=== PATIENT | male | born 1940 | race Caucasian/White ===

== ENCOUNTER → 2019-07-17 | Outpatient (CLI) | payer MEDICARE ==
[~2019-07-17] MED LIST: CEPH-350 PO; GABA300C10 PO; GUAI600T31 PO; KENALOG-40 ONE; LEVA15HF4 IH; LEVO50TA6 PO; LIDOCAINE 1% VIAL ONE; PANT40TA5 PO; RANI150T4 PO; RIVA20TA PO; ROSU5TAB PO; SOTA80TA PO; TAMS-14 PO; TRAM50TA PO
--- NOTE | 2019-07-17 14:25 | DIREP ---
PROCEDURE:FLUOROSCOPIC GUIDANCE NEEDLE PLACEMENT LEFT HIP COMPARISON:None. INDICATIONS:OA LEFT HIP, 0.2 MIN FLUORO TIME; 14.356 mGy TECHNIQUE:After explaining the risks, benefits, and alternatives, both oral and written informed consent was obtained from the patient for fluoroscopically-guided hip steroid injection. The patient's left hip area was sterilely prepped and draped. The proposed needle tract was anesthetized with 1% lidocaine solution. Under fluoroscopic guidance, a 22 gauge spinal needle was advanced into the left hip joint. A small amount of contrast was injected confirm positioning. A mixture of 6 cc 2% lidocaine, and 1 cc of Kenalog 40 was injected into the hip joint. The needle was then removed. The patient experienced no postprocedural complication. Total fluoroscopy time 0.2 minutes FINDINGS:Imaging documents needle placement and injection of the left femoral head and anatomic neck. CONCLUSION:Fluoroscopic-guided left hip joint injection. Dictated by: Anton Vides MD on 07/17/2019 at 02:23 PM
== END | disposition home or self-care (01) ==
LOC: RAD 12:10
PROVIDERS: ATTEND Orthopaedic Surgery
DX: M16.12 Unilateral primary osteoarthritis, left hip (principal)
CPT/HCPCS: 20610; 77002; J2001; J3301; Q9966

== ENCOUNTER → 2019-08-13 | Outpatient (CLI) | payer MEDICARE ==
--- NOTE | 2019-08-13 17:02 | DIREP ---
CORRECTION Corrected on: 08/13/2019; PROCEDURE:CT LOWER EXTREMITY-LT W/O COMPARISON:[facility], CT, CT PELVIS W/O, 08/13/2019, 01:16 PM. INDICATIONS:OSTEOARTHRITIS TECHNIQUE:Axial sections through the left hip were performed with sagittal and coronal reconstructions from source images. No contrast was administered. FINDINGS: BONES:No acute fractures. Old the deformity of the inferior pubic ramus on the left is consistent with a distant fracture, now healed. There osteophytes at the margins of the left acetabulum. The articular surface of the left femur is smooth. The anterior superior portion of the left iliac wing is oriented in an AP plane rather than oblique consistent with old fracture. The SI joint on the left is obliterated JOINTS:Subtle calcification of the acetabular labrum. No narrowing of the joint space. Left SI joint is obliterated. SOFT TISSUES:Normal OTHER:Negative. CONCLUSION:Old fracture inferior pubic ramus and presumed left iliac wing. No significant DJD of the acetabular or femoral articular surfaces. Calcification of the labrum. 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 Dictated by: Magaly Tyler MD on 08/13/2019 at 04:57 PM Dictated by: Magaly Tyler MD on 08/13/2019 at 05:10 PM
--- NOTE | 2019-08-13 17:09 | DIREP ---
PROCEDURE:CT PELVIS W/O COMPARISON:[facility], CT, CT LOWER EXTREMITY-LT W/O, 08/13/2019, 01:18 PM. INDICATIONS:OSTEOARTHRITIS TECHNIQUE:Axial images were created through the pelvis without intravenous contrast material. No oral contrast was administered. Sagittal and coronal reconstructions were performed from source images. 3D surface reconstructions were also performed at the console. FINDINGS: AORTA/VASCULAR:Normal. No aneurysm. RETROPERITONEUM:Normal. No mass or adenopathy. BOWEL/MESENTERY:Normal. There is no intestinal obstruction, free fluid, free air or mesenteric inflammatory changes. Normal appendix right lower quadrant ABDOMINAL WALL:Normal. No mass or hernia. PELVIC ORGANS:Normal. No visible mass. Pelvic organs appropriate for patient age. BONES:Dysmorphic pelvis would left iliac wing oriented in a the sagittal anterior posterior plane consistent with history of old fracture. There is a subtle deformity of the inferior pubic ramus on the left consistent with an old healed fracture. Left SI joint is obliterated . OTHER:Negative. 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 Dictated by: Magaly Tyler MD on 08/13/2019 at 05:01 PM
== END | disposition home or self-care (01) ==
LOC: RAD 12:45
PROVIDERS: ATTEND Orthopaedic Surgery
DX: M16.12 Unilateral primary osteoarthritis, left hip (principal); N28.89 Other specified disorders of kidney and ureter
CPT/HCPCS: 72192; 73700

== ENCOUNTER 2019-09-22 11:44 | Inpatient (IN) | payer MEDICARE ==
[2019-09-17 11:39] VITALS: BP 119/70
[2019-09-17 12:21] LABS: BASOPHIL % 0.3 % (0.0-0.2); EOSINOPHIL # 0.1 10^3/uL (0.0-0.2); EOSINOPHIL % 2.2 % (0.0-5.0); LYMPHOCYTES # 1.4 10^3/uL (1.0-4.8); LYMPHOCYTES % 22.2 % (24.0-44.0); MEAN CELL HGB 33.9 pg (26-34); MEAN CELL HGB CONCENTRATION 33.4 g/dL (33-37); MEAN CORP VOLUME 101.5 fL (78-100); MEAN PLATELET VOLUME 10.6 fL (7.8-11.0); MONOCYTES # 0.6 10^3/uL (0.3-0.8); MONOCYTES % 10.2 % (5.0-12.0); NEUTROPHIL # 4.1 10^3/uL (1.8-7.7); NEUTROPHILS % 64.9 % (41.0-85.0); RED CELL DISTRIBUTION WIDTH 14.1 % (11.5-14.5); WHITE BLOOD CELL 6.3 10^3/uL (4.5-11.0)
[2019-09-17 13:18] LABS: CALCIUM 9.2 mg/dL (8.4-10.5); CARBON DIOXIDE 31.7 mmol/L (20.0-32)
[~2019-09-22] VITALS: Ht 170.2 cm; Wt 83.2 kg
[2019-09-22] VITALS (13 sets, daily range): BP systolic 113–155; BP diastolic 67–99
--- NOTE | 2019-09-22 11:02 | PCM.HP ---
History of Present Illness Reason for Visit: (1) Osteoarthritis of left hip ICD Code: M16.12 - Unilateral primary osteoarthritis, left hip SNOMED: [id number] Hx of Present Illness 79 year old male, healthy left hip pain worsening for the past several months. Tried injection with little relief. Complains of groin pain at night. HX of atrial fibrillation unable to take NSAIDs. BMI 28.0. 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 Travel History EBOLA RISK:Travel to/contact w: No Review of Systems Musculoskeletal: other (left hip pain) Allergies: Coded Allergies: No Known Allergies (Unverified , 09/17/19) Scheduled Gabapentin (Gabapentin), 1 CAP PO BID, (Reported) Levothyroxine Sodium (Levothyroxine Sodium), 1 TAB PO DAILY, (Reported) Pantoprazole Sodium (Pantoprazole Sodium), 1 TAB PO DAILY, (Reported) Ranitidine Hcl (Ranitidine Hcl), 1 TAB PO BID, (Reported) Rivaroxaban (Xarelto), 1 TAB PO HS, (Reported) Rosuvastatin 5MG (Crestor 5MG), 1 TAB PO DAILY, (Reported) Sotalol Hcl (Sotalol), 1 TAB PO BID, (Reported) Tamsulosin Hcl (Flomax), 1 CAP PO DAILY, (Reported) VTE VTE Risk Total Score: >5 VTE Risk Score VTE Risk: Score 0-1 = Low Risk (Aggressive mobilization; early ambulation; no VTE prophylaxis required) Score 2: Moderate Risk (Intermittent/Pneumatic Compression Device OR Lovenox/Heparin/Coumadin) Score 3-4: High Risk (Intermittent/Pneumatic Compression Device AND Lovenox/Heparin/Coumadin) Score > or =5: Highest Risk (Intermittent/Pneumatic Compression Device AND Lovenox/Heparin/Coumadin) VTE VTE Present on Admission: No Currently receiving anticoagul: Yes VTE Risk Total Score: >5 Exam Vital Signs Vital Signs Date Time Temp Pulse Resp B/P (MAP) Pulse Ox O2 Delivery O2 Flow Rate FiO2 09/17/19 11:39 97.5 53 18 119/70 (86) 95 Room Air General Appearance: Alert, Oriented X3, Cooperative, No acute distress HEENT: PERRLA Respiratory: Clear to auscultation, Normal air movement Cardiovascular: Regular rate Abdominal: Normal bowel sounds, Soft, No tenderness Extremities: No clubbing, No cyanosis, No edema, Other (left hip pain with ROM, limping, pain with internal rotation) Skin: No rash, No breakdown Neuro: Normal gait, Normal speech Psych/Mental Status: Mental status NL, Mood NL Assessment/Plan Assessment/Plan Patient History: Cerebrovascular disorder G8 BROTHER, , Age:89 Congestive heart failure G8 BROTHER, , Age:59 Diabetes mellitus 33 FATHER, , Age:86 No known health problems G8 SISTER G8 SISTER V19 CHILD V19 CHILD V19 CHILD Parkinson's disease G8 BROTHER, , Age:81 No Family History of: Alzheimer's disease Asthma Chronic obstructive pulmonary disease Diabetes insipidus Hypertension Plan Left hip OA: chronic, Left ANT today 09/22/19 monitor pain monitor incision PT/OT: WBAT LLE, walker training previous xray shows extensive traumatic arthritis ALEX PALACIOS NP Sep 22, 2019 11:02
[2019-09-22] MEDS: TYLENOL PO SCH ×3 (11:30→22:05)
[~2019-09-22 11:44] MED LIST changes: +ANCEF ONE; +BACTROBAN OINTMENT TP ONE; +BRIDION IV ONE; -CEPH-350 PO; +DECADRON ONE; +DILAUDID ONE; +DIPRIVAN IV ONE; +EXPAREL 133 MG/10 ML VIAL IJ ONE; -GUAI600T31 PO; -KENALOG-40 ONE; -LEVA15HF4 IH; -LIDOCAINE 1% VIAL ONE; +LIDOCAINE 2% VIAL ONE; +NEOSTIGMINE ONE; +NEURONTIN PO SCH; +NS 100ML 100 ML IV ONE; +SENSORCAINE 0.5% VIAL ONE; +SUBLIMAZE ONE; -TRAM50TA PO; +TYLENOL PO SCH; +VERSED ONE; +ZEMURON IV ONE; +ZOFRAN 4 MG/2 ML VIAL ONE
[2019-09-22] MEDS ORDERED: ULTRAM PO PRN ×2 (12:00→18:00)
[2019-09-22] MEDS ORDERED: ULTRAM PO SCH (12:00)
[2019-09-22] MEDS ORDERED: LACTATED RINGERS 1,000 ML IV SCH (12:00)
[2019-09-22] MEDS ORDERED: CEPACOL SORE THROAT LOZENGE MM PRN (12:00)
[2019-09-22] MEDS ORDERED: AMBIEN PO PRN (12:00)
[2019-09-22] MEDS ORDERED: TRANEXAMIC ACID IV ONE (12:16)
[2019-09-22] MEDS: LACTATED RINGERS 1,000 ML IV SCH ×2 (12:17→16:00)
[2019-09-22] MEDS ORDERED: NS 100ML 100 ML IV ONE (13:52)
[2019-09-22] MEDS ORDERED: NS 3000ML IRR IR ONE (13:52)
[2019-09-22] MEDS ORDERED: SODIUM CHLORIDE IR ONE (13:52)
[2019-09-22] MEDS ORDERED: WATER ONE (13:52)
[2019-09-22] MEDS ORDERED: NS 250ML 250 ML IV ONE (13:52)
[2019-09-22] MEDS ORDERED: TRANDATE IV PRN (14:00)
[2019-09-22] MEDS ORDERED: SUBLIMAZE IV PRN (14:00)
[2019-09-22] MEDS ORDERED: PHENERGAN IV PRN (14:00)
[2019-09-22] MEDS ORDERED: ANCEF 2 GM/D5W 50ML IV SCH (14:00)
[2019-09-22] MEDS ORDERED: APRESOLINE IV PRN (14:00)
[2019-09-22] MEDS: ANCEF 2 GM in NS 100ML 100 ML IV SCH ×2 (14:00→22:05)
[2019-09-22] MEDS ORDERED: DILAUDID IV PRN ×2 (14:00→18:00)
[2019-09-22] MEDS ORDERED: ZOFRAN 4 MG/2 ML VIAL IV ONE (14:00)
[2019-09-22] MEDS ORDERED: EPHEDRINE SULFATE ONE (17:38)
[2019-09-22] MEDS ORDERED: ZOFRAN 4 MG/2 ML VIAL ONE (17:54)
--- NOTE | 2019-09-22 17:57 | OPH ---
DATE OF SURGERY: 09/22/2019 PREOPERATIVE DIAGNOSIS: Osteoarthritis of the left hip. POSTOPERATIVE DIAGNOSIS: Osteoarthritis of the left hip. OPERATIVE PROCEDURE: Left total hip arthroplasty using Medacta with a size 60 Versafitcup with 2 screws, a cemented femoral stem size 6. The head was a 36 cobalt chrome with a neutral neck length. SURGEON: Meek Cornejo MD ANESTHESIA: General endotracheal. BLOOD LOSS: 600 mL. DRAINS: None. DESCRIPTION OF INDICATIONS: The patient is a 79-year-old male who has had pain about the left hip intermittently for several years. It has gotten worse in the last several months. He complains of groin pain as well as pain about the right thigh. He complains of night pain. He has had an intra-articular cortisone injection that helped him for several days. He is on Xarelto and cannot take any anti-inflammatories, so he takes Tylenol for the pain and gabapentin. The patient had a pelvic fracture many years ago and his pelvis has healed with some malrotation. Exam shows that he had about 90 degrees of flexion of the hip. He had basically minimal internal and external rotation with severe pain. 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 The x-rays show that he is [id number] medially and inferiorly with some osteophytes about the acetabulum. The patient was taken to the operating room for a total hip arthroplasty for pain relief. DESCRIPTION OF PROCEDURE: The patient was placed on the operating table in the supine position. General endotracheal anesthetic was induced without difficulty. The patient had the left foot and ankle well padded with cast padding and then placed in the traction boot with a piece of egg crate mattress pad in the anterior portion of the foot and ankle. The leg was then attached to the traction unit. Left lower extremity was then sterilely prepped and draped. The patient had the incision made anteriorly about the hip. The incision was taken through the skin and the subcutaneous tissues. The bleeding was controlled with cautery. The tensor fascia was opened in line with the skin incision and the muscle belly was retracted posteriorly. The rectus fascia was opened and the rectus muscle was retracted medially. The circumflex vessels were identified and coagulated with the Aquamantys device. The fat pad over the anterior capsule was excised. The patient then had the capsular incision made and the capsule was retracted proximally and laterally. The femoral neck cut was made with the power saw and the head was removed from the acetabulum using a corkscrew device. The fovea was cleared of any soft tissue and coagulated, and the bleeding was coagulated with the Aquamantys device. The patient's acetabulum was sequentially reamed up to a size 60. The 60 trial had a fairly good fit clinically as well as radiographically. It was a little loose, so we elected to reinforce the press fit with 2 screws. A 60 Versafitcup was impacted into the left acetabulum and we used two 6.5 cancellous screws to help stabilize it. The patient then had the trial liner placed in the acetabulum. Clinically, the alignment appeared satisfactory and radiographically, the alignment appeared satisfactory. The patient then had the posterior ligaments released as well as the anterior capsule. The hip was placed in maximal external rotation as well as hyperextension. The canal was opened with the box chisel and then subsequently with the opening rasp. The proximal femur was then sequentially rasped up to a size 6. We did a trial reduction with a 6 stem, the neutral neck length and initially a -3.5 neck and then a neutral neck length. The neutral neck length had good stability and seemed to more appropriately realign the leg length. The neutral neck length also gave us better stability about the hip. C-arm views showed satisfactory positioning of the components and satisfactory sizing. The trial components were removed. The acetabular liner was replaced and the permanent liner was impacted into position. The patient had the canal cleared with a canal brush. The large cement restrictor was placed at 13 cm. The cement was then introduced and pressure packed. The size 6 cemented stem was then cemented into position and the excess cement was removed with curettes. Once the cement had hardened, we impacted the 36 mm cobalt chrome neutral length head onto the Samaniego taper neck. The hip was reduced and again there was good stability clinically and radiographically, the leg lengths appeared appropriate and the sizing of the components appeared appropriate. The patient then had the wounds irrigated with Betadine-containing solution for 3 minutes. The Betadine solution was then irrigated from the hip and the capsule was closed with a #2 PDS in an interrupted manner. The tensor fascia was closed with a barbed #2 PDS in a running manner. The subcutaneous was closed with a barbed 2-0 Monocryl in a running manner and the skin was closed with yamini. A suction Prevena type dressing was applied. The patient was extubated in the operating room, sent to recovery in stable condition. Meek Cornejo MD DR: MICA/juana JOB# [id number]
[2019-09-22] MEDS: ULTRAM PO SCH ×2 (18:00→22:04)
[2019-09-22] MEDS ORDERED: PEPCID IV ONE (18:01)
[2019-09-22] MEDS ORDERED: PEPCID IV STA (18:03)
[2019-09-22] MEDS ORDERED: REGLAN IV STA (18:04)
--- NOTE | 2019-09-22 18:39 | DIREP ---
PROCEDURE:XRAY HIP MIN 2VW-LT COMPARISON:None. INDICATIONS:post total left hip FINDINGS: BONES:No acute fracture or loose bone fragment. JOINTS:Left femoral and acetabular components and screws appear well seated and in good alignment. SOFT TISSUES:Postoperative air, surgical drain and multiple skin yamini. OTHER:No additional findings. CONCLUSION:Postsurgical changes of recent left total hip arthroplasty. Dictated by: Fatoumata Suresh MD on 09/22/2019 at 06:36 PM
--- NOTE | 2019-09-22 19:45 | NUR ---
Patient arrived on unit
--- NOTE | 2019-09-22 20:06 | PCM.HP ---
History of Present Illness Reason for Visit: S/P Left Hip Replacement History of Present Illness Patient is a 79 M PMH of Afib (Xarelto), HLD, BPH and Hypothyroidism presents s/p Left Hip Arthroplasty with Orthopedic surgery today. Medicine team consulted for management of comorbidities. Patient pain is currently controlled. He denies any distress. He denies fever, chills, chest pain, dyspnea, or any other concerning symptoms. Labs, imaging reviewed. Medical hx and medications reviewed with patient. Patient has not worked with PT yet. He is tolerating PO. Past Medical History Cardiac: AFIB, Hyperlipidemia Renal/: Benign Prostatic Enlarg. Endocrine: Hypothyroidism Past Surgical History: Cholecystectomy, Hernia Repair, Total hip replacement, Other (Hip Surgery) Past Social History Smoke: Quit Alcohol: none Drugs: None Lives: with Family Travel Hx EBOLA RISK:Travel to/contact w: No Review of Systems Constitutional: No: Fever, Chills Eyes: No: Conjunctivae inflammation, Eyelid inflammation ENT: No: Nose discharge, Nose congestion Respiratory: No: Cough, Shortness of breath, SOB with excertion, Wheezing Cardiovascular: No: Chest Pain, Palpitations, Edema Gastrointestinal: No: Nausea, Vomiting, Abdominal Pain Genitourinary: No Incontinence, No Retention Musculoskeletal: No: neck pain, back pain Skin: No: Rash, Lesions, Jaundice, Bruising Neurological: No: Weakness, Numbness, Incoordination, Change in speech, Confusion, Seizures Allergies: Coded Allergies: No Known Allergies (Unverified , 09/17/19) Scheduled Gabapentin (Gabapentin), 1 CAP PO BID, (Reported) Levothyroxine Sodium (Levothyroxine Sodium), 1 TAB PO DAILY, (Reported) Pantoprazole Sodium (Pantoprazole Sodium), 1 TAB PO DAILY, (Reported) Ranitidine Hcl (Ranitidine Hcl), 1 TAB PO BID, (Reported) Rivaroxaban (Xarelto), 1 TAB PO HS, (Reported) Rosuvastatin 5MG (Crestor 5MG), 1 TAB PO DAILY, (Reported) Sotalol Hcl (Sotalol), 1 TAB PO BID, (Reported) Tamsulosin Hcl (Flomax), 1 CAP PO DAILY, (Reported) VTE VTE Risk Total Score: 5 VTE Risk Score VTE Risk: Score 0-1 = Low Risk (Aggressive mobilization; early ambulation; no VTE prophylaxis required) Score 2: Moderate Risk (Intermittent/Pneumatic Compression Device OR Lovenox/Heparin/Coumadin) Score 3-4: High Risk (Intermittent/Pneumatic Compression Device AND Lovenox/Heparin/Coumadin) Score > or =5: Highest Risk (Intermittent/Pneumatic Compression Device AND Lovenox/Heparin/Coumadin) VTE VTE Present on Admission: No Currently receiving anticoagul: Yes VTE Risk Total Score: 5 Exam Vital Signs Vital Signs Date Time Temp Pulse Resp B/P (MAP) Pulse Ox O2 Delivery O2 Flow Rate FiO2 09/22/19 18:25 97.1 73 16 148/78 (101) 96 Nasal Canula 32 General Appearance: Alert, Oriented X3, Cooperative, No acute distress HEENT: Atraumatic, PERRLA, EOMI, Mucous membr. moist/pink Respiratory: Clear to auscultation, Normal air movement Cardiovascular: Normal S1, Normal S2, No murmurs Abdominal: Normal bowel sounds, Soft, No tenderness Extremities: No edema, Normal pulses, No tenderness/swelling Skin: No rash, No breakdown, No lesions Neuro: Normal speech, Strength at 5/5 X4 ext, Normal tone, Sensation intact, Cranial nerves 3-12 NL Psych/Mental Status: Mental status NL, Mood NL Assessment/Plan Assessment/Plan Assessment/Plan Patient is a 79 M PMH of Afib (Xarelto), HLD, BPH and Hypothyroidism presents s/ p Left Hip Arthroplasty with Orthopedic surgery today. Patient History: Cerebrovascular disorder G8 BROTHER, , Age:91 Congestive heart failure G8 BROTHER, , Age:59 Diabetes mellitus 33 FATHER, , Age:86 No known health problems G8 SISTER G8 SISTER V19 CHILD V19 CHILD V19 CHILD Parkinson's disease G8 BROTHER, , Age:81 No Family History of: Alzheimer's disease Asthma Chronic obstructive pulmonary disease Diabetes insipidus Hypertension Plan 1. OA of Left Hip: s/p Left Hip Arthroplasty today. Cont pain control. PT to eval. 2. Afib: cont Xarelto, Betapace for rate control. 3. BPH: cont Tamsulosin 4. Hypothyroidism: cont Synthroid 5. DM: Hg A1C 6.9. No reported hx of DM. Patient can f/u with PCP outpatient. 6. PPx: Abbey Henson MICAH R MD Sep 22, 2019 20:06
[2019-09-22] MEDS ORDERED: XARELTO PO SCH (21:00)
[2019-09-22] MEDS: NEURONTIN PO SCH (22:03)
[2019-09-22] MEDS: BETAPACE PO SCH (22:04)
[2019-09-22] MEDS: PEPCID PO SCH (22:05)
[2019-09-22] MEDS: LIPITOR PO SCH (22:05)
[2019-09-23] VITALS: BP 112/64
[2019-09-23] MEDS: LACTATED RINGERS 1,000 ML IV SCH ×3 (00:41→22:00)
[2019-09-23] MEDS: ULTRAM PO SCH ×6 (04:00→20:40)
[2019-09-23 04:42] VITALS: BP 123/90
[2019-09-23 05:11] LABS: HEMOGLOBIN 12.8 g/dL (13.9-16.3); MEAN CELL HGB 34.1 pg (26-34); MEAN CELL HGB CONCENTRATION 33.3 g/dL (33-37); MEAN CORP VOLUME 102.4 fL (78-100); MEAN PLATELET VOLUME 10.3 fL (7.8-11.0); RED CELL DISTRIBUTION WIDTH 13.5 % (11.5-14.5); WHITE BLOOD CELL 13.1 10^3/uL (4.5-11.0)
[2019-09-23 05:18] LABS: CALCIUM 8.5 mg/dL (8.4-10.5); CARBON DIOXIDE 26.5 mmol/L (20.0-32)
[2019-09-23] MEDS: TYLENOL PO SCH ×3 (05:27→18:37)
[2019-09-23] MEDS: SYNTHROID PO SCH (05:33)
[2019-09-23] MEDS: ANCEF 2 GM in NS 100ML 100 ML IV SCH (05:33)
[2019-09-23 07:52] VITALS: BP 112/74
[2019-09-23] MEDS: COLACE PO SCH (08:42)
[2019-09-23] MEDS: PROTONIX PO SCH (08:42)
[2019-09-23] MEDS: NEURONTIN PO SCH ×2 (08:42→20:41)
[2019-09-23] MEDS: FLOMAX PO SCH (08:42)
[2019-09-23] MEDS: BETAPACE PO SCH ×2 (08:42→20:39)
[2019-09-23] MEDS: PEPCID PO SCH ×2 (08:42→20:41)
[2019-09-23] MEDS ORDERED: PEPCID PO SCH (09:00)
--- NOTE | 2019-09-23 10:19 | PRM.PN ---
Subjective Subjective Date: Sep 23, 2019 Time: 10:15 Subjective patient sitting on bedside, family and PT at bedside denies pain, states his left leg has numbness able to move left foot appetite good Patient History: Cerebrovascular disorder G8 BROTHER, , Age:91 Congestive heart failure G8 BROTHER, , Age:59 Diabetes mellitus 33 FATHER, , Age:86 No known health problems G8 SISTER G8 SISTER V19 CHILD V19 CHILD V19 CHILD Parkinson's disease G8 BROTHER, , Age:81 No Family History of: Alzheimer's disease Asthma Chronic obstructive pulmonary disease Diabetes insipidus Hypertension VTE VTE Risk Total Score: 5 VTE Risk Score VTE Risk: Score 0-1 = Low Risk (Aggressive mobilization; early ambulation; no VTE prophylaxis required) Score 2: Moderate Risk (Intermittent/Pneumatic Compression Device OR Lovenox/Heparin/Coumadin) Score 3-4: High Risk (Intermittent/Pneumatic Compression Device AND Lovenox/Heparin/Coumadin) Score > or =5: Highest Risk (Intermittent/Pneumatic Compression Device AND Lovenox/Heparin/Coumadin) Review of Systems Constitutional: No: Fever, Chills Eyes: No: Conjunctivae inflammation, Eyelid inflammation ENT: No: Nose discharge, Nose congestion Respiratory: No: Cough, Shortness of breath, SOB with excertion, Wheezing Cardiovascular: No: Chest Pain, Palpitations, Edema Gastrointestinal: No: Nausea, Vomiting, Abdominal Pain Genitourinary: No Incontinence, No Retention Musculoskeletal: No: neck pain, back pain Skin: No: Rash, Lesions, Jaundice, Bruising Neurological: No: Weakness, Numbness, Incoordination, Change in speech, Confusion, Seizures Allergies: Coded Allergies: No Known Allergies (Unverified , 09/17/19) Scheduled Gabapentin (Gabapentin), 1 CAP PO BID, (Reported) Levothyroxine Sodium (Levothyroxine Sodium), 1 TAB PO DAILY, (Reported) Pantoprazole Sodium (Pantoprazole Sodium), 1 TAB PO DAILY, (Reported) Ranitidine Hcl (Ranitidine Hcl), 1 TAB PO BID, (Reported) Rivaroxaban (Xarelto), 1 TAB PO HS, (Reported) Rosuvastatin 5MG (Crestor 5MG), 1 TAB PO DAILY, (Reported) Sotalol Hcl (Sotalol), 1 TAB PO BID, (Reported) Tamsulosin Hcl (Flomax), 1 CAP PO DAILY, (Reported) Objective Vitals and I/O Vital Sign - Last 24 Hours 09/22/19 09/22/19 09/22/19 09/22/19 11:44 11:44 13:07 13:17 Temp 97.0 Pulse 54 51 52 Resp 16 16 16 B/P (MAP) 155/99 (117) 125/84 (98) 140/67 (91) Pulse Ox 97 97 94 O2 Delivery Room Air Room Air Room Air Room Air 09/22/19 09/22/19 09/22/19 09/22/19 13:28 17:25 17:25 17:35 Temp 97.1 97.1 Pulse 55 76 69 Resp 16 16 16 B/P (MAP) 113/83 (93) 136/79 (98) 135/83 (100) Pulse Ox 98 97 96 O2 Delivery Room Air Non-Rebreather Non-Rebreather O2 Flow Rate 15 15 15 09/22/19 09/22/19 09/22/19 09/22/19 17:45 17:55 18:05 18:15 Temp 97.1 97.1 97.1 97.1 Pulse 65 67 70 70 Resp 16 16 16 16 B/P (MAP) 141/90 (107) 135/81 (99) 128/92 (104) 134/90 (105) Pulse Ox 97 97 94 96 O2 Delivery Non-Rebreather Nasal Canula Nasal Canula Nasal Canula O2 Flow Rate 15 3 3 3 09/22/19 09/22/19 09/22/19 09/22/19 18:25 20:00 20:38 21:00 Temp 97.1 97.7 97.7 Pulse 73 74 77 Resp 16 18 16 B/P (MAP) 148/78 (101) 137/68 (91) 126/70 (88) Pulse Ox 96 O2 Delivery Nasal Canula Nasal Canula Nasal Cannula Nasal Canula O2 Flow Rate 32 2.00 2.00 2.00 09/23/19 09/23/19 09/23/19 09/23/19 00:00 04:42 07:52 08:34 Temp 97.7 97.2 97.3 Pulse 68 66 69 69 Resp 16 18 18 18 B/P (MAP) 112/64 (80) 123/90 (101) 112/74 (87) Pulse Ox 92 96 O2 Delivery Nasal Canula Nasal Canula Nasal Canula Nasal Cannula O2 Flow Rate 2.00 2.00 2.00 1.50 FiO2 26 09/23/19 08:36 Resp 18 Pulse Ox 96 Intake and Output 09/22/19 09/22/19 09/23/19 15:00 23:00 07:00 Intake Total 200 ml 2400 ml 200 ml Output Total 190 ml 800 ml Balance 200 ml 2210 ml -600 ml General: Alert, Oriented X3, Cooperative, No acute distress HEENT: Atraumatic, PERRLA, EOMI, Mucous membr. moist/pink Lungs: Clear to auscultation, Normal air movement Heart: Normal S1, Normal S2, No murmurs Abdomen: Normal bowel sounds, Soft, No tenderness Extremities: No edema, Normal pulses, No tenderness/swelling Neuro: Normal speech, Strength at 5/5 X4 ext, Normal tone, Sensation intact, Cranial nerves 3-12 NL Psych/Mental Status: Mental status NL, Mood NL All Results(Lab/Rad) Laboratory Tests Test 09/22/19 17:29 09/23/19 04:45 Bedside Glucose 164 White Blood Count 13.1 10^3/uL Red Blood Count 3.75 10^6/uL Hemoglobin 12.8 g/dL Hematocrit 38.4 % Mean Corpuscular Volume 102.4 fL Mean Corpuscular Hemoglobin 34.1 pg Mean Corpuscular Hemoglobin Concent 33.3 g/dL Red Cell Distribution Width 13.5 % Platelet Count 219 10^3/uL Mean Platelet Volume 10.3 fL Sodium Level 138 mmol/L Potassium Level 4.5 mmol/L Chloride Level 103.0 mmol/L Carbon Dioxide Level 26.5 mmol/L Glucose Level 209 mg/dL Blood Urea Nitrogen 17 mg/dL Creatinine 1.34 mg/dL Calcium Level 8.5 mg/dL Anion Gap 13.0 Estimated GFR () 62.5 BUN/Creatinine Ratio 12.0 Current Medications Medications (Trade) Dose Ordered Sig/Eli Route PRN Reason Start Time Stop Time Status Last Admin Dose Admin Mupirocin (Bactroban Ointment) 1 gm OT ONCE TP 09/22/19 06:00 09/22/19 12:35 DC 09/22/19 12:28 Sodium Chloride 100 ml @ ud STK-MED ONCE IV 09/22/19 05:30 09/22/19 05:32 DC Cefazolin Sodium (Ancef) 1 gm STK-MED ONCE .ROUTE 09/22/19 05:30 09/22/19 05:32 DC Neostigmine Methylsulfate (Neostigmine) 10 mg STK-MED ONCE .ROUTE 09/22/19 11:04 09/22/19 11:05 DC Ondansetron HCl (Zofran 4 Mg/2 ml Vial) 4 mg STK-MED ONCE .ROUTE 09/22/19 11:04 09/22/19 11:05 DC Rocuronium Nebo (Zemuron) 100 mg STK-MED ONCE IV 09/22/19 11:04 09/22/19 11:06 DC Hydromorphone HCl (Dilaudid) 2 mg STK-MED ONCE .ROUTE 09/22/19 11:05 09/22/19 11:06 DC Fentanyl Citrate (Sublimaze) 100 mcg STK-MED ONCE .ROUTE 09/22/19 11:05 09/22/19 11:06 DC Propofol (Diprivan) 200 mg STK-MED ONCE IV 09/22/19 11:05 09/22/19 11:06 DC Bupivacaine HCl (Sensorcaine 0.5% Vial) 5 mg STK-MED ONCE .ROUTE 09/22/19 11:06 09/22/19 11:07 DC Lidocaine HCl (Lidocaine 2% Vial) 500 mg STK-MED ONCE .ROUTE 09/22/19 11:06 09/22/19 11:08 DC Rocuronium Nebo (Zemuron) 100 mg STK-MED ONCE IV 09/22/19 11:22 09/22/19 11:23 DC Acetaminophen (Tylenol) 1,000 mg OT PO 09/22/19 11:30 09/22/19 12:38 DC 09/22/19 12:29 Gabapentin (Neurontin) 400 mg OT PO 09/22/19 11:30 09/22/19 12:36 DC 09/22/19 12:29 Acetaminophen (Tylenol) 1,000 mg Q6H PO 09/22/19 11:30 10/22/19 11:29 Gabapentin (Neurontin) 400 mg Q24HRS PO 09/23/19 11:30 09/23/19 11:31 Gabapentin (Neurontin) 300 mg BID PO 09/22/19 21:00 10/22/19 20:59 09/23/19 08:42 Levothyroxine Sodium (Synthroid) 50 mcg ACB PO 09/23/19 06:30 10/23/19 06:29 09/23/19 05:33 Pantoprazole Sodium (Protonix) 40 mg DAILY PO 09/23/19 09:00 10/23/19 08:59 09/23/19 08:42 Sotalol HCl (Betapace) 80 mg BID PO 09/22/19 21:00 10/22/19 20:59 09/23/19 08:42 Tamsulosin HCl (Flomax) 0.4 mg DAILY PO 09/23/19 09:00 10/23/19 08:59 09/23/19 08:42 Famotidine (Pepcid) 20 mg BID PO 09/22/19 21:00 10/22/19 20:59 09/23/19 08:42 Rivaroxaban (Xarelto) 20 mg HS PO 09/22/19 21:00 09/22/19 17:40 DC Atorvastatin Calcium (Lipitor) 20 mg HS PO 09/22/19 21:00 10/22/19 20:59 09/22/19 22:05 Tramadol HCl (Ultram) 50 mg Q6H PO 09/22/19 12:00 09/22/19 17:40 DC Tramadol HCl (Ultram) 100 mg Q6H PRN PO PAIN 7 - 10 09/22/19 12:00 09/22/19 17:40 DC Zolpidem Tartrate (Ambien) 5 mg HS PRN PO INSOMNIA 09/22/19 12:00 10/22/19 11:59 Docusate Sodium (Colace) 100 mg DAILY PO 09/23/19 09:00 10/23/19 08:59 09/23/19 08:42 Throat Lozenges (Cepacol Sore Throat Lozenge) 1 each PRN PRN MM SORE THROAT 09/22/19 12:00 10/22/19 11:59 Famotidine (Pepcid) 20 mg DAILY PO 09/23/19 09:00 09/22/19 20:47 DC Cefazolin Sodium/ Dextrose (Ancef 2 Gm/D5W 50ml) 2 gm Q8 IV 09/22/19 14:00 09/22/19 12:46 DC Tranexamic Acid (Tranexamic Acid) 1,000 mg STK-MED ONCE IV 09/22/19 12:16 09/22/19 12:17 DC Cefazolin Sodium 2 gm/Sodium Chloride 100 ml @ 100 mls/hr Q8 IV 09/22/19 14:00 09/23/19 06:59 DC 09/23/19 05:33 Hydromorphone HCl (Dilaudid) 0.2 mg Q5M PRN IV PAIN 1-3 09/22/19 14:00 09/22/19 20:46 DC Fentanyl Citrate (Sublimaze) 25 mcg Q5MIN PRN IV PAIN 09/22/19 14:00 09/22/19 20:48 DC Ondansetron HCl (Zofran 4 Mg/2 ml Vial) 4 mg OT ONCE IV 09/22/19 14:00 09/22/19 14:01 DC 09/22/19 17:56 Promethazine HCl (Phenergan) 6.25 mg PRN PRN IV NAUSEA / VOMITING 09/22/19 14:00 09/22/19 20:47 DC Labetalol HCl (Trandate) 5 mg Q5MIN PRN IV HYPERTENSION 09/22/19 14:00 09/22/19 20:47 DC Hydralazine HCl (Apresoline) 5 mg Q5MIN PRN IV HYPERTENSION 09/22/19 14:00 09/22/19 20:45 DC Sodium Chloride (Sodium Chloride) 1,000 ml STK-MED ONCE IR 09/22/19 13:52 09/22/19 13:53 DC Sterile Water (Water) 1,000 ml STK-MED ONCE .ROUTE 09/22/19 13:52 09/22/19 13:53 DC Sodium Chloride 100 ml @ ud STK-MED ONCE IV 09/22/19 13:52 09/22/19 13:53 DC Sodium Chloride 250 ml @ ud STK-MED ONCE IV 09/22/19 13:52 09/22/19 13:54 DC Sodium Chloride (NS 3000ml Irr) 3,000 ml STK-MED ONCE IR 09/22/19 13:52 09/22/19 13:54 DC Rivaroxaban (Xarelto) 20 mg HS PO 09/23/19 18:00 10/23/19 17:59 Tramadol HCl (Ultram) 50 mg Q4HR PO 09/22/19 18:00 10/22/19 11:59 09/22/19 22:04 Tramadol HCl (Ultram) 100 mg Q4HR PRN PO PAIN MODERATE 09/22/19 18:00 10/22/19 11:59 Hydromorphone HCl (Dilaudid) 2 mg Q4H PRN IV PAIN 7 - 10 09/22/19 18:00 10/22/19 17:59 Ephedrine Sulfate (Ephedrine Sulfate) 50 mg STK-MED ONCE .ROUTE 09/22/19 17:38 09/22/19 17:40 DC Ondansetron HCl (Zofran 4 Mg/2 ml Vial) 4 mg STK-MED ONCE .ROUTE 09/22/19 17:54 09/22/19 17:56 DC Famotidine (Pepcid) 20 mg STK-MED ONCE IV 09/22/19 18:01 09/22/19 18:03 DC Famotidine (Pepcid) 20 mg STAT STAT IV 09/22/19 18:03 09/22/19 20:44 DC 09/22/19 18:12 Metoclopramide HCl (Reglan) 10 mg STAT STAT IV 09/22/19 18:04 09/22/19 20:44 DC 09/22/19 18:12 Course Sepsis Screening Results: Posi: NEGATIVE Sepsis Qualifier/Stage: NO DEFINITE RISK Vitals & review Data Vital Sign - Last 24 Hours 09/22/19 09/22/19 09/22/19 09/22/19 11:44 11:44 13:07 13:17 Temp 97.0 Pulse 54 51 52 Resp 16 16 16 B/P (MAP) 155/99 (117) 125/84 (98) 140/67 (91) Pulse Ox 97 97 94 O2 Delivery Room Air Room Air Room Air Room Air 09/22/19 09/22/19 09/22/19 09/22/19 13:28 17:25 17:25 17:35 Temp 97.1 97.1 Pulse 55 76 69 Resp 16 16 16 B/P (MAP) 113/83 (93) 136/79 (98) 135/83 (100) Pulse Ox 98 97 96 O2 Delivery Room Air Non-Rebreather Non-Rebreather O2 Flow Rate 15 15 15 09/22/19 09/22/19 09/22/19 09/22/19 17:45 17:55 18:05 18:15 Temp 97.1 97.1 97.1 97.1 Pulse 65 67 70 70 Resp 16 16 16 16 B/P (MAP) 141/90 (107) 135/81 (99) 128/92 (104) 134/90 (105) Pulse Ox 97 97 94 96 O2 Delivery Non-Rebreather Nasal Canula Nasal Canula Nasal Canula O2 Flow Rate 15 3 3 3 09/22/19 09/22/19 09/22/19 09/22/19 18:25 20:00 20:38 21:00 Temp 97.1 97.7 97.7 Pulse 73 74 77 Resp 16 18 16 B/P (MAP) 148/78 (101) 137/68 (91) 126/70 (88) Pulse Ox 96 O2 Delivery Nasal Canula Nasal Canula Nasal Cannula Nasal Canula O2 Flow Rate 32 2.00 2.00 2.00 09/23/19 09/23/19 09/23/19 09/23/19 00:00 04:42 07:52 08:34 Temp 97.7 97.2 97.3 Pulse 68 66 69 69 Resp 16 18 18 18 B/P (MAP) 112/64 (80) 123/90 (101) 112/74 (87) Pulse Ox 92 96 O2 Delivery Nasal Canula Nasal Canula Nasal Canula Nasal Cannula O2 Flow Rate 2.00 2.00 2.00 1.50 FiO2 26 09/23/19 08:36 Resp 18 Pulse Ox 96 Intake and Output 09/22/19 09/22/19 09/23/19 15:00 23:00 07:00 Intake Total 200 ml 2400 ml 200 ml Output Total 190 ml 800 ml Balance 200 ml 2210 ml -600 ml Laboratory Tests Test 09/22/19 17:29 09/23/19 04:45 Bedside Glucose 164 White Blood Count 13.1 10^3/uL Red Blood Count 3.75 10^6/uL Hemoglobin 12.8 g/dL Hematocrit 38.4 % Mean Corpuscular Volume 102.4 fL Mean Corpuscular Hemoglobin 34.1 pg Mean Corpuscular Hemoglobin Concent 33.3 g/dL Red Cell Distribution Width 13.5 % Platelet Count 219 10^3/uL Mean Platelet Volume 10.3 fL Sodium Level 138 mmol/L Potassium Level 4.5 mmol/L Chloride Level 103.0 mmol/L Carbon Dioxide Level 26.5 mmol/L Glucose Level 209 mg/dL Blood Urea Nitrogen 17 mg/dL Creatinine 1.34 mg/dL Calcium Level 8.5 mg/dL Anion Gap 13.0 Estimated GFR () 62.5 BUN/Creatinine Ratio 12.0 Current Medications Medications (Trade) Dose Ordered Sig/Eli PRN Reason Start Time Stop Time Status Last Admin Acetaminophen (Tylenol) 1,000 mg Q6H 09/22/19 11:30 10/22/19 11:29 Atorvastatin Calcium (Lipitor) 20 mg HS 09/22/19 21:00 10/22/19 20:59 09/22/19 22:05 Docusate Sodium (Colace) 100 mg DAILY 09/23/19 09:00 10/23/19 08:59 09/23/19 08:42 Famotidine (Pepcid) 20 mg BID 09/22/19 21:00 10/22/19 20:59 09/23/19 08:42 Gabapentin (Neurontin) 300 mg BID 09/22/19 21:00 10/22/19 20:59 09/23/19 08:42 Gabapentin (Neurontin) 400 mg Q24HRS 09/23/19 11:30 09/23/19 11:31 Hydromorphone HCl (Dilaudid) 2 mg Q4H PRN PAIN 7 - 10 09/22/19 18:00 10/22/19 17:59 Levothyroxine Sodium (Synthroid) 50 mcg ACB 09/23/19 06:30 10/23/19 06:29 09/23/19 05:33 Pantoprazole Sodium (Protonix) 40 mg DAILY 09/23/19 09:00 10/23/19 08:59 09/23/19 08:42 Rivaroxaban (Xarelto) 20 mg HS 09/23/19 18:00 10/23/19 17:59 Sotalol HCl (Betapace) 80 mg BID 09/22/19 21:00 10/22/19 20:59 09/23/19 08:42 Tamsulosin HCl (Flomax) 0.4 mg DAILY 09/23/19 09:00 10/23/19 08:59 09/23/19 08:42 Throat Lozenges (Cepacol Sore Throat Lozenge) 1 each PRN PRN SORE THROAT 09/22/19 12:00 10/22/19 11:59 Tramadol HCl (Ultram) 50 mg Q4HR 09/22/19 18:00 10/22/19 11:59 09/22/19 22:04 Tramadol HCl (Ultram) 100 mg Q4HR PRN PAIN MODERATE 09/22/19 18:00 10/22/19 11:59 Zolpidem Tartrate (Ambien) 5 mg HS PRN INSOMNIA 09/22/19 12:00 10/22/19 11:59 LEVEL 1 SEPSIS INFECTION CRITE: ABX Therapy LEVEL 2-SIRS (LIST ALL THAT AP: None/Not assessed O2 Sat by Pulse Oximetry: 96 Oxygen Flow Rate: 1.50 Assessment/Plan Assessment/Plan Plan 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 Cont pain control. PT to eval. monitor dressing, keep prevenia intact monitor pain labs reviewed ALEX PALACIOS NP Sep 23, 2019 10:19
--- NOTE | 2019-09-23 10:30 | NUR ---
DISCHARGE PLAN CM VISITED WITH PATIENT REGARDING D/C PLAN AND GOALS. PATIENT LIVES AT HOME ALONE IN HIS [address] IN [place]. HE IS INDEPENDENT OF ADLS. HE DOES HAVE A VERY SUPPORTIVE FAMILY. HE HAS A WALKER AND SHOWER CHAIR IN PLACE. HIS PCP IS DR ABENA PHAN IN [place]. HE HAS FINANCIALLY ABILITY TO PAY FOR HIS MEDICATIONS. CM EDUCATED PATIENT ON HOME HEALTH, OUT PATIENT, LONG-TERM AND SWING BED SERVICES. PATIENT DENIES THE NEED FOR ANY SERVICES AT THIS TIME. CHOICE REFUSAL SIGNED AND PLACED IN CHART. DISCHARGE GOAL IS FOR PATIENT TO DISCHARGE HOME WITH HIS GRANDSON IN [place] FOR 2-4 WEEKS AND CONTINUE ROUTINE CARE THERE UNTIL HE CAN SAFELY AMBULATE IN HIS OWN HOME. CM WILL CONTINUE TO MONITOR NEEDS OF PT UNTIL D/C.
[2019-09-23] MEDS: HUMULIN R SQ SCH ×4 (11:00→20:43)
[2019-09-23] MEDS ORDERED: NEURONTIN PO SCH (11:30)
[2019-09-23 11:42] VITALS: BP 101/59
--- NOTE | 2019-09-23 13:44 | PRM.PN ---
Subjective Subjective Date: Sep 23, 2019 Time: 13:30 Subjective Patient denies complaints. Pain controlled. He ambulated with PT today. Labs reviewed. No acute issues. Patient History: Cerebrovascular disorder G8 BROTHER, , Age:91 Congestive heart failure G8 BROTHER, , Age:59 Diabetes mellitus 33 FATHER, , Age:86 No known health problems G8 SISTER G8 SISTER V19 CHILD V19 CHILD V19 CHILD Parkinson's disease G8 BROTHER, , Age:81 No Family History of: Alzheimer's disease Asthma Chronic obstructive pulmonary disease Diabetes insipidus Hypertension VTE VTE Risk Total Score: 5 VTE Risk Score VTE Risk: Score 0-1 = Low Risk (Aggressive mobilization; early ambulation; no VTE prophylaxis required) Score 2: Moderate Risk (Intermittent/Pneumatic Compression Device OR Lovenox/Heparin/Coumadin) Score 3-4: High Risk (Intermittent/Pneumatic Compression Device AND Lovenox/Heparin/Coumadin) Score > or =5: Highest Risk (Intermittent/Pneumatic Compression Device AND Lovenox/Heparin/Coumadin) Review of Systems Allergies: Coded Allergies: No Known Allergies (Unverified , 09/17/19) Scheduled Gabapentin (Gabapentin), 1 CAP PO BID, (Reported) Levothyroxine Sodium (Levothyroxine Sodium), 1 TAB PO DAILY, (Reported) Pantoprazole Sodium (Pantoprazole Sodium), 1 TAB PO DAILY, (Reported) Ranitidine Hcl (Ranitidine Hcl), 1 TAB PO BID, (Reported) Rivaroxaban (Xarelto), 1 TAB PO HS, (Reported) Rosuvastatin 5MG (Crestor 5MG), 1 TAB PO DAILY, (Reported) Sotalol Hcl (Sotalol), 1 TAB PO BID, (Reported) Tamsulosin Hcl (Flomax), 1 CAP PO DAILY, (Reported) Objective Vitals and I/O Vital Sign - Last 24 Hours 09/22/19 09/22/19 09/22/19 09/22/19 11:44 11:44 13:07 13:17 Temp 97.0 Pulse 54 51 52 Resp 16 16 16 B/P (MAP) 155/99 (117) 125/84 (98) 140/67 (91) Pulse Ox 97 97 94 O2 Delivery Room Air Room Air Room Air Room Air 09/22/19 09/22/19 09/22/19/9/19 13:28 17:25 17:25 17:35 Temp 97.1 97.1 Pulse 55 76 69 Resp 16 16 16 B/P (MAP) 113/83 (93) 136/79 (98) 135/83 (100) Pulse Ox 98 97 96 O2 Delivery Room Air Non-Rebreather Non-Rebreather O2 Flow Rate 15 15 15 09/22/19 09/22/19 09/22/19 09/22/19 17:45 17:55 18:05 18:15 Temp 97.1 97.1 97.1 97.1 Pulse 65 67 70 70 Resp 16 16 16 16 B/P (MAP) 141/90 (107) 135/81 (99) 128/92 (104) 134/90 (105) Pulse Ox 97 97 94 96 O2 Delivery Non-Rebreather Nasal Canula Nasal Canula Nasal Canula O2 Flow Rate 15 3 3 3 09/22/19 09/22/19 09/22/19 09/22/19 18:25 20:00 20:38 21:00 Temp 97.1 97.7 97.7 Pulse 73 74 77 Resp 16 18 16 B/P (MAP) 148/78 (101) 137/68 (91) 126/70 (88) Pulse Ox 96 O2 Delivery Nasal Canula Nasal Canula Nasal Cannula Nasal Canula O2 Flow Rate 32 2.00 2.00 2.00 09/23/19 09/23/19 09/23/19 09/23/19 00:00 04:42 07:52 08:34 Temp 97.7 97.2 97.3 Pulse 68 66 69 69 Resp 16 18 18 18 B/P (MAP) 112/64 (80) 123/90 (101) 112/74 (87) Pulse Ox 92 96 O2 Delivery Nasal Canula Nasal Canula Nasal Canula Nasal Cannula O2 Flow Rate 2.00 2.00 2.00 1.50 FiO2 26 09/23/19 08:36 Resp 18 Pulse Ox 96 Intake and Output 09/22/19 09/22/19 09/23/19 15:00 23:00 07:00 Intake Total 200 ml 2400 ml 200 ml Output Total 190 ml 800 ml Balance 200 ml 2210 ml -600 ml General: Alert, Oriented X3, Cooperative, No acute distress HEENT: Atraumatic, PERRLA, EOMI, Mucous membr. moist/pink Neck: Supple, No JVD Lungs: Clear to auscultation, Normal air movement Heart: Normal S1, Normal S2, No murmurs Abdomen: Normal bowel sounds, Soft, No tenderness Extremities: No edema, Normal pulses, No tenderness/swelling Skin: No rashes, No breakdown, No significant lesion Neuro: Normal speech, Strength at 5/5 X4 ext, Normal tone, Sensation intact, Cranial nerves 3-12 NL Psych/Mental Status: Mental status NL, Mood NL All Results(Lab/Rad) Laboratory Tests Test 09/22/19 17:29 09/23/19 04:45 Bedside Glucose 164 White Blood Count 13.1 10^3/uL Red Blood Count 3.75 10^6/uL Hemoglobin 12.8 g/dL Hematocrit 38.4 % Mean Corpuscular Volume 102.4 fL Mean Corpuscular Hemoglobin 34.1 pg Mean Corpuscular Hemoglobin Concent 33.3 g/dL Red Cell Distribution Width 13.5 % Platelet Count 219 10^3/uL Mean Platelet Volume 10.3 fL Sodium Level 138 mmol/L Potassium Level 4.5 mmol/L Chloride Level 103.0 mmol/L Carbon Dioxide Level 26.5 mmol/L Glucose Level 209 mg/dL Blood Urea Nitrogen 17 mg/dL Creatinine 1.34 mg/dL Calcium Level 8.5 mg/dL Anion Gap 13.0 Estimated GFR () 62.5 BUN/Creatinine Ratio 12.0 Current Medications Medications (Trade) Dose Ordered Sig/Eli Route PRN Reason Start Time Stop Time Status Last Admin Dose Admin Mupirocin (Bactroban Ointment) 1 gm OT ONCE TP 09/22/19 06:00 09/22/19 12:35 DC 09/22/19 12:28 Sodium Chloride 100 ml @ ud STK-MED ONCE IV 09/22/19 05:30 09/22/19 05:32 DC Cefazolin Sodium (Ancef) 1 gm STK-MED ONCE .ROUTE 09/22/19 05:30 09/22/19 05:32 DC Neostigmine Methylsulfate (Neostigmine) 10 mg STK-MED ONCE .ROUTE 09/22/19 11:04 09/22/19 11:05 DC Ondansetron HCl (Zofran 4 Mg/2 ml Vial) 4 mg STK-MED ONCE .ROUTE 09/22/19 11:04 09/22/19 11:05 DC Rocuronium [place] (Zemuron) 100 mg STK-MED ONCE IV 09/22/19 11:04 09/22/19 11:06 DC Hydromorphone HCl (Dilaudid) 2 mg STK-MED ONCE .ROUTE 09/22/19 11:05 09/22/19 11:06 DC Fentanyl Citrate (Sublimaze) 100 mcg STK-MED ONCE .ROUTE 09/22/19 11:05 09/22/19 11:06 DC Propofol (Diprivan) 200 mg STK-MED ONCE IV 09/22/19 11:05 09/22/19 11:06 DC Bupivacaine HCl (Sensorcaine 0.5% Vial) 5 mg STK-MED ONCE .ROUTE 09/22/19 11:06 09/22/19 11:07 DC Lidocaine HCl (Lidocaine 2% Vial) 500 mg STK-MED ONCE .ROUTE 09/22/19 11:06 09/22/19 11:08 DC Rocuronium [place] (Zemuron) 100 mg STK-MED ONCE IV 09/22/19 11:22 09/22/19 11:23 DC Acetaminophen (Tylenol) 1,000 mg OT PO 09/22/19 11:30 09/22/19 12:38 DC 09/22/19 12:29 Gabapentin (Neurontin) 400 mg OT PO 09/22/19 11:30 09/22/19 12:36 DC 09/22/19 12:29 Acetaminophen (Tylenol) 1,000 mg Q6H PO 09/22/19 11:30 10/22/19 11:29 Gabapentin (Neurontin) 400 mg Q24HRS PO 09/23/19 11:30 09/23/19 11:31 Gabapentin (Neurontin) 300 mg BID PO 09/22/19 21:00 10/22/19 20:59 09/23/19 08:42 Levothyroxine Sodium (Synthroid) 50 mcg ACB PO 09/23/19 06:30 10/23/19 06:29 09/23/19 05:33 Pantoprazole Sodium (Protonix) 40 mg DAILY PO 09/23/19 09:00 10/23/19 08:59 09/23/19 08:42 Sotalol HCl (Betapace) 80 mg BID PO 09/22/19 21:00 10/22/19 20:59 09/23/19 08:42 Tamsulosin HCl (Flomax) 0.4 mg DAILY PO 09/23/19 09:00 10/23/19 08:59 09/23/19 08:42 Famotidine (Pepcid) 20 mg BID PO 09/22/19 21:00 10/22/19 20:59 09/23/19 08:42 Rivaroxaban (Xarelto) 20 mg HS PO 09/22/19 21:00 09/22/19 17:40 DC Atorvastatin Calcium (Lipitor) 20 mg HS PO 09/22/19 21:00 10/22/19 20:59 09/22/19 22:05 Tramadol HCl (Ultram) 50 mg Q6H PO 09/22/19 12:00 09/22/19 17:40 DC Tramadol HCl (Ultram) 100 mg Q6H PRN PO PAIN 7 - 10 09/22/19 12:00 09/22/19 17:40 DC Zolpidem Tartrate (Ambien) 5 mg HS PRN PO INSOMNIA 09/22/19 12:00 10/22/19 11:59 Docusate Sodium (Colace) 100 mg DAILY PO 09/23/19 09:00 10/23/19 08:59 09/23/19 08:42 Throat Lozenges (Cepacol Sore Throat Lozenge) 1 each PRN PRN MM SORE THROAT 09/22/19 12:00 10/22/19 11:59 Famotidine (Pepcid) 20 mg DAILY PO 09/23/19 09:00 09/22/19 20:47 DC Cefazolin Sodium/ Dextrose (Ancef 2 Gm/D5W 50ml) 2 gm Q8 IV 09/22/19 14:00 09/22/19 12:46 DC Tranexamic Acid (Tranexamic Acid) 1,000 mg STK-MED ONCE IV 09/22/19 12:16 09/22/19 12:17 DC Cefazolin Sodium 2 gm/Sodium Chloride 100 ml @ 100 mls/hr Q8 IV 09/22/19 14:00 09/23/19 06:59 DC 09/23/19 05:33 Hydromorphone HCl (Dilaudid) 0.2 mg Q5M PRN IV PAIN 1-3 09/22/19 14:00 09/22/19 20:46 DC Fentanyl Citrate (Sublimaze) 25 mcg Q5MIN PRN IV PAIN 09/22/19 14:00 09/22/19 20:48 DC Ondansetron HCl (Zofran 4 Mg/2 ml Vial) 4 mg OT ONCE IV 09/22/19 14:00 09/22/19 14:01 DC 09/22/19 17:56 Promethazine HCl (Phenergan) 6.25 mg PRN PRN IV NAUSEA / VOMITING 09/22/19 14:00 09/22/19 20:47 DC Labetalol HCl (Trandate) 5 mg Q5MIN PRN IV HYPERTENSION 09/22/19 14:00 09/22/19 20:47 DC Hydralazine HCl (Apresoline) 5 mg Q5MIN PRN IV HYPERTENSION 09/22/19 14:00 09/22/19 20:45 DC Sodium Chloride (Sodium Chloride) 1,000 ml STK-MED ONCE IR 09/22/19 13:52 09/22/19 13:53 DC Sterile Water (Water) 1,000 ml STK-MED ONCE .ROUTE 09/22/19 13:52 09/22/19 13:53 DC Sodium Chloride 100 ml @ ud STK-MED ONCE IV 09/22/19 13:52 09/22/19 13:53 DC Sodium Chloride 250 ml @ ud STK-MED ONCE IV 09/22/19 13:52 09/22/19 13:54 DC Sodium Chloride (NS 3000ml Irr) 3,000 ml STK-MED ONCE IR 09/22/19 13:52 09/22/19 13:54 DC Rivaroxaban (Xarelto) 20 mg HS PO 09/23/19 18:00 10/23/19 17:59 Tramadol HCl (Ultram) 50 mg Q4HR PO 09/22/19 18:00 10/22/19 11:59 09/22/19 22:04 Tramadol HCl (Ultram) 100 mg Q4HR PRN PO PAIN MODERATE 09/22/19 18:00 10/22/19 11:59 Hydromorphone HCl (Dilaudid) 2 mg Q4H PRN IV PAIN 7 - 10 09/22/19 18:00 10/22/19 17:59 Ephedrine Sulfate (Ephedrine Sulfate) 50 mg STK-MED ONCE .ROUTE 09/22/19 17:38 09/22/19 17:40 DC Ondansetron HCl (Zofran 4 Mg/2 ml Vial) 4 mg STK-MED ONCE .ROUTE 09/22/19 17:54 09/22/19 17:56 DC Famotidine (Pepcid) 20 mg STK-MED ONCE IV 09/22/19 18:01 09/22/19 18:03 DC Famotidine (Pepcid) 20 mg STAT STAT IV 09/22/19 18:03 09/22/19 20:44 DC 09/22/19 18:12 Metoclopramide HCl (Reglan) 10 mg STAT STAT IV 09/22/19 18:04 09/22/19 20:44 DC 09/22/19 18:12 Course Sepsis Screening Results: Posi: NEGATIVE Sepsis Qualifier/Stage: NO DEFINITE RISK Vitals & review Data Vital Sign - Last 24 Hours 09/22/19 09/22/19 09/22/19 09/22/19 11:44 11:44 13:07 13:17 Temp 97.0 Pulse 54 51 52 Resp 16 16 16 B/P (MAP) 155/99 (117) 125/84 (98) 140/67 (91) Pulse Ox 97 97 94 O2 Delivery Room Air Room Air Room Air Room Air 09/22/19 09/22/19 09/22/19 09/22/19 13:28 17:25 17:25 17:35 Temp 97.1 97.1 Pulse 55 76 69 Resp 16 16 16 B/P (MAP) 113/83 (93) 136/79 (98) 135/83 (100) Pulse Ox 98 97 96 O2 Delivery Room Air Non-Rebreather Non-Rebreather O2 Flow Rate 15 15 15 09/22/19 09/22/19 09/22/19 09/22/19 17:45 17:55 18:05 18:15 Temp 97.1 97.1 97.1 97.1 Pulse 65 67 70 70 Resp 16 16 16 16 B/P (MAP) 141/90 (107) 135/81 (99) 128/92 (104) 134/90 (105) Pulse Ox 97 97 94 96 O2 Delivery Non-Rebreather Nasal Canula Nasal Canula Nasal Canula O2 Flow Rate 15 3 3 3 09/22/19 09/22/19 09/22/19 09/22/19 18:25 20:00 20:38 21:00 Temp 97.1 97.7 97.7 Pulse 73 74 77 Resp 16 18 16 B/P (MAP) 148/78 (101) 137/68 (91) 126/70 (88) Pulse Ox 96 O2 Delivery Nasal Canula Nasal Canula Nasal Cannula Nasal Canula O2 Flow Rate 32 2.00 2.00 2.00 09/23/19 09/23/19 09/23/19 09/23/19 00:00 04:42 07:52 08:34 Temp 97.7 97.2 97.3 Pulse 68 66 69 69 Resp 16 18 18 18 B/P (MAP) 112/64 (80) 123/90 (101) 112/74 (87) Pulse Ox 92 96 O2 Delivery Nasal Canula Nasal Canula Nasal Canula Nasal Cannula O2 Flow Rate 2.00 2.00 2.00 1.50 FiO2 26 09/23/19 08:36 Resp 18 Pulse Ox 96 Intake and Output 09/22/19 09/22/19 09/23/19 15:00 23:00 07:00 Intake Total 200 ml 2400 ml 200 ml Output Total 190 ml 800 ml Balance 200 ml 2210 ml -600 ml Laboratory Tests Test 09/22/19 17:29 09/23/19 04:45 Bedside Glucose 164 White Blood Count 13.1 10^3/uL Red Blood Count 3.75 10^6/uL Hemoglobin 12.8 g/dL Hematocrit 38.4 % Mean Corpuscular Volume 102.4 fL Mean Corpuscular Hemoglobin 34.1 pg Mean Corpuscular Hemoglobin Concent 33.3 g/dL Red Cell Distribution Width 13.5 % Platelet Count 219 10^3/uL Mean Platelet Volume 10.3 fL Sodium Level 138 mmol/L Potassium Level 4.5 mmol/L Chloride Level 103.0 mmol/L Carbon Dioxide Level 26.5 mmol/L Glucose Level 209 mg/dL Blood Urea Nitrogen 17 mg/dL Creatinine 1.34 mg/dL Calcium Level 8.5 mg/dL Anion Gap 13.0 Estimated GFR () 62.5 BUN/Creatinine Ratio 12.0 Current Medications Medications (Trade) Dose Ordered Sig/Eli PRN Reason Start Time Stop Time Status Last Admin Acetaminophen (Tylenol) 1,000 mg Q6H 09/22/19 11:30 10/22/19 11:29 Atorvastatin Calcium (Lipitor) 20 mg HS 09/22/19 21:00 10/22/19 20:59 09/22/19 22:05 Docusate Sodium (Colace) 100 mg DAILY 09/23/19 09:00 10/23/19 08:59 09/23/19 08:42 Famotidine (Pepcid) 20 mg BID 09/22/19 21:00 10/22/19 20:59 09/23/19 08:42 Gabapentin (Neurontin) 300 mg BID 09/22/19 21:00 10/22/19 20:59 09/23/19 08:42 Gabapentin (Neurontin) 400 mg Q24HRS 09/23/19 11:30 09/23/19 11:31 Hydromorphone HCl (Dilaudid) 2 mg Q4H PRN PAIN 7 - 10 09/22/19 18:00 10/22/19 17:59 Levothyroxine Sodium (Synthroid) 50 mcg ACB 09/23/19 06:30 10/23/19 06:29 09/23/19 05:33 Pantoprazole Sodium (Protonix) 40 mg DAILY 09/23/19 09:00 10/23/19 08:59 09/23/19 08:42 Rivaroxaban (Xarelto) 20 mg HS 09/23/19 18:00 10/23/19 17:59 Sotalol HCl (Betapace) 80 mg BID 09/22/19 21:00 10/22/19 20:59 09/23/19 08:42 Tamsulosin HCl (Flomax) 0.4 mg DAILY 09/23/19 09:00 10/23/19 08:59 09/23/19 08:42 Throat Lozenges (Cepacol Sore Throat Lozenge) 1 each PRN PRN SORE THROAT 09/22/19 12:00 10/22/19 11:59 Tramadol HCl (Ultram) 50 mg Q4HR 09/22/19 18:00 10/22/19 11:59 09/22/19 22:04 Tramadol HCl (Ultram) 100 mg Q4HR PRN PAIN MODERATE 09/22/19 18:00 10/22/19 11:59 Zolpidem Tartrate (Ambien) 5 mg HS PRN INSOMNIA 09/22/19 12:00 10/22/19 11:59 LEVEL 1 SEPSIS INFECTION CRITE: ABX Therapy LEVEL 2-SIRS (LIST ALL THAT AP: None/Not assessed Cardiovascular Evidence: Not Assessed or None Hematologic Evidence: None/Not assessed Hepatic Evidence: None/Not assessed Metabolic Evidence: None/Not assessed Neurological Evidence: None/Not assessed Respiratory Evidence: None/Not assessed Renal Evidence: None/Not assessed O2 Sat by Pulse Oximetry: 92 Oxygen Flow Rate: 1.00 Assessment/Plan Assessment/Plan Assessment/Plan 1. 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 Cont pain control. cont PT eval/treat. 2. Afib: cont Xarelto, Betapace for rate control. 3. BPH: cont Tamsulosin 4. Hypothyroidism: cont Synthroid 5. DM: Patient states that PCP d/c Oral Hypoglycemics. A1C @ goal for age group without medications. We will cover with SSI while in hospital. F/U outpatient for further treatment recs. 6. PPx: Abbey Henson MICAH R MD Sep 23, 2019 13:44
--- NOTE | 2019-09-23 14:05 | NUR ---
Post op day 1 L ANT. Patient resting in bed. Patient states able to ambulate without pain with [employer]. Patient reports pain well controlled. Some residual numbness/weakness in left quadriceps. Site is CDI with dressing intact. VSS. Patient states no questions or concerns.
[2019-09-23 17:49] VITALS: BP 127/78
[2019-09-23] MEDS: XARELTO PO SCH ×2 (18:00→20:40)
[2019-09-23 20:28] VITALS: BP 130/67
[2019-09-23] MEDS: LIPITOR PO SCH (20:40)
[2019-09-24 00:25] VITALS: BP 99/68
[2019-09-24] MEDS: ULTRAM PO SCH ×6 (04:12→21:13)
[2019-09-24 05:13] VITALS: BP 115/75
[2019-09-24 05:25] LABS: HEMOGLOBIN 11.1 g/dL (13.9-16.3); MEAN CELL HGB 34.3 pg (26-34); MEAN CELL HGB CONCENTRATION 33.1 g/dL (33-37); MEAN CORP VOLUME 103.4 fL (78-100); MEAN PLATELET VOLUME 10.4 fL (7.8-11.0); RED CELL DISTRIBUTION WIDTH 13.9 % (11.5-14.5); WHITE BLOOD CELL 9.2 10^3/uL (4.5-11.0)
[2019-09-24 05:45] LABS: CALCIUM 8.3 mg/dL (8.4-10.5); CARBON DIOXIDE 27.7 mmol/L (20.0-32)
[2019-09-24] MEDS: SYNTHROID PO SCH (05:49)
[2019-09-24] MEDS: TYLENOL PO SCH ×7 (05:49→23:44)
[2019-09-24] MEDS: HUMULIN R SQ SCH ×4 (07:13→21:00)
[2019-09-24] MEDS: LACTATED RINGERS 1,000 ML IV SCH ×4 (08:00→21:50)
--- NOTE | 2019-09-24 08:46 | PRM.PN ---
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+ Cont with PT Have Dr Vasquez address dizziness Patient History: Cerebrovascular disorder G8 BROTHER, , Age:91 Congestive heart failure G8 BROTHER, , Age:59 Diabetes mellitus 33 FATHER, , Age:86 No known health problems G8 SISTER G8 SISTER V19 CHILD V19 CHILD V19 CHILD Parkinson's disease G8 BROTHER, , Age:81 No Family History of: Alzheimer's disease Asthma Chronic obstructive pulmonary disease Diabetes insipidus Hypertension VTE VTE Risk Total Score: 5 VTE Risk Score VTE Risk: Score 0-1 = Low Risk (Aggressive mobilization; early ambulation; no VTE prophylaxis required) Score 2: Moderate Risk (Intermittent/Pneumatic Compression Device OR Lovenox/Heparin/Coumadin) Score 3-4: High Risk (Intermittent/Pneumatic Compression Device AND Lovenox/Heparin/Coumadin) Score > or =5: Highest Risk (Intermittent/Pneumatic Compression Device AND Lovenox/Heparin/Coumadin) Review of Systems Allergies: Coded Allergies: No Known Allergies (Unverified , 09/17/19) Scheduled Gabapentin (Gabapentin), 1 CAP PO BID, (Reported) Levothyroxine Sodium (Levothyroxine Sodium), 1 TAB PO DAILY, (Reported) Pantoprazole Sodium (Pantoprazole Sodium), 1 TAB PO DAILY, (Reported) Ranitidine Hcl (Ranitidine Hcl), 1 TAB PO BID, (Reported) Rivaroxaban (Xarelto), 1 TAB PO HS, (Reported) Rosuvastatin 5MG (Crestor 5MG), 1 TAB PO DAILY, (Reported) Sotalol Hcl (Sotalol), 1 TAB PO BID, (Reported) Tamsulosin Hcl (Flomax), 1 CAP PO DAILY, (Reported) Objective Vitals and I/O Vital Sign - Last 24 Hours 09/22/19 09/22/19 09/22/19 09/22/19 11:44 11:44 13:07 13:17 Temp 97.0 Pulse 54 51 52 Resp 16 16 16 B/P (MAP) 155/99 (117) 125/84 (98) 140/67 (91) Pulse Ox 97 97 94 O2 Delivery Room Air Room Air Room Air Room Air 12/909/22/19 09/22/19 09/22/19 13:28 17:25 17:25 17:35 Temp 97.1 97.1 Pulse 55 76 69 Resp 16 16 16 B/P (MAP) 113/83 (93) 136/79 (98) 135/83 (100) Pulse Ox 98 97 96 O2 Delivery Room Air Non-Rebreather Non-Rebreather O2 Flow Rate 15 15 15 09/22/19 09/22/19 09/22/19 09/22/19 17:45 17:55 18:05 18:15 Temp 97.1 97.1 97.1 97.1 Pulse 65 67 70 70 Resp 16 16 16 16 B/P (MAP) 141/90 (107) 135/81 (99) 128/92 (104) 134/90 (105) Pulse Ox 97 97 94 96 O2 Delivery Non-Rebreather Nasal Canula Nasal Canula Nasal Canula O2 Flow Rate 15 3 3 3 09/22/19 09/22/19 09/22/19 09/22/19 18:25 20:00 20:38 21:00 Temp 97.1 97.7 97.7 Pulse 73 74 77 Resp 16 18 16 B/P (MAP) 148/78 (101) 137/68 (91) 126/70 (88) Pulse Ox 96 O2 Delivery Nasal Canula Nasal Canula Nasal Cannula Nasal Canula O2 Flow Rate 32 2.00 2.00 2.00 09/23/19 09/23/19 09/23/19 09/23/19 00:00 04:42 07:52 08:34 Temp 97.7 97.2 97.3 Pulse 68 66 69 69 Resp 16 18 18 18 B/P (MAP) 112/64 (80) 123/90 (101) 112/74 (87) Pulse Ox 92 96 O2 Delivery Nasal [place] Nasal Canula Nasal Canula Nasal Cannula O2 Flow Rate 2.00 2.00 2.00 1.50 FiO2 26 09/23/19 08:36 Resp 18 Pulse Ox 96 Intake and Output 09/22/19 09/22/19 09/23/19 15:00 23:00 07:00 Intake Total 200 ml 2400 ml 200 ml Output Total 190 ml 800 ml Balance 200 ml 2210 ml -600 ml General: Alert, Oriented X3, Cooperative, No acute distress HEENT: Atraumatic, PERRLA, EOMI, Mucous membr. moist/pink Neck: Supple, No JVD Lungs: Clear to auscultation, Normal air movement Heart: Normal S1, Normal S2, No murmurs Abdomen: Normal bowel sounds, Soft, No tenderness Extremities: No edema, Normal pulses, No tenderness/swelling Skin: No rashes, No breakdown, No significant lesion Neuro: Normal speech, Strength at 5/5 X4 ext, Normal tone, Sensation intact, Cranial nerves 3-12 NL Psych/Mental Status: Mental status NL, Mood NL All Results(Lab/Rad) Laboratory Tests Test 09/22/19 17:29 09/23/19 04:45 Bedside Glucose 164 White Blood Count 13.1 10^3/uL Red Blood Count 3.75 10^6/uL Hemoglobin 12.8 g/dL Hematocrit 38.4 % Mean Corpuscular Volume 102.4 fL Mean Corpuscular Hemoglobin 34.1 pg Mean Corpuscular Hemoglobin Concent 33.3 g/dL Red Cell Distribution Width 13.5 % Platelet Count 219 10^3/uL Mean Platelet Volume 10.3 fL Sodium Level 138 mmol/L Potassium Level 4.5 mmol/L Chloride Level 103.0 mmol/L Carbon Dioxide Level 26.5 mmol/L Glucose Level 209 mg/dL Blood Urea Nitrogen 17 mg/dL Creatinine 1.34 mg/dL Calcium Level 8.5 mg/dL Anion Gap 13.0 Estimated GFR () 62.5 BUN/Creatinine Ratio 12.0 Current Medications Medications (Trade) Dose Ordered Sig/Eli Route PRN Reason Start Time Stop Time Status Last Admin Dose Admin Mupirocin (Bactroban Ointment) 1 gm OT ONCE TP 09/22/19 06:00 09/22/19 12:35 DC 09/22/19 12:28 Sodium Chloride 100 ml @ ud STK-MED ONCE IV 09/22/19 05:30 09/22/19 05:32 DC Cefazolin Sodium (Ancef) 1 gm STK-MED ONCE .ROUTE 09/22/19 05:30 09/22/19 05:32 DC Neostigmine Methylsulfate (Neostigmine) 10 mg STK-MED ONCE .ROUTE 09/22/19 11:04 09/22/19 11:05 DC Ondansetron HCl (Zofran 4 Mg/2 ml Vial) 4 mg STK-MED ONCE .ROUTE 09/22/19 11:04 09/22/19 11:05 DC Rocuronium [place] (Zemuron) 100 mg STK-MED ONCE IV 09/22/19 11:04 09/22/19 11:06 DC Hydromorphone HCl (Dilaudid) 2 mg STK-MED ONCE .ROUTE 09/22/19 11:05 09/22/19 11:06 DC Fentanyl Citrate (Sublimaze) 100 mcg STK-MED ONCE .ROUTE 09/22/19 11:05 09/22/19 11:06 DC Propofol (Diprivan) 200 mg STK-MED ONCE IV 09/22/19 11:05 09/22/19 11:06 DC Bupivacaine HCl (Sensorcaine 0.5% Vial) 5 mg STK-MED ONCE .ROUTE 09/22/19 11:06 09/22/19 11:07 DC Lidocaine HCl (Lidocaine 2% Vial) 500 mg STK-MED ONCE .ROUTE 09/22/19 11:06 09/22/19 11:08 DC Rocuronium [place] (Zemuron) 100 mg STK-MED ONCE IV 09/22/19 11:22 09/22/19 11:23 DC Acetaminophen (Tylenol) 1,000 mg OT PO 09/22/19 11:30 09/22/19 12:38 DC 09/22/19 12:29 Gabapentin (Neurontin) 400 mg OT PO 09/22/19 11:30 09/22/19 12:36 DC 09/22/19 12:29 Acetaminophen (Tylenol) 1,000 mg Q6H PO 09/22/19 11:30 10/22/19 11:29 Gabapentin (Neurontin) 400 mg Q24HRS PO 09/23/19 11:30 09/23/19 11:31 Gabapentin (Neurontin) 300 mg BID PO 09/22/19 21:00 10/22/19 20:59 09/23/19 08:42 Levothyroxine Sodium (Synthroid) 50 mcg ACB PO 09/23/19 06:30 10/23/19 06:29 09/23/19 05:33 Pantoprazole Sodium (Protonix) 40 mg DAILY PO 09/23/19 09:00 10/23/19 08:59 09/23/19 08:42 Sotalol HCl (Betapace) 80 mg BID PO 09/22/19 21:00 10/22/19 20:59 09/23/19 08:42 Tamsulosin HCl (Flomax) 0.4 mg DAILY PO 09/23/19 09:00 10/23/19 08:59 09/23/19 08:42 Famotidine (Pepcid) 20 mg BID PO 09/22/19 21:00 10/22/19 20:59 09/23/19 08:42 Rivaroxaban (Xarelto) 20 mg HS PO 09/22/19 21:00 09/22/19 17:40 DC Atorvastatin Calcium (Lipitor) 20 mg HS PO 09/22/19 21:00 10/22/19 20:59 09/22/19 22:05 Tramadol HCl (Ultram) 50 mg Q6H PO 09/22/19 12:00 09/22/19 17:40 DC Tramadol HCl (Ultram) 100 mg Q6H PRN PO PAIN 7 - 10 09/22/19 12:00 09/22/19 17:40 DC Zolpidem Tartrate (Ambien) 5 mg HS PRN PO INSOMNIA 09/22/19 12:00 10/22/19 11:59 Docusate Sodium (Colace) 100 mg DAILY PO 09/23/19 09:00 10/23/19 08:59 09/23/19 08:42 Throat Lozenges (Cepacol Sore Throat Lozenge) 1 each PRN PRN MM SORE THROAT 09/22/19 12:00 10/22/19 11:59 Famotidine (Pepcid) 20 mg DAILY PO 09/23/19 09:00 09/22/19 20:47 DC Cefazolin Sodium/ Dextrose (Ancef 2 Gm/D5W 50ml) 2 gm Q8 IV 09/22/19 14:00 09/22/19 12:46 DC Tranexamic Acid (Tranexamic Acid) 1,000 mg STK-MED ONCE IV 09/22/19 12:16 09/22/19 12:17 DC Cefazolin Sodium 2 gm/Sodium Chloride 100 ml @ 100 mls/hr Q8 IV 09/22/19 14:00 09/23/19 06:59 DC 09/23/19 05:33 Hydromorphone HCl (Dilaudid) 0.2 mg Q5M PRN IV PAIN 1-3 09/22/19 14:00 09/22/19 20:46 DC Fentanyl Citrate (Sublimaze) 25 mcg Q5MIN PRN IV PAIN 09/22/19 14:00 09/22/19 20:48 DC Ondansetron HCl (Zofran 4 Mg/2 ml Vial) 4 mg OT ONCE IV 09/22/19 14:00 09/22/19 14:01 DC 09/22/19 17:56 Promethazine HCl (Phenergan) 6.25 mg PRN PRN IV NAUSEA / VOMITING 09/22/19 14:00 09/22/19 20:47 DC Labetalol HCl (Trandate) 5 mg Q5MIN PRN IV HYPERTENSION 09/22/19 14:00 09/22/19 20:47 DC Hydralazine HCl (Apresoline) 5 mg Q5MIN PRN IV HYPERTENSION 09/22/19 14:00 09/22/19 20:45 DC Sodium Chloride (Sodium Chloride) 1,000 ml STK-MED ONCE IR 09/22/19 13:52 09/22/19 13:53 DC Sterile Water (Water) 1,000 ml STK-MED ONCE .ROUTE 09/22/19 13:52 09/22/19 13:53 DC Sodium Chloride 100 ml @ ud STK-MED ONCE IV 09/22/19 13:52 09/22/19 13:53 DC Sodium Chloride 250 ml @ ud STK-MED ONCE IV 09/22/19 13:52 09/22/19 13:54 DC Sodium Chloride (NS 3000ml Irr) 3,000 ml STK-MED ONCE IR 09/22/19 13:52 09/22/19 13:54 DC Rivaroxaban (Xarelto) 20 mg HS PO 09/23/19 18:00 10/23/19 17:59 Tramadol HCl (Ultram) 50 mg Q4HR PO 09/22/19 18:00 10/22/19 11:59 09/22/19 22:04 Tramadol HCl (Ultram) 100 mg Q4HR PRN PO PAIN MODERATE 09/22/19 18:00 10/22/19 11:59 Hydromorphone HCl (Dilaudid) 2 mg Q4H PRN IV PAIN 7 - 10 09/22/19 18:00 10/22/19 17:59 Ephedrine Sulfate (Ephedrine Sulfate) 50 mg STK-MED ONCE .ROUTE 09/22/19 17:38 09/22/19 17:40 DC Ondansetron HCl (Zofran 4 Mg/2 ml Vial) 4 mg STK-MED ONCE .ROUTE 09/22/19 17:54 09/22/19 17:56 DC Famotidine (Pepcid) 20 mg STK-MED ONCE IV 09/22/19 18:01 09/22/19 18:03 DC Famotidine (Pepcid) 20 mg STAT STAT IV 09/22/19 18:03 09/22/19 20:44 DC 09/22/19 18:12 Metoclopramide HCl (Reglan) 10 mg STAT STAT IV 09/22/19 18:04 09/22/19 20:44 DC 09/22/19 18:12 Course Sepsis Screening Results: Posi: NEGATIVE Sepsis Qualifier/Stage: NO DEFINITE RISK Vitals & review Data Vital Sign - Last 24 Hours 09/22/19 09/22/19 09/22/19 09/22/19 11:44 11:44 13:07 13:17 Temp 97.0 Pulse 54 51 52 Resp 16 16 16 B/P (MAP) 155/99 (117) 125/84 (98) 140/67 (91) Pulse Ox 97 97 94 O2 Delivery Room Air Room Air Room Air Room Air 09/22/19 09/22/19 09/22/19 09/22/19 13:28 17:25 17:25 17:35 Temp 97.1 97.1 Pulse 55 76 69 Resp 16 16 16 B/P (MAP) 113/83 (93) 136/79 (98) 135/83 (100) Pulse Ox 98 97 96 O2 Delivery Room Air Non-Rebreather Non-Rebreather O2 Flow Rate 15 15 15 09/22/19 09/22/19 09/22/19 09/22/19 17:45 17:55 18:05 18:15 Temp 97.1 97.1 97.1 97.1 Pulse 65 67 70 70 Resp 16 16 16 16 B/P (MAP) 141/90 (107) 135/81 (99) 128/92 (104) 134/90 (105) Pulse Ox 97 97 94 96 O2 Delivery Non-Rebreather Nasal [place] Nasal Can[place] Nasal Canula O2 Flow Rate 15 3 3 3 09/22/19 09/22/19 09/22/19 09/22/19 18:25 20:00 20:38 21:00 Temp 97.1 97.7 97.7 Pulse 73 74 77 Resp 16 18 16 B/P (MAP) 148/78 (101) 137/68 (91) 126/70 (88) Pulse Ox 96 O2 Delivery Nasal [place] Nasal [place] Nasal Cannula Nasal Canula O2 Flow Rate 32 2.00 2.00 2.00 09/23/19 09/23/19 09/23/19 09/23/19 00:00 04:42 07:52 08:34 Temp 97.7 97.2 97.3 Pulse 68 66 69 69 Resp 16 18 18 18 B/P (MAP) 112/64 (80) 123/90 (101) 112/74 (87) Pulse Ox 92 96 O2 Delivery Nasal [place] Nasal [place] Nasal [place] Nasal Cannula O2 Flow Rate 2.00 2.00 2.00 1.50 FiO2 26 09/23/19 08:36 Resp 18 Pulse Ox 96 Intake and Output 09/22/19 09/22/19 09/23/19 15:00 23:00 07:00 Intake Total 200 ml 2400 ml 200 ml Output Total 190 ml 800 ml Balance 200 ml 2210 ml -600 ml Laboratory Tests Test 09/22/19 17:29 09/23/19 04:45 Bedside Glucose 164 White Blood Count 13.1 10^3/uL Red Blood Count 3.75 10^6/uL Hemoglobin 12.8 g/dL Hematocrit 38.4 % Mean Corpuscular Volume 102.4 fL Mean Corpuscular Hemoglobin 34.1 pg Mean Corpuscular Hemoglobin Concent 33.3 g/dL Red Cell Distribution Width 13.5 % Platelet Count 219 10^3/uL Mean Platelet Volume 10.3 fL Sodium Level 138 mmol/L Potassium Level 4.5 mmol/L Chloride Level 103.0 mmol/L Carbon Dioxide Level 26.5 mmol/L Glucose Level 209 mg/dL Blood Urea Nitrogen 17 mg/dL Creatinine 1.34 mg/dL Calcium Level 8.5 mg/dL Anion Gap 13.0 Estimated GFR () 62.5 BUN/Creatinine Ratio 12.0 Current Medications Medications (Trade) Dose Ordered Sig/Eli PRN Reason Start Time Stop Time Status Last Admin Acetaminophen (Tylenol) 1,000 mg Q6H 09/22/19 11:30 10/22/19 11:29 Atorvastatin Calcium (Lipitor) 20 mg HS 09/22/19 21:00 10/22/19 20:59 09/22/19 22:05 Docusate Sodium (Colace) 100 mg DAILY 09/23/19 09:00 10/23/19 08:59 09/23/19 08:42 Famotidine (Pepcid) 20 mg BID 09/22/19 21:00 10/22/19 20:59 09/23/19 08:42 Gabapentin (Neurontin) 300 mg BID 09/22/19 21:00 10/22/19 20:59 09/23/19 08:42 Gabapentin (Neurontin) 400 mg Q24HRS 09/23/19 11:30 09/23/19 11:31 Hydromorphone HCl (Dilaudid) 2 mg Q4H PRN PAIN 7 - 10 09/22/19 18:00 10/22/19 17:59 Levothyroxine Sodium (Synthroid) 50 mcg ACB 09/23/19 06:30 10/23/19 06:29 09/23/19 05:33 Pantoprazole Sodium (Protonix) 40 mg DAILY 09/23/19 09:00 10/23/19 08:59 09/23/19 08:42 Rivaroxaban (Xarelto) 20 mg HS 09/23/19 18:00 10/23/19 17:59 Sotalol HCl (Betapace) 80 mg BID 09/22/19 21:00 10/22/19 20:59 09/23/19 08:42 Tamsulosin HCl (Flomax) 0.4 mg DAILY 09/23/19 09:00 10/23/19 08:59 09/23/19 08:42 Throat Lozenges (Cepacol Sore Throat Lozenge) 1 each PRN PRN SORE THROAT 09/22/19 12:00 10/22/19 11:59 Tramadol HCl (Ultram) 50 mg Q4HR 09/22/19 18:00 10/22/19 11:59 09/22/19 22:04 Tramadol HCl (Ultram) 100 mg Q4HR PRN PAIN MODERATE 09/22/19 18:00 10/22/19 11:59 Zolpidem Tartrate (Ambien) 5 mg HS PRN INSOMNIA 09/22/19 12:00 10/22/19 11:59 LEVEL 1 SEPSIS INFECTION CRITE: ABX Therapy LEVEL 2-SIRS (LIST ALL THAT AP: [id number], None/Not assessed Cardiovascular Evidence: Not Assessed or None Hematologic Evidence: None/Not assessed Hepatic Evidence: None/Not assessed Metabolic Evidence: None/Not assessed Neurological Evidence: None/Not assessed Respiratory Evidence: None/Not assessed Renal Evidence: None/Not assessed O2 Sat by Pulse Oximetry: 93 Oxygen Flow Rate: 1.00 ZIGGY AGEE MD Sep 24, 2019 08:46
[2019-09-24 09:00] VITALS: BP 125/67
[2019-09-24] MEDS: FLOMAX PO SCH (09:23)
[2019-09-24] MEDS: COLACE PO SCH (09:24)
[2019-09-24] MEDS: NEURONTIN PO SCH ×2 (09:24→21:12)
[2019-09-24] MEDS: PEPCID PO SCH ×2 (09:24→21:13)
[2019-09-24] MEDS: BETAPACE PO SCH ×2 (09:24→21:13)
[2019-09-24] MEDS: PROTONIX PO SCH (09:24)
--- NOTE | 2019-09-24 09:48 | PRM.PN ---
Subjective Subjective Date: Sep 24, 2019 Time: 09:40 Subjective Patient complaining of dizziness this AM. Patient labs reviewed. Patient Hg dropped wnl. Vitals reviewed. I discussed with Dr. Cornejo. We will restart IVF. Paged later by RN with periods of tachycardia on telemetry with rate above 100. EKG ordered and showed Afib/flutter 4:1 with rate of 70. This is chronic condition. Patient is asymptomatic and dizziness has resolved. Patient did become hypoxic during ambulation and RN notified me. Patient likely has underlying COPD that has never been diagnosed. I discussed with patient/daughter. Patient will have O2 challenge in AM. Patient History: Cerebrovascular disorder G8 BROTHER, , Age:91 Congestive heart failure G8 BROTHER, , Age:59 Diabetes mellitus 33 FATHER, , Age:86 No known health problems G8 SISTER G8 SISTER V19 CHILD V19 CHILD V19 CHILD Parkinson's disease G8 BROTHER, , Age:81 No Family History of: Alzheimer's disease Asthma Chronic obstructive pulmonary disease Diabetes insipidus Hypertension VTE VTE Risk Total Score: 5 VTE Risk Score VTE Risk: Score 0-1 = Low Risk (Aggressive mobilization; early ambulation; no VTE prophylaxis required) Score 2: Moderate Risk (Intermittent/Pneumatic Compression Device OR Lovenox/Heparin/Coumadin) Score 3-4: High Risk (Intermittent/Pneumatic Compression Device AND Lovenox/Heparin/Coumadin) Score > or =5: Highest Risk (Intermittent/Pneumatic Compression Device AND Lovenox/Heparin/Coumadin) Review of Systems Allergies: Coded Allergies: No Known Allergies (Unverified , 09/17/19) Scheduled Gabapentin (Gabapentin), 1 CAP PO BID, (Reported) Levothyroxine Sodium (Levothyroxine Sodium), 1 TAB PO DAILY, (Reported) Pantoprazole Sodium (Pantoprazole Sodium), 1 TAB PO DAILY, (Reported) Ranitidine Hcl (Ranitidine Hcl), 1 TAB PO BID, (Reported) Rivaroxaban (Xarelto), 1 TAB PO HS, (Reported) Rosuvastatin 5MG (Crestor 5MG), 1 TAB PO DAILY, (Reported) Sotalol Hcl (Sotalol), 1 TAB PO BID, (Reported) Tamsulosin Hcl (Flomax), 1 CAP PO DAILY, (Reported) Objective Vitals and I/O Vital Sign - Last 24 Hours 09/22/19 09/22/19 09/22/19 09/22/19 11:44 11:44 13:07 13:17 Temp 97.0 Pulse 54 51 52 Resp 16 16 16 B/P (MAP) 155/99 (117) 125/84 (98) 140/67 (91) Pulse Ox 97 97 94 O2 Delivery Room Air Room Air Room Air Room Air 09/22/19 09/22/19 09/22/19 09/22/19 13:28 17:25 17:25 17:35 Temp 97.1 97.1 Pulse 55 76 69 Resp 16 16 16 B/P (MAP) 113/83 (93) 136/79 (98) 135/83 (100) Pulse Ox 98 97 96 O2 Delivery Room Air Non-Rebreather Non-Rebreather O2 Flow Rate 15 15 15 09/22/19 09/22/19 09/22/19 09/22/19 17:45 17:55 18:05 18:15 Temp 97.1 97.1 97.1 97.1 Pulse 65 67 70 70 Resp 16 16 16 16 B/P (MAP) 141/90 (107) 135/81 (99) 128/92 (104) 134/90 (105) Pulse Ox 97 97 94 96 O2 Delivery Non-Rebreather Nasal Canula Nasal Canula Nasal Canula O2 Flow Rate 15 3 3 3 09/22/19 09/22/19 09/22/19 09/22/19 18:25 20:00 20:38 21:00 Temp 97.1 97.7 97.7 Pulse 73 74 77 Resp 16 18 16 B/P (MAP) 148/78 (101) 137/68 (91) 126/70 (88) Pulse Ox 96 O2 Delivery Nasal Canula Nasal Canula Nasal Cannula Nasal Canula O2 Flow Rate 32 2.00 2.00 2.00 09/23/19 09/23/19 09/23/19 09/23/19 00:00 04:42 07:52 08:34 Temp 97.7 97.2 97.3 Pulse 68 66 69 69 Resp 16 18 18 18 B/P (MAP) 112/64 (80) 123/90 (101) 112/74 (87) Pulse Ox 92 96 O2 Delivery Nasal Canula Nasal Canula Nasal Canula Nasal Cannula O2 Flow Rate 2.00 2.00 2.00 1.50 FiO2 26 09/23/19 08:36 Resp 18 Pulse Ox 96 Intake and Output 09/22/19 09/22/19 09/23/19 15:00 23:00 07:00 Intake Total 200 ml 2400 ml 200 ml Output Total 190 ml 800 ml Balance 200 ml 2210 ml -600 ml General: Alert, Oriented X3, Cooperative, No acute distress HEENT: Atraumatic, PERRLA, EOMI, Mucous membr. moist/pink Neck: Supple, No JVD Lungs: Clear to auscultation, Normal air movement Heart: Normal S1, Normal S2, No murmurs Abdomen: Normal bowel sounds, Soft, No tenderness Extremities: No edema, Normal pulses, No tenderness/swelling Skin: No rashes, No breakdown, No significant lesion Neuro: Normal speech, Strength at 5/5 X4 ext, Normal tone, Sensation intact, Cr anial nerves 3-12 NL Psych/Mental Status: Mental status NL, Mood NL All Results(Lab/Rad) Laboratory Tests Test 09/22/19 17:29 09/23/19 04:45 Bedside Glucose 164 White Blood Count 13.1 10^3/uL Red Blood Count 3.75 10^6/uL Hemoglobin 12.8 g/dL Hematocrit 38.4 % Mean Corpuscular Volume 102.4 fL Mean Corpuscular Hemoglobin 34.1 pg Mean Corpuscular Hemoglobin Concent 33.3 g/dL Red Cell Distribution Width 13.5 % Platelet Count 219 10^3/uL Mean Platelet Volume 10.3 fL Sodium Level 138 mmol/L Potassium Level 4.5 mmol/L Chloride Level 103.0 mmol/L Carbon Dioxide Level 26.5 mmol/L Glucose Level 209 mg/dL Blood Urea Nitrogen 17 mg/dL Creatinine 1.34 mg/dL Calcium Level 8.5 mg/dL Anion Gap 13.0 Estimated GFR () 62.5 BUN/Creatinine Ratio 12.0 Current Medications Medications (Trade) Dose Ordered Sig/Eli Route PRN Reason Start Time Stop Time Status Last Admin Dose Admin Mupirocin (Bactroban Ointment) 1 gm OT ONCE TP 09/22/19 06:00 09/22/19 12:35 DC 09/22/19 12:28 Sodium Chloride 100 ml @ ud STK-MED ONCE IV 09/22/19 05:30 09/22/19 05:32 DC Cefazolin Sodium (Ancef) 1 gm STK-MED ONCE .ROUTE 09/22/19 05:30 09/22/19 05:32 DC Neostigmine Methylsulfate (Neostigmine) 10 mg STK-MED ONCE .ROUTE 09/22/19 11:04 09/22/19 11:05 DC Ondansetron HCl (Zofran 4 Mg/2 ml Vial) 4 mg STK-MED ONCE .ROUTE 09/22/19 11:04 09/22/19 11:05 DC Rocuronium [place] (Zemuron) 100 mg STK-MED ONCE IV 09/22/19 11:04 09/22/19 11:06 DC Hydromorphone HCl (Dilaudid) 2 mg STK-MED ONCE .ROUTE 09/22/19 11:05 09/22/19 11:06 DC Fentanyl Citrate (Sublimaze) 100 mcg STK-MED ONCE .ROUTE 09/22/19 11:05 09/22/19 11:06 DC Propofol (Diprivan) 200 mg STK-MED ONCE IV 09/22/19 11:05 09/22/19 11:06 DC Bupivacaine HCl (Sensorcaine 0.5% Vial) 5 mg STK-MED ONCE .ROUTE 09/22/19 11:06 09/22/19 11:07 DC Lidocaine HCl (Lidocaine 2% Vial) 500 mg STK-MED ONCE .ROUTE 09/22/19 11:06 09/22/19 11:08 DC Rocuronium [place] (Zemuron) 100 mg STK-MED ONCE IV 09/22/19 11:22 09/22/19 11:23 DC Acetaminophen (Tylenol) 1,000 mg OT PO 09/22/19 11:30 09/22/19 12:38 DC 09/22/19 12:29 Gabapentin (Neurontin) 400 mg OT PO 09/22/19 11:30 09/22/19 12:36 DC 09/22/19 12:29 Acetaminophen (Tylenol) 1,000 mg Q6H PO 09/22/19 11:30 10/22/19 11:29 Gabapentin (Neurontin) 400 mg Q24HRS PO 09/23/19 11:30 09/23/19 11:31 Gabapentin (Neurontin) 300 mg BID PO 09/22/19 21:00 10/22/19 20:59 09/23/19 08:42 Levothyroxine Sodium (Synthroid) 50 mcg ACB PO 09/23/19 06:30 10/23/19 06:29 09/23/19 05:33 Pantoprazole Sodium (Protonix) 40 mg DAILY PO 09/23/19 09:00 10/23/19 08:59 09/23/19 08:42 Sotalol HCl (Betapace) 80 mg BID PO 09/22/19 21:00 10/22/19 20:59 09/23/19 08:42 Tamsulosin HCl (Flomax) 0.4 mg DAILY PO 09/23/19 09:00 10/23/19 08:59 09/23/19 08:42 Famotidine (Pepcid) 20 mg BID PO 09/22/19 21:00 10/22/19 20:59 09/23/19 08:42 Rivaroxaban (Xarelto) 20 mg HS PO 09/22/19 21:00 09/22/19 17:40 DC Atorvastatin Calcium (Lipitor) 20 mg HS PO 09/22/19 21:00 10/22/19 20:59 09/22/19 22:05 Tramadol HCl (Ultram) 50 mg Q6H PO 09/22/19 12:00 09/22/19 17:40 DC Tramadol HCl (Ultram) 100 mg Q6H PRN PO PAIN 7 - 10 09/22/19 12:00 09/22/19 17:40 DC Zolpidem Tartrate (Ambien) 5 mg HS PRN PO INSOMNIA 09/22/19 12:00 10/22/19 11:59 Docusate Sodium (Colace) 100 mg DAILY PO 09/23/19 09:00 10/23/19 08:59 09/23/19 08:42 Throat Lozenges (Cepacol Sore Throat Lozenge) 1 each PRN PRN MM SORE THROAT 09/22/19 12:00 10/22/19 11:59 Famotidine (Pepcid) 20 mg DAILY PO 09/23/19 09:00 09/22/19 20:47 DC Cefazolin Sodium/ Dextrose (Ancef 2 Gm/D5W 50ml) 2 gm Q8 IV 09/22/19 14:00 09/22/19 12:46 DC Tranexamic Acid (Tranexamic Acid) 1,000 mg STK-MED ONCE IV 09/22/19 12:16 09/22/19 12:17 DC Cefazolin Sodium 2 gm/Sodium Chloride 100 ml @ 100 mls/hr Q8 IV 09/22/19 14:00 09/23/19 06:59 DC 09/23/19 05:33 Hydromorphone HCl (Dilaudid) 0.2 mg Q5M PRN IV PAIN 1-3 09/22/19 14:00 09/22/19 20:46 DC Fentanyl Citrate (Sublimaze) 25 mcg Q5MIN PRN IV PAIN 09/22/19 14:00 09/22/19 20:48 DC Ondansetron HCl (Zofran 4 Mg/2 ml Vial) 4 mg OT ONCE IV 09/22/19 14:00 09/22/19 14:01 DC 09/22/19 17:56 Promethazine HCl (Phenergan) 6.25 mg PRN PRN IV NAUSEA / VOMITING 09/22/19 14:00 09/22/19 20:47 DC Labetalol HCl (Trandate) 5 mg Q5MIN PRN IV HYPERTENSION 09/22/19 14:00 09/22/19 20:47 DC Hydralazine HCl (Apresoline) 5 mg Q5MIN PRN IV HYPERTENSION 09/22/19 14:00 09/22/19 20:45 DC Sodium Chloride (Sodium Chloride) 1,000 ml STK-MED ONCE IR 09/22/19 13:52 09/22/19 13:53 DC Sterile Water (Water) 1,000 ml STK-MED ONCE .ROUTE 09/22/19 13:52 09/22/19 13:53 DC Sodium Chloride 100 ml @ ud STK-MED ONCE IV 09/22/19 13:52 09/22/19 13:53 DC Sodium Chloride 250 ml @ ud STK-MED ONCE IV 09/22/19 13:52 09/22/19 13:54 DC Sodium Chloride (NS 3000ml Irr) 3,000 ml STK-MED ONCE IR 09/22/19 13:52 09/22/19 13:54 DC Rivaroxaban (Xarelto) 20 mg HS PO 09/23/19 18:00 10/23/19 17:59 Tramadol HCl (Ultram) 50 mg Q4HR PO 09/22/19 18:00 10/22/19 11:59 09/22/19 22:04 Tramadol HCl (Ultram) 100 mg Q4HR PRN PO PAIN MODERATE 09/22/19 18:00 10/22/19 11:59 Hydromorphone HCl (Dilaudid) 2 mg Q4H PRN IV PAIN 7 - 10 09/22/19 18:00 10/22/19 17:59 Ephedrine Sulfate (Ephedrine Sulfate) 50 mg STK-MED ONCE .ROUTE 09/22/19 17:38 09/22/19 17:40 DC Ondansetron HCl (Zofran 4 Mg/2 ml Vial) 4 mg STK-MED ONCE .ROUTE 09/22/19 17:54 09/22/19 17:56 DC Famotidine (Pepcid) 20 mg STK-MED ONCE IV 09/22/19 18:01 09/22/19 18:03 DC Famotidine (Pepcid) 20 mg STAT STAT IV 09/22/19 18:03 09/22/19 20:44 DC 09/22/19 18:12 Metoclopramide HCl (Reglan) 10 mg STAT STAT IV 09/22/19 18:04 09/22/19 20:44 DC 09/22/19 18:12 Course Sepsis Screening Results: Posi: NEGATIVE Sepsis Qualifier/Stage: NO DEFINITE RISK Vitals & review Data Vital Sign - Last 24 Hours 09/22/19 09/22/19 09/22/19 09/22/19 11:44 11:44 13:07 13:17 Temp 97.0 Pulse 54 51 52 Resp 16 16 16 B/P (MAP) 155/99 (117) 125/84 (98) 140/67 (91) Pulse Ox 97 97 94 O2 Delivery Room Air Room Air Room Air Room Air 09/22/19 09/22/19 09/22/19 09/22/19 13:28 17:25 17:25 17:35 Temp 97.1 97.1 Pulse 55 76 69 Resp 16 16 16 B/P (MAP) 113/83 (93) 136/79 (98) 135/83 (100) Pulse Ox 98 97 96 O2 Delivery Room Air Non-Rebreather Non-Rebreather O2 Flow Rate 15 15 15 09/22/19 09/22/19 09/22/19 09/22/19 17:45 17:55 18:05 18:15 Temp 97.1 97.1 97.1 97.1 Pulse 65 67 70 70 Resp 16 16 16 16 B/P (MAP) 141/90 (107) 135/81 (99) 128/92 (104) 134/90 (105) Pulse Ox 97 97 94 96 O2 Delivery Non-Rebreather Nasal [place] Nasal Canula Nasal Canula O2 Flow Rate 15 3 3 3 09/22/19 09/22/19 09/22/19 09/22/19 18:25 20:00 20:38 21:00 Temp 97.1 97.7 97.7 Pulse 73 74 77 Resp 16 18 16 B/P (MAP) 148/78 (101) 137/68 (91) 126/70 (88) Pulse Ox 96 O2 Delivery Nasal [place] Nasal Can[place] Nasal Cannula Nasal Canula O2 Flow Rate 32 2.00 2.00 2.00 09/23/19 09/23/19 09/23/19 09/23/19 00:00 04:42 07:52 08:34 Temp 97.7 97.2 97.3 Pulse 68 66 69 69 Resp 16 18 18 18 B/P (MAP) 112/64 (80) 123/90 (101) 112/74 (87) Pulse Ox 92 96 O2 Delivery Nasal [place] Nasal [place] Nasal Can[place] Nasal Cannula O2 Flow Rate 2.00 2.00 2.00 1.50 FiO2 26 09/23/19 08:36 Resp 18 Pulse Ox 96 Intake and Output 09/22/19 09/22/19 09/23/19 15:00 23:00 07:00 Intake Total 200 ml 2400 ml 200 ml Output Total 190 ml 800 ml Balance 200 ml 2210 ml -600 ml Laboratory Tests Test 09/22/19 17:29 09/23/19 04:45 Bedside Glucose 164 White Blood Count 13.1 10^3/uL Red Blood Count 3.75 10^6/uL Hemoglobin 12.8 g/dL Hematocrit 38.4 % Mean Corpuscular Volume 102.4 fL Mean Corpuscular Hemoglobin 34.1 pg Mean Corpuscular Hemoglobin Concent 33.3 g/dL Red Cell Distribution Width 13.5 % Platelet Count 219 10^3/uL Mean Platelet Volume 10.3 fL Sodium Level 138 mmol/L Potassium Level 4.5 mmol/L Chloride Level 103.0 mmol/L Carbon Dioxide Level 26.5 mmol/L Glucose Level 209 mg/dL Blood Urea Nitrogen 17 mg/dL Creatinine 1.34 mg/dL Calcium Level 8.5 mg/dL Anion Gap 13.0 Estimated GFR () 62.5 BUN/Creatinine Ratio 12.0 Current Medications Medications (Trade) Dose Ordered Sig/Eli PRN Reason Start Time Stop Time Status Last Admin Acetaminophen (Tylenol) 1,000 mg Q6H 09/22/19 11:30 10/22/19 11:29 Atorvastatin Calcium (Lipitor) 20 mg HS 09/22/19 21:00 10/22/19 20:59 09/22/19 22:05 Docusate Sodium (Colace) 100 mg DAILY 09/23/19 09:00 10/23/19 08:59 09/23/19 08:42 Famotidine (Pepcid) 20 mg BID 09/22/19 21:00 10/22/19 20:59 09/23/19 08:42 Gabapentin (Neurontin) 300 mg BID 09/22/19 21:00 10/22/19 20:59 09/23/19 08:42 Gabapentin (Neurontin) 400 mg Q24HRS 09/23/19 11:30 09/23/19 11:31 Hydromorphone HCl (Dilaudid) 2 mg Q4H PRN PAIN 7 - 10 09/22/19 18:00 10/22/19 17:59 Levothyroxine Sodium (Synthroid) 50 mcg ACB 09/23/19 06:30 10/23/19 06:29 09/23/19 05:33 Pantoprazole Sodium (Protonix) 40 mg DAILY 09/23/19 09:00 10/23/19 08:59 09/23/19 08:42 Rivaroxaban (Xarelto) 20 mg HS 09/23/19 18:00 10/23/19 17:59 Sotalol HCl (Betapace) 80 mg BID 09/22/19 21:00 10/22/19 20:59 09/23/19 08:42 Tamsulosin HCl (Flomax) 0.4 mg DAILY 09/23/19 09:00 10/23/19 08:59 09/23/19 08:42 Throat Lozenges (Cepacol Sore Throat Lozenge) 1 each PRN PRN SORE THROAT 09/22/19 12:00 10/22/19 11:59 Tramadol HCl (Ultram) 50 mg Q4HR 09/22/19 18:00 10/22/19 11:59 09/22/19 22:04 Tramadol HCl (Ultram) 100 mg Q4HR PRN PAIN MODERATE 09/22/19 18:00 10/22/19 11:59 Zolpidem Tartrate (Ambien) 5 mg HS PRN INSOMNIA 09/22/19 12:00 10/22/19 11:59 LEVEL 1 SEPSIS INFECTION CRITE: ABX Therapy LEVEL 2-SIRS (LIST ALL THAT AP: WBC>[id number], None/Not assessed Cardiovascular Evidence: Not Assessed or None Hematologic Evidence: None/Not assessed Hepatic Evidence: None/Not assessed Metabolic Evidence: None/Not assessed Neurological Evidence: None/Not assessed Respiratory Evidence: None/Not assessed Renal Evidence: None/Not assessed O2 Sat by Pulse Oximetry: 93 Oxygen Flow Rate: 1.00 Assessment/Plan Assessment/Plan Assessment/Plan 1. 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 Cont pain control. cont PT eval/treat. 2. Afib: cont Xarelto, Betapace for rate control. 3. BPH: cont Tamsulosin 4. Hypothyroidism: cont Synthroid 5. DM: Patient states that PCP d/c Oral Hypoglycemics. A1C @ goal for age group without medications. We will cover with SSI while in hospital. F/U outpatient for further treatment recs. 6. PPx: Xarelto, Pepcid 7. Dizziness: likely 2/2 Hypotension. Patient IVF restarted, encourage improved PO intake. Will cont Tamsulosin, Betapace. Monitor vitals closely. Repeat CBC @ 1500. 8. KRISTEN: restart IVF, recheck metabolic panel in AM. 9. COPD/Hypoxia: patient has underlying COPD, patient hypoxic with ambulation to mid 80s today. We will complete O2 challenge tomorrow prior to d/c and attempt to qualify for Home O2. OMI BORJA MD Sep 24, 2019 09:48
[2019-09-24 14:53] LABS: BASOPHIL % 0.2 % (0.0-0.2); EOSINOPHIL # 0.1 10^3/uL (0.0-0.2); EOSINOPHIL % 1.1 % (0.0-5.0); HEMOGLOBIN 11.9 g/dL (13.9-16.3); LYMPHOCYTES # 1.3 10^3/uL (1.0-4.8); LYMPHOCYTES % 13.6 % (24.0-44.0); MEAN CELL HGB 33.2 pg (26-34); MEAN CELL HGB CONCENTRATION 32.1 g/dL (33-37); MEAN CORP VOLUME 103.6 fL (78-100); MEAN PLATELET VOLUME 10.2 fL (7.8-11.0); MONOCYTES # 1.2 10^3/uL (0.3-0.8); MONOCYTES % 12.3 % (5.0-12.0); NEUTROPHIL # 6.9 10^3/uL (1.8-7.7); NEUTROPHILS % 72.6 % (41.0-85.0); WHITE BLOOD CELL 9.6 10^3/uL (4.5-11.0)
--- NOTE | 2019-09-24 15:03 | PCM.EKG ---
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
[2019-09-24 16:45] VITALS: BP 110/71
[2019-09-24 19:57] VITALS: BP 92/60
[2019-09-24] MEDS: LIPITOR PO SCH (21:12)
[2019-09-24] MEDS: XARELTO PO SCH (21:13)
[2019-09-25] VITALS (8 sets, daily range): BP systolic 100–119; BP diastolic 60–80
[2019-09-25] MEDS: ULTRAM PO SCH ×6 (03:48→21:41)
[2019-09-25 05:19] LABS: BASOPHIL % 0.3 % (0.0-0.2); EOSINOPHIL # 0.2 10^3/uL (0.0-0.2); EOSINOPHIL % 2.4 % (0.0-5.0); HEMOGLOBIN 10.3 g/dL (13.9-16.3); LYMPHOCYTES # 1.3 10^3/uL (1.0-4.8); LYMPHOCYTES % 17.1 % (24.0-44.0); MEAN CELL HGB 34.1 pg (26-34); MEAN CELL HGB CONCENTRATION 32.7 g/dL (33-37); MEAN CORP VOLUME 104.3 fL (78-100); MEAN PLATELET VOLUME 10.6 fL (7.8-11.0); MONOCYTES # 0.9 10^3/uL (0.3-0.8); MONOCYTES % 11.7 % (5.0-12.0); NEUTROPHIL # 5.2 10^3/uL (1.8-7.7); NEUTROPHILS % 68.2 % (41.0-85.0); RED CELL DISTRIBUTION WIDTH 13.9 % (11.5-14.5); WHITE BLOOD CELL 7.6 10^3/uL (4.5-11.0)
[2019-09-25 05:32] LABS: CALCIUM 8.4 mg/dL (8.4-10.5); CARBON DIOXIDE 30.7 mmol/L (20.0-32)
[2019-09-25] MEDS: TYLENOL PO SCH (05:57)
[2019-09-25] MEDS: SYNTHROID PO SCH (05:57)
[2019-09-25] MEDS: HUMULIN R SQ SCH ×4 (07:30→21:00)
[2019-09-25] MEDS: FLOMAX PO SCH (08:27)
[2019-09-25] MEDS: NEURONTIN PO SCH ×2 (08:27→21:42)
[2019-09-25] MEDS: PEPCID PO SCH ×2 (08:28→21:41)
[2019-09-25] MEDS: BETAPACE PO SCH ×2 (08:28→21:41)
[2019-09-25] MEDS: PROTONIX PO SCH (08:28)
[2019-09-25] MEDS: COLACE PO SCH (08:28)
--- NOTE | 2019-09-25 08:42 | DIREP ---
PROCEDURE:CHEST 1 VIEW COMPARISON:Chest one view, 12/09/2015, BSA. INDICATIONS:hypoxia FINDINGS: LUNGS/PLEURA:No significant pulmonary parenchymal abnormalities. No effusions. VASCULATURE:Normal. Unremarkable pulmonary vasculature. CARDIAC:Borderline to mild cardiomegaly. MEDIASTINUM:Normal. No visible mass or adenopathy. BONES:No acute pathology. OTHER:Negative. CONCLUSION:Borderline to mild cardiomegaly. No pulmonary edema, airspace consolidation or pleural effusion. Dictated by: Desmond Ziegler M.D. on 09/25/2019 at 08:34 AM
[2019-09-25] MEDS ORDERED: TRAM50TA PO (08:55)
--- NOTE | 2019-09-25 09:01 | NUR ---
DISCHARGE PICTURES NOT TAKEN DUE TO PREVENA WOUND VAC BEING IN PLACE OBSTRUCTING THE VIEW. ORDERS IN PLACE NOT TO REMOVE DRESSING UNTIL FOLLOW-UP WITH DR. AGEE.
--- NOTE | 2019-09-25 09:02 | PRM.DC ---
Discharge Summary Date of Discharge: Sep 25, 2019 Time of Request to Discharge: 08:55 Reason for Visit: S/P Left Hip Replacement Additional Comments patient sitting in bed, no pain walked hallway yesterday with no concerns dizziness improved hemoglobin 10.1- post op anemia expected after surgical procedure Patient History: Cerebrovascular disorder G8 BROTHER, , Age:91 Congestive heart failure G8 BROTHER, , Age:59 Diabetes mellitus 33 FATHER, , Age:86 No known health problems G8 SISTER G8 SISTER V19 CHILD V19 CHILD V19 CHILD Parkinson's disease G8 BROTHER, , Age:81 No Family History of: Alzheimer's disease Asthma Chronic obstructive pulmonary disease Diabetes insipidus Hypertension General: Alert, Oriented X3, Cooperative, No acute distress HEENT: Atraumatic, PERRLA Neck: Supple Lungs: Clear to auscultation Heart: Regular rate Abdomen: Normal bowel sounds, Soft, No tenderness Extremities: No clubbing, No cyanosis, No edema Skin: No rashes, No breakdown Neuro: Normal gait, Normal speech Psych/Mental Status: Mental status NL, Mood NL Scheduled Gabapentin (Gabapentin), 1 CAP PO BID, (Reported) Levothyroxine Sodium (Levothyroxine Sodium), 1 TAB PO DAILY, (Reported) Pantoprazole Sodium (Pantoprazole Sodium), 1 TAB PO DAILY, (Reported) Ranitidine Hcl (Ranitidine Hcl), 1 TAB PO BID, (Reported) Rivaroxaban (Xarelto), 1 TAB PO HS, (Reported) Rosuvastatin 5MG (Crestor 5MG), 1 TAB PO DAILY, (Reported) Sotalol Hcl (Sotalol), 1 TAB PO BID, (Reported) Tamsulosin Hcl (Flomax), 1 CAP PO DAILY, (Reported) Scheduled PRN Tramadol Hcl (Tramadol Hcl), 50 MG PO Q4HR PRN for PAIN Sepsis Evaluation @ Discharge Vital Sign - Last 24 Hours 09/22/19 09/22/19 09/22/19 09/22/19 11:44 11:44 13:07 13:17 Temp 97.0 Pulse 54 51 52 Resp 16 16 16 B/P (MAP) 155/99 (117) 125/84 (98) 140/67 (91) Pulse Ox 97 97 94 O2 Delivery Room Air Room Air Room Air Room Air 1209/22/19 09/22/19 09/22/19 13:28 17:25 17:25 17:35 Temp 97.1 97.1 Pulse 55 76 69 Resp 16 16 16 B/P (MAP) 113/83 (93) 136/79 (98) 135/83 (100) Pulse Ox 98 97 96 O2 Delivery Room Air Non-Rebreather Non-Rebreather O2 Flow Rate 15 15 15 09/22/19 09/22/19 09/22/19 09/22/19 17:45 17:55 18:05 18:15 Temp 97.1 97.1 97.1 97.1 Pulse 65 67 70 70 Resp 16 16 16 16 B/P (MAP) 141/90 (107) 135/81 (99) 128/92 (104) 134/90 (105) Pulse Ox 97 97 94 96 O2 Delivery Non-Rebreather Nasal Canula Nasal Canula Nasal Canula O2 Flow Rate 15 3 3 3 09/22/19 09/22/19 09/22/19 09/22/19 18:25 20:00 20:38 21:00 Temp 97.1 97.7 97.7 Pulse 73 74 77 Resp 16 18 16 B/P (MAP) 148/78 (101) 137/68 (91) 126/70 (88) Pulse Ox 96 O2 Delivery Nasal Canula Nasal Canula Nasal Cannula Nasal Canula O2 Flow Rate 32 2.00 2.00 2.00 09/23/19 09/23/19 09/23/19 09/23/19 00:00 04:42 07:52 08:34 Temp 97.7 97.2 97.3 Pulse 68 66 69 69 Resp 16 18 18 18 B/P (MAP) 112/64 (80) 123/90 (101) 112/74 (87) Pulse Ox 92 96 O2 Delivery Nasal Canula Nasal Canula Nasal Canula Nasal Cannula O2 Flow Rate 2.00 2.00 2.00 1.50 FiO2 26 09/23/19 08:36 Resp 18 Pulse Ox 96 Intake and Output 09/22/19 09/22/19 09/23/19 15:00 23:00 07:00 Intake Total 200 ml 2400 ml 200 ml Output Total 190 ml 800 ml Balance 200 ml 2210 ml -600 ml Laboratory Tests Test 09/22/19 17:29 09/23/19 04:45 Bedside Glucose 164 White Blood Count 13.1 10^3/uL Red Blood Count 3.75 10^6/uL Hemoglobin 12.8 g/dL Hematocrit 38.4 % Mean Corpuscular Volume 102.4 fL Mean Corpuscular Hemoglobin 34.1 pg Mean Corpuscular Hemoglobin Concent 33.3 g/dL Red Cell Distribution Width 13.5 % Platelet Count 219 10^3/uL Mean Platelet Volume 10.3 fL Sodium Level 138 mmol/L Potassium Level 4.5 mmol/L Chloride Level 103.0 mmol/L Carbon Dioxide Level 26.5 mmol/L Glucose Level 209 mg/dL Blood Urea Nitrogen 17 mg/dL Creatinine 1.34 mg/dL Calcium Level 8.5 mg/dL Anion Gap 13.0 Estimated GFR () 62.5 BUN/Creatinine Ratio 12.0 Current Medications Medications (Trade) Dose Ordered Sig/Eli PRN Reason Start Time Stop Time Status Last Admin Acetaminophen (Tylenol) 1,000 mg Q6H 09/22/19 11:30 10/22/19 11:29 Atorvastatin Calcium (Lipitor) 20 mg HS 09/22/19 21:00 10/22/19 20:59 09/22/19 22:05 Docusate Sodium (Colace) 100 mg DAILY 09/23/19 09:00 10/23/19 08:59 09/23/19 08:42 Famotidine (Pepcid) 20 mg BID 09/22/19 21:00 10/22/19 20:59 09/23/19 08:42 Gabapentin (Neurontin) 300 mg BID 09/22/19 21:00 10/22/19 20:59 09/23/19 08:42 Gabapentin (Neurontin) 400 mg Q24HRS 09/23/19 11:30 09/23/19 11:31 Hydromorphone HCl (Dilaudid) 2 mg Q4H PRN PAIN 7 - 10 09/22/19 18:00 10/22/19 17:59 Levothyroxine Sodium (Synthroid) 50 mcg ACB 09/23/19 06:30 10/23/19 06:29 09/23/19 05:33 Pantoprazole Sodium (Protonix) 40 mg DAILY 09/23/19 09:00 10/23/19 08:59 09/23/19 08:42 Rivaroxaban (Xarelto) 20 mg HS 09/23/19 18:00 10/23/19 17:59 Sotalol HCl (Betapace) 80 mg BID 09/22/19 21:00 10/22/19 20:59 09/23/19 08:42 Tamsulosin HCl (Flomax) 0.4 mg DAILY 09/23/19 09:00 10/23/19 08:59 09/23/19 08:42 Throat Lozenges (Cepacol Sore Throat Lozenge) 1 each PRN PRN SORE THROAT 09/22/19 12:00 10/22/19 11:59 Tramadol HCl (Ultram) 50 mg Q4HR 09/22/19 18:00 10/22/19 11:59 09/22/19 22:04 Tramadol HCl (Ultram) 100 mg Q4HR PRN PAIN MODERATE 09/22/19 18:00 10/22/19 11:59 Zolpidem Tartrate (Ambien) 5 mg HS PRN INSOMNIA 09/22/19 12:00 10/22/19 11:59 Course Sepsis Screening Results: Posi: POSITIVE Sepsis Qualifier/Stage: SEPSIS RISK Vitals & review Data Vital Sign - Last 24 Hours 09/22/19 09/22/19 09/22/19 09/22/19 11:44 11:44 13:07 13:17 Temp 97.0 Pulse 54 51 52 Resp 16 16 16 B/P (MAP) 155/99 (117) 125/84 (98) 140/67 (91) Pulse Ox 97 97 94 O2 Delivery Room Air Room Air Room Air Room Air 09/22/19 09/22/19 09/22/19 09/22/19 13:28 17:25 17:25 17:35 Temp 97.1 97.1 Pulse 55 76 69 Resp 16 16 16 B/P (MAP) 113/83 (93) 136/79 (98) 135/83 (100) Pulse Ox 98 97 96 O2 Delivery Room Air Non-Rebreather Non-Rebreather O2 Flow Rate 15 15 15 09/22/19 09/22/19 09/22/19 09/22/19 17:45 17:55 18:05 18:15 Temp 97.1 97.1 97.1 97.1 Pulse 65 67 70 70 Resp 16 16 16 16 B/P (MAP) 141/90 (107) 135/81 (99) 128/92 (104) 134/90 (105) Pulse Ox 97 97 94 96 O2 Delivery Non-Rebreather Nasal Canula Nasal Canula Nasal Canula O2 Flow Rate 15 3 3 3 09/22/19 09/22/19 09/22/19 09/22/19 18:25 20:00 20:38 21:00 Temp 97.1 97.7 97.7 Pulse 73 74 77 Resp 16 18 16 B/P (MAP) 148/78 (101) 137/68 (91) 126/70 (88) Pulse Ox 96 O2 Delivery Nasal Canula Nasal Canula Nasal Cannula Nasal Canula O2 Flow Rate 32 2.00 2.00 2.00 09/23/19 09/23/19 09/23/19 09/23/19 00:00 04:42 07:52 08:34 Temp 97.7 97.2 97.3 Pulse 68 66 69 69 Resp 16 18 18 18 B/P (MAP) 112/64 (80) 123/90 (101) 112/74 (87) Pulse Ox 92 96 O2 Delivery Nasal Canula Nasal Canula Nasal Canula Nasal Cannula O2 Flow Rate 2.00 2.00 2.00 1.50 FiO2 26 09/23/19 08:36 Resp 18 Pulse Ox 96 Intake and Output 09/22/19 09/22/19 09/23/19 15:00 23:00 07:00 Intake Total 200 ml 2400 ml 200 ml Output Total 190 ml 800 ml Balance 200 ml 2210 ml -600 ml Laboratory Tests Test 09/22/19 17:29 09/23/19 04:45 Bedside Glucose 164 White Blood Count 13.1 10^3/uL Red Blood Count 3.75 10^6/uL Hemoglobin 12.8 g/dL Hematocrit 38.4 % Mean Corpuscular Volume 102.4 fL Mean Corpuscular Hemoglobin 34.1 pg Mean Corpuscular Hemoglobin Concent 33.3 g/dL Red Cell Distribution Width 13.5 % Platelet Count 219 10^3/uL Mean Platelet Volume 10.3 fL Sodium Level 138 mmol/L Potassium Level 4.5 mmol/L Chloride Level 103.0 mmol/L Carbon Dioxide Level 26.5 mmol/L Glucose Level 209 mg/dL Blood Urea Nitrogen 17 mg/dL Creatinine 1.34 mg/dL Calcium Level 8.5 mg/dL Anion Gap 13.0 Estimated GFR () 62.5 BUN/Creatinine Ratio 12.0 Current Medications Medications (Trade) Dose Ordered Sig/Eli PRN Reason Start Time Stop Time Status Last Admin Acetaminophen (Tylenol) 1,000 mg Q6H 09/22/19 11:30 10/22/19 11:29 Atorvastatin Calcium (Lipitor) 20 mg HS 09/22/19 21:00 10/22/19 20:59 09/22/19 22:05 Docusate Sodium (Colace) 100 mg DAILY 09/23/19 09:00 10/23/19 08:59 09/23/19 08:42 Famotidine (Pepcid) 20 mg BID 09/22/19 21:00 10/22/19 20:59 09/23/19 08:42 Gabapentin (Neurontin) 300 mg BID 09/22/19 21:00 10/22/19 20:59 09/23/19 08:42 Gabapentin (Neurontin) 400 mg Q24HRS 09/23/19 11:30 09/23/19 11:31 Hydromorphone HCl (Dilaudid) 2 mg Q4H PRN PAIN 7 - 10 09/22/19 18:00 10/22/19 17:59 Levothyroxine Sodium (Synthroid) 50 mcg ACB 09/23/19 06:30 10/23/19 06:29 09/23/19 05:33 Pantoprazole Sodium (Protonix) 40 mg DAILY 09/23/19 09:00 10/23/19 08:59 09/23/19 08:42 Rivaroxaban (Xarelto) 20 mg HS 09/23/19 18:00 10/23/19 17:59 Sotalol HCl (Betapace) 80 mg BID 09/22/19 21:00 10/22/19 20:59 09/23/19 08:42 Tamsulosin HCl (Flomax) 0.4 mg DAILY 09/23/19 09:00 10/23/19 08:59 09/23/19 08:42 Throat Lozenges (Cepacol Sore Throat Lozenge) 1 each PRN PRN SORE THROAT 09/22/19 12:00 10/22/19 11:59 Tramadol HCl (Ultram) 50 mg Q4HR 09/22/19 18:00 10/22/19 11:59 09/22/19 22:04 Tramadol HCl (Ultram) 100 mg Q4HR PRN PAIN MODERATE 09/22/19 18:00 10/22/19 11:59 Zolpidem Tartrate (Ambien) 5 mg HS PRN INSOMNIA 09/22/19 12:00 10/22/19 11:59 LEVEL 1 SEPSIS INFECTION CRITE: ABX Therapy LEVEL 2-SIRS (LIST ALL THAT AP: None/Not assessed Cardiovascular Evidence: Not Assessed or None Hematologic Evidence: None/Not assessed Hepatic Evidence: None/Not assessed Metabolic Evidence: None/Not assessed Neurological Evidence: None/Not assessed Respiratory Evidence: Need for O2 to keep>90% Renal Evidence: None/Not assessed O2 Sat by Pulse Oximetry: 93 Oxygen Flow Rate: 2.00 Plan Problems: (1) Osteoarthritis of left hip ICD Code: M16.12 - Unilateral primary osteoarthritis, left hip SNOMED: [id number] Discharge Date: Sep 25, 2019 Discharge Disposition: Stable Plan discharge home with family today, staying with family in [place] Tramadol for pain PRN DVT prophylaxis: Xarelto WBAT to LLE follow up with Dr Cornejo on Sunday09/29/19 ALEX PALACIOS NP Sep 25, 2019 09:02
--- NOTE | 2019-09-25 10:51 | NUR ---
IV SITE AND TELEMETRY MONITORING DISCONTINUED AT THIS TIME.
--- NOTE | 2019-09-25 12:05 | NUR ---
PATIENTS O2 79% ON ROOM AIR PATIENTS OXYGEN DESATS DOWN TO 60s WITH AMBULATION PATIENT WAS PLACED BACK IN BED, AND WITH 3 LITERS NASAL CANNULA HIS OXYGEN IS 94%
[2019-09-25] MEDS ORDERED: LEVA15HF4 IH (12:08)
--- NOTE | 2019-09-25 12:09 | PRM.PN ---
Subjective Subjective Date: Sep 25, 2019 Time: 11:55 Subjective Patient qualifies for home O2 after challenge. Patient has been d/c by Ortho. CXR negative for acute pathology. Patient in no distress and states he is at his baseline lung functioning. Patient likely had underlying Pulmonary disease prior to was undiagnosed. Patient however continues to have episodes of heart rate in the low 100s. I have recommended holding d/c and consulting Cardiology. Patient History: Cerebrovascular disorder G8 BROTHER, , Age:89 Congestive heart failure G8 BROTHER, , Age:59 Diabetes mellitus 33 FATHER, , Age:86 No known health problems G8 SISTER G8 SISTER V19 CHILD V19 CHILD V19 CHILD Parkinson's disease G8 BROTHER, , Age:81 No Family History of: Alzheimer's disease Asthma Chronic obstructive pulmonary disease Diabetes insipidus Hypertension VTE VTE Risk Total Score: 5 VTE Risk Score VTE Risk: Score 0-1 = Low Risk (Aggressive mobilization; early ambulation; no VTE prophylaxis required) Score 2: Moderate Risk (Intermittent/Pneumatic Compression Device OR Lovenox/Heparin/Coumadin) Score 3-4: High Risk (Intermittent/Pneumatic Compression Device AND Lovenox/Heparin/Coumadin) Score > or =5: Highest Risk (Intermittent/Pneumatic Compression Device AND Lovenox/Heparin/Coumadin) Review of Systems Allergies: Coded Allergies: No Known Allergies (Unverified , 09/17/19) Scheduled Gabapentin (Gabapentin), 1 CAP PO BID, (Reported) Levothyroxine Sodium (Levothyroxine Sodium), 1 TAB PO DAILY, (Reported) Pantoprazole Sodium (Pantoprazole Sodium), 1 TAB PO DAILY, (Reported) Ranitidine Hcl (Ranitidine Hcl), 1 TAB PO BID, (Reported) Rivaroxaban (Xarelto), 1 TAB PO HS, (Reported) Rosuvastatin 5MG (Crestor 5MG), 1 TAB PO DAILY, (Reported) Sotalol Hcl (Sotalol), 1 TAB PO BID, (Reported) Tamsulosin Hcl (Flomax), 1 CAP PO DAILY, (Reported) Scheduled PRN Tramadol Hcl (Tramadol Hcl), 50 MG PO Q4HR PRN for PAIN Objective Vitals and I/O Vital Sign - Last 24 Hours 09/22/19 09/22/19 09/22/19 09/22/19 11:44 11:44 13:07 13:17 Temp 97.0 Pulse 54 51 52 Resp 16 16 16 B/P (MAP) 155/99 (117) 125/84 (98) 140/67 (91) Pulse Ox 97 97 94 O2 Delivery Room Air Room Air Room Air Room Air 09/22/19 09/22/19 09/22/19 09/22/19 13:28 17:25 17:25 17:35 Temp 97.1 97.1 Pulse 55 76 69 Resp 16 16 16 B/P (MAP) 113/83 (93) 136/79 (98) 135/83 (100) Pulse Ox 98 97 96 O2 Delivery Room Air Non-Rebreather Non-Rebreather O2 Flow Rate 15 15 15 09/22/19 09/22/19 09/22/19 09/22/19 17:45 17:55 18:05 18:15 Temp 97.1 97.1 97.1 97.1 Pulse 65 67 70 70 Resp 16 16 16 16 B/P (MAP) 141/90 (107) 135/81 (99) 128/92 (104) 134/90 (105) Pulse Ox 97 97 94 96 O2 Delivery Non-Rebreather Nasal Canula Nasal Canula Nasal Canula O2 Flow Rate 15 3 3 3 09/22/19 09/22/19 09/22/19 09/22/19 18:25 20:00 20:38 21:00 Temp 97.1 97.7 97.7 Pulse 73 74 77 Resp 16 18 16 B/P (MAP) 148/78 (101) 137/68 (91) 126/70 (88) Pulse Ox 96 O2 Delivery Nasal Canula Nasal Canula Nasal Cannula Nasal Canula O2 Flow Rate 32 2.00 2.00 2.00 09/23/19 09/23/19 09/23/19 09/23/19 00:00 04:42 07:52 08:34 Temp 97.7 97.2 97.3 Pulse 68 66 69 69 Resp 16 18 18 18 B/P (MAP) 112/64 (80) 123/90 (101) 112/74 (87) Pulse Ox 92 96 O2 Delivery Nasal Canula Nasal Canula Nasal Canula Nasal Cannula O2 Flow Rate 2.00 2.00 2.00 1.50 FiO2 26 09/23/19 08:36 Resp 18 Pulse Ox 96 Intake and Output 09/22/19 09/22/19 09/23/19 15:00 23:00 07:00 Intake Total 200 ml 2400 ml 200 ml Output Total 190 ml 800 ml Balance 200 ml 2210 ml -600 ml General: Alert, Oriented X3, Cooperative, No acute distress HEENT: Atraumatic, PERRLA Neck: Supple Lungs: Clear to auscultation Heart: Regular rate Abdomen: Normal bowel sounds, Soft, No tenderness Extremities: No clubbing, No cyanosis, No edema Skin: No rashes, No breakdown Neuro: Normal gait, Normal speech Psych/Mental Status: Mental status NL, Mood NL All Results(Lab/Rad) Laboratory Tests Test 09/22/19 17:29 09/23/19 04:45 Bedside Glucose 164 White Blood Count 13.1 10^3/uL Red Blood Count 3.75 10^6/uL Hemoglobin 12.8 g/dL Hematocrit 38.4 % Mean Corpuscular Volume 102.4 fL Mean Corpuscular Hemoglobin 34.1 pg Mean Corpuscular Hemoglobin Concent 33.3 g/dL Red Cell Distribution Width 13.5 % Platelet Count 219 10^3/uL Mean Platelet Volume 10.3 fL Sodium Level 138 mmol/L Potassium Level 4.5 mmol/L Chloride Level 103.0 mmol/L Carbon Dioxide Level 26.5 mmol/L Glucose Level 209 mg/dL Blood Urea Nitrogen 17 mg/dL Creatinine 1.34 mg/dL Calcium Level 8.5 mg/dL Anion Gap 13.0 Estimated GFR () 62.5 BUN/Creatinine Ratio 12.0 Current Medications Medications (Trade) Dose Ordered Sig/Eli Route PRN Reason Start Time Stop Time Status Last Admin Dose Admin Mupirocin (Bactroban Ointment) 1 gm OT ONCE TP 09/22/19 06:00 09/22/19 12:35 DC 09/22/19 12:28 Sodium Chloride 100 ml @ ud STK-MED ONCE IV 09/22/19 05:30 09/22/19 05:32 DC Cefazolin Sodium (Ancef) 1 gm STK-MED ONCE .ROUTE 09/22/19 05:30 09/22/19 05:32 DC Neostigmine Methylsulfate (Neostigmine) 10 mg STK-MED ONCE .ROUTE 09/22/19 11:04 09/22/19 11:05 DC Ondansetron HCl (Zofran 4 Mg/2 ml Vial) 4 mg STK-MED ONCE .ROUTE 09/22/19 11:04 09/22/19 11:05 DC Rocuronium Mcfall (Zemuron) 100 mg STK-MED ONCE IV 09/22/19 11:04 09/22/19 11:06 DC Hydromorphone HCl (Dilaudid) 2 mg STK-MED ONCE .ROUTE 09/22/19 11:05 09/22/19 11:06 DC Fentanyl Citrate (Sublimaze) 100 mcg STK-MED ONCE .ROUTE 09/22/19 11:05 09/22/19 11:06 DC Propofol (Diprivan) 200 mg STK-MED ONCE IV 09/22/19 11:05 09/22/19 11:06 DC Bupivacaine HCl (Sensorcaine 0.5% Vial) 5 mg STK-MED ONCE .ROUTE 09/22/19 11:06 09/22/19 11:07 DC Lidocaine HCl (Lidocaine 2% Vial) 500 mg STK-MED ONCE .ROUTE 09/22/19 11:06 09/22/19 11:08 DC Rocuronium Mcfall (Zemuron) 100 mg STK-MED ONCE IV 09/22/19 11:22 09/22/19 11:23 DC Acetaminophen (Tylenol) 1,000 mg OT PO 09/22/19 11:30 09/22/19 12:38 DC 09/22/19 12:29 Gabapentin (Neurontin) 400 mg OT PO 09/22/19 11:30 09/22/19 12:36 DC 09/22/19 12:29 Acetaminophen (Tylenol) 1,000 mg Q6H PO 09/22/19 11:30 10/22/19 11:29 Gabapentin (Neurontin) 400 mg Q24HRS PO 09/23/19 11:30 09/23/19 11:31 Gabapentin (Neurontin) 300 mg BID PO 09/22/19 21:00 10/22/19 20:59 09/23/19 08:42 Levothyroxine Sodium (Synthroid) 50 mcg ACB PO 09/23/19 06:30 10/23/19 06:29 09/23/19 05:33 Pantoprazole Sodium (Protonix) 40 mg DAILY PO 09/23/19 09:00 10/23/19 08:59 09/23/19 08:42 Sotalol HCl (Betapace) 80 mg BID PO 09/22/19 21:00 10/22/19 20:59 09/23/19 08:42 Tamsulosin HCl (Flomax) 0.4 mg DAILY PO 09/23/19 09:00 10/23/19 08:59 09/23/19 08:42 Famotidine (Pepcid) 20 mg BID PO 09/22/19 21:00 10/22/19 20:59 09/23/19 08:42 Rivaroxaban (Xarelto) 20 mg HS PO 09/22/19 21:00 09/22/19 17:40 DC Atorvastatin Calcium (Lipitor) 20 mg HS PO 09/22/19 21:00 10/22/19 20:59 09/22/19 22:05 Tramadol HCl (Ultram) 50 mg Q6H PO 09/22/19 12:00 09/22/19 17:40 DC Tramadol HCl (Ultram) 100 mg Q6H PRN PO PAIN 7 - 10 09/22/19 12:00 09/22/19 17:40 DC Zolpidem Tartrate (Ambien) 5 mg HS PRN PO INSOMNIA 09/22/19 12:00 10/22/19 11:59 Docusate Sodium (Colace) 100 mg DAILY PO 09/23/19 09:00 10/23/19 08:59 09/23/19 08:42 Throat Lozenges (Cepacol Sore Throat Lozenge) 1 each PRN PRN MM SORE THROAT 09/22/19 12:00 10/22/19 11:59 Famotidine (Pepcid) 20 mg DAILY PO 09/23/19 09:00 09/22/19 20:47 DC Cefazolin Sodium/ Dextrose (Ancef 2 Gm/D5W 50ml) 2 gm Q8 IV 09/22/19 14:00 09/22/19 12:46 DC Tranexamic Acid (Tranexamic Acid) 1,000 mg STK-MED ONCE IV 09/22/19 12:16 09/22/19 12:17 DC Cefazolin Sodium 2 gm/Sodium Chloride 100 ml @ 100 mls/hr Q8 IV 09/22/19 14:00 09/23/19 06:59 DC 09/23/19 05:33 Hydromorphone HCl (Dilaudid) 0.2 mg Q5M PRN IV PAIN 1-3 09/22/19 14:00 09/22/19 20:46 DC Fentanyl Citrate (Sublimaze) 25 mcg Q5MIN PRN IV PAIN 09/22/19 14:00 09/22/19 20:48 DC Ondansetron HCl (Zofran 4 Mg/2 ml Vial) 4 mg OT ONCE IV 09/22/19 14:00 09/22/19 14:01 DC 09/22/19 17:56 Promethazine HCl (Phenergan) 6.25 mg PRN PRN IV NAUSEA / VOMITING 09/22/19 14:00 09/22/19 20:47 DC Labetalol HCl (Trandate) 5 mg Q5MIN PRN IV HYPERTENSION 09/22/19 14:00 09/22/19 20:47 DC Hydralazine HCl (Apresoline) 5 mg Q5MIN PRN IV HYPERTENSION 09/22/19 14:00 09/22/19 20:45 DC Sodium Chloride (Sodium Chloride) 1,000 ml STK-MED ONCE IR 09/22/19 13:52 09/22/19 13:53 DC Sterile Water (Water) 1,000 ml STK-MED ONCE .ROUTE 09/22/19 13:52 09/22/19 13:53 DC Sodium Chloride 100 ml @ ud STK-MED ONCE IV 09/22/19 13:52 09/22/19 13:53 DC Sodium Chloride 250 ml @ ud STK-MED ONCE IV 09/22/19 13:52 09/22/19 13:54 DC Sodium Chloride (NS 3000ml Irr) 3,000 ml STK-MED ONCE IR 09/22/19 13:52 09/22/19 13:54 DC Rivaroxaban (Xarelto) 20 mg HS PO 09/23/19 18:00 10/23/19 17:59 Tramadol HCl (Ultram) 50 mg Q4HR PO 09/22/19 18:00 10/22/19 11:59 09/22/19 22:04 Tramadol HCl (Ultram) 100 mg Q4HR PRN PO PAIN MODERATE 09/22/19 18:00 10/22/19 11:59 Hydromorphone HCl (Dilaudid) 2 mg Q4H PRN IV PAIN 7 - 10 09/22/19 18:00 10/22/19 17:59 Ephedrine Sulfate (Ephedrine Sulfate) 50 mg STK-MED ONCE .ROUTE 09/22/19 17:38 09/22/19 17:40 DC Ondansetron HCl (Zofran 4 Mg/2 ml Vial) 4 mg STK-MED ONCE .ROUTE 09/22/19 17:54 09/22/19 17:56 DC Famotidine (Pepcid) 20 mg STK-MED ONCE IV 09/22/19 18:01 09/22/19 18:03 DC Famotidine (Pepcid) 20 mg STAT STAT IV 09/22/19 18:03 09/22/19 20:44 DC 09/22/19 18:12 Metoclopramide HCl (Reglan) 10 mg STAT STAT IV 09/22/19 18:04 09/22/19 20:44 DC 09/22/19 18:12 Course Sepsis Screening Results: Posi: POSITIVE Sepsis Qualifier/Stage: SEPSIS RISK Vitals & review Data Vital Sign - Last 24 Hours 09/22/19 09/22/19 09/22/19 09/22/19 11:44 11:44 13:07 13:17 Temp 97.0 Pulse 54 51 52 Resp 16 16 16 B/P (MAP) 155/99 (117) 125/84 (98) 140/67 (91) Pulse Ox 97 97 94 O2 Delivery Room Air Room Air Room Air Room Air 09/22/19 09/22/19 09/22/19 09/22/19 13:28 17:25 17:25 17:35 Temp 97.1 97.1 Pulse 55 76 69 Resp 16 16 16 B/P (MAP) 113/83 (93) 136/79 (98) 135/83 (100) Pulse Ox 98 97 96 O2 Delivery Room Air Non-Rebreather Non-Rebreather O2 Flow Rate 15 15 15 09/22/19 09/22/19 09/22/19 09/22/19 17:45 17:55 18:05 18:15 Temp 97.1 97.1 97.1 97.1 Pulse 65 67 70 70 Resp 16 16 16 16 B/P (MAP) 141/90 (107) 135/81 (99) 128/92 (104) 134/90 (105) Pulse Ox 97 97 94 96 O2 Delivery Non-Rebreather Nasal Canula Nasal Canula Nasal Canula O2 Flow Rate 15 3 3 3 09/22/19 09/22/19 09/22/19 09/22/19 18:25 20:00 20:38 21:00 Temp 97.1 97.7 97.7 Pulse 73 74 77 Resp 16 18 16 B/P (MAP) 148/78 (101) 137/68 (91) 126/70 (88) Pulse Ox 96 O2 Delivery Nasal Canula Nasal Canula Nasal Cannula Nasal Canula O2 Flow Rate 32 2.00 2.00 2.00 09/23/19 09/23/19 09/23/19 09/23/19 00:00 04:42 07:52 08:34 Temp 97.7 97.2 97.3 Pulse 68 66 69 69 Resp 16 18 18 18 B/P (MAP) 112/64 (80) 123/90 (101) 112/74 (87) Pulse Ox 92 96 O2 Delivery Nasal Canula Nasal Canula Nasal Canula Nasal Cannula O2 Flow Rate 2.00 2.00 2.00 1.50 FiO2 26 09/23/19 08:36 Resp 18 Pulse Ox 96 Intake and Output 09/22/19 09/22/19 09/23/19 15:00 23:00 07:00 Intake Total 200 ml 2400 ml 200 ml Output Total 190 ml 800 ml Balance 200 ml 2210 ml -600 ml Laboratory Tests Test 09/22/19 17:29 09/23/19 04:45 Bedside Glucose 164 White Blood Count 13.1 10^3/uL Red Blood Count 3.75 10^6/uL Hemoglobin 12.8 g/dL Hematocrit 38.4 % Mean Corpuscular Volume 102.4 fL Mean Corpuscular Hemoglobin 34.1 pg Mean Corpuscular Hemoglobin Concent 33.3 g/dL Red Cell Distribution Width 13.5 % Platelet Count 219 10^3/uL Mean Platelet Volume 10.3 fL Sodium Level 138 mmol/L Potassium Level 4.5 mmol/L Chloride Level 103.0 mmol/L Carbon Dioxide Level 26.5 mmol/L Glucose Level 209 mg/dL Blood Urea Nitrogen 17 mg/dL Creatinine 1.34 mg/dL Calcium Level 8.5 mg/dL Anion Gap 13.0 Estimated GFR () 62.5 BUN/Creatinine Ratio 12.0 Current Medications Medications (Trade) Dose Ordered Sig/Eli PRN Reason Start Time Stop Time Status Last Admin Acetaminophen (Tylenol) 1,000 mg Q6H 09/22/19 11:30 10/22/19 11:29 Atorvastatin Calcium (Lipitor) 20 mg HS 09/22/19 21:00 10/22/19 20:59 09/22/19 22:05 Docusate Sodium (Colace) 100 mg DAILY 09/23/19 09:00 10/23/19 08:59 09/23/19 08:42 Famotidine (Pepcid) 20 mg BID 09/22/19 21:00 10/22/19 20:59 09/23/19 08:42 Gabapentin (Neurontin) 300 mg BID 09/22/19 21:00 10/22/19 20:59 09/23/19 08:42 Gabapentin (Neurontin) 400 mg Q24HRS 09/23/19 11:30 09/23/19 11:31 Hydromorphone HCl (Dilaudid) 2 mg Q4H PRN PAIN 7 - 10 09/22/19 18:00 10/22/19 17:59 Levothyroxine Sodium (Synthroid) 50 mcg ACB 09/23/19 06:30 10/23/19 06:29 09/23/19 05:33 Pantoprazole Sodium (Protonix) 40 mg DAILY 09/23/19 09:00 10/23/19 08:59 09/23/19 08:42 Rivaroxaban (Xarelto) 20 mg HS 09/23/19 18:00 10/23/19 17:59 Sotalol HCl (Betapace) 80 mg BID 09/22/19 21:00 10/22/19 20:59 09/23/19 08:42 Tamsulosin HCl (Flomax) 0.4 mg DAILY 09/23/19 09:00 10/23/19 08:59 09/23/19 08:42 Throat Lozenges (Cepacol Sore Throat Lozenge) 1 each PRN PRN SORE THROAT 09/22/19 12:00 10/22/19 11:59 Tramadol HCl (Ultram) 50 mg Q4HR 09/22/19 18:00 10/22/19 11:59 09/22/19 22:04 Tramadol HCl (Ultram) 100 mg Q4HR PRN PAIN MODERATE 09/22/19 18:00 10/22/19 11:59 Zolpidem Tartrate (Ambien) 5 mg HS PRN INSOMNIA 09/22/19 12:00 10/22/19 11:59 LEVEL 1 SEPSIS INFECTION CRITE: ABX Therapy LEVEL 2-SIRS (LIST ALL THAT AP: None/Not assessed Cardiovascular Evidence: Not Assessed or None Hematologic Evidence: None/Not assessed Hepatic Evidence: None/Not assessed Metabolic Evidence: None/Not assessed Neurological Evidence: None/Not assessed Respiratory Evidence: Need for O2 to keep>90% Renal Evidence: None/Not assessed O2 Sat by Pulse Oximetry: 89 Oxygen Flow Rate: 2.00 Assessment/Plan Assessment/Plan Assessment/Plan 1. OA of Left Hip: s/p Left Hip Arthroplasty POD#3. Cont pain control. cont PT eval/treat. 2. Afib: patient having multiple episodes of RVR usually associated with Hypoxia. D/C held. Will consult Cardiology. Cont Betapace, Xarelto currently. 3. BPH: cont Tamsulosin 4. Hypothyroidism: cont Synthroid 5. DM: Patient states that PCP d/c Oral Hypoglycemics. A1C @ goal for age group without medications. We will cover with SSI while in hospital. F/U outpatient for further treatment recs. 6. PPx: Xarelto, Pepcid 7. Dizziness: resolved. 8. KRISTEN: repeat metabolic panel in AM. 9. COPD/Hypoxia: patient still hypoxic and has qualified for home O2. Patient CXR negative for acute pathology. OMI BORJA MD Sep 25, 2019 12:09
[2019-09-25] MEDS: LACTATED RINGERS 1,000 ML IV SCH (14:00)
[2019-09-25 16:07] LABS: BASOPHIL % 0.3 % (0.0-0.2); EOSINOPHIL # 0.3 10^3/uL (0.0-0.2); EOSINOPHIL % 3.1 % (0.0-5.0); HEMOGLOBIN 10.5 g/dL (13.9-16.3); LYMPHOCYTES # 1.3 10^3/uL (1.0-4.8); LYMPHOCYTES % 16.6 % (24.0-44.0); MEAN CELL HGB 33.4 pg (26-34); MEAN CELL HGB CONCENTRATION 32.1 g/dL (33-37); MEAN CORP VOLUME 104.1 fL (78-100); MEAN PLATELET VOLUME 10.1 fL (7.8-11.0); MONOCYTES # 0.8 10^3/uL (0.3-0.8); MONOCYTES % 10.2 % (5.0-12.0); NEUTROPHIL # 5.5 10^3/uL (1.8-7.7); NEUTROPHILS % 69.7 % (41.0-85.0); RED CELL DISTRIBUTION WIDTH 13.6 % (11.5-14.5); WHITE BLOOD CELL 7.9 10^3/uL (4.5-11.0)
[2019-09-25] MEDS: LIPITOR PO SCH (21:42)
[2019-09-25] MEDS: XARELTO PO SCH (21:42)
[2019-09-26] MEDS: TYLENOL PO SCH ×5 (01:27→23:30)
[2019-09-26] MEDS: ULTRAM PO SCH ×6 (01:28→20:31)
[2019-09-26 05:01] LABS: BASOPHIL % 0.3 % (0.0-0.2); EOSINOPHIL # 0.2 10^3/uL (0.0-0.2); EOSINOPHIL % 3.3 % (0.0-5.0); HEMOGLOBIN 10.4 g/dL (13.9-16.3); LYMPHOCYTES # 1.3 10^3/uL (1.0-4.8); LYMPHOCYTES % 18.9 % (24.0-44.0); MEAN CELL HGB CONCENTRATION 32.9 g/dL (33-37); MEAN CORP VOLUME 103.3 fL (78-100); MEAN PLATELET VOLUME 10.6 fL (7.8-11.0); MONOCYTES # 0.8 10^3/uL (0.3-0.8); MONOCYTES % 10.9 % (5.0-12.0); NEUTROPHIL # 4.7 10^3/uL (1.8-7.7); NEUTROPHILS % 66.3 % (41.0-85.0); RED CELL DISTRIBUTION WIDTH 13.6 % (11.5-14.5); WHITE BLOOD CELL 7.1 10^3/uL (4.5-11.0)
[2019-09-26 05:15] VITALS: BP 105/71
[2019-09-26 05:34] LABS: CARBON DIOXIDE 28.4 mmol/L (20.0-32)
[2019-09-26] MEDS: SYNTHROID PO SCH (05:38)
[2019-09-26 05:39] LABS: CALCIUM 8.2 mg/dL (8.4-10.5)
[2019-09-26] MEDS: HUMULIN R SQ SCH ×4 (07:30→20:48)
--- NOTE | 2019-09-26 07:38 | PRM.PN ---
Subjective Subjective Date: Sep 26, 2019 Time: 07:30 Subjective Patient much better. No persistent RVR. Episodes less frequent and only come with exertion or hypoxia. Patient cleared from medical standpoint for d/c. Patient needs close f/u with Cardiology and Pulmonology. Patient History: Cerebrovascular disorder G8 BROTHER, , Age:91 Congestive heart failure G8 BROTHER, , Age:59 Diabetes mellitus 33 FATHER, , Age:86 No known health problems G8 SISTER G8 SISTER V19 CHILD V19 CHILD V19 CHILD Parkinson's disease G8 BROTHER, , Age:81 No Family History of: Alzheimer's disease Asthma Chronic obstructive pulmonary disease Diabetes insipidus Hypertension VTE VTE Risk Total Score: 5 VTE Risk Score VTE Risk: Score 0-1 = Low Risk (Aggressive mobilization; early ambulation; no VTE prophylaxis required) Score 2: Moderate Risk (Intermittent/Pneumatic Compression Device OR Lovenox/Heparin/Coumadin) Score 3-4: High Risk (Intermittent/Pneumatic Compression Device AND Lovenox/Heparin/Coumadin) Score > or =5: Highest Risk (Intermittent/Pneumatic Compression Device AND Lovenox/Heparin/Coumadin) Review of Systems Allergies: Coded Allergies: No Known Allergies (Unverified , 09/17/19) Scheduled Gabapentin (Gabapentin), 1 CAP PO BID, (Reported) Levothyroxine Sodium (Levothyroxine Sodium), 1 TAB PO DAILY, (Reported) Pantoprazole Sodium (Pantoprazole Sodium), 1 TAB PO DAILY, (Reported) Ranitidine Hcl (Ranitidine Hcl), 1 TAB PO BID, (Reported) Rivaroxaban (Xarelto), 1 TAB PO HS, (Reported) Rosuvastatin 5MG (Crestor 5MG), 1 TAB PO DAILY, (Reported) Sotalol Hcl (Sotalol), 1 TAB PO BID, (Reported) Tamsulosin Hcl (Flomax), 1 CAP PO DAILY, (Reported) Scheduled PRN Levalbuterol Tartrate (Xopenex Hfa), 15 GM IH Q4 PRN for dyspnea Tramadol Hcl (Tramadol Hcl), 50 MG PO Q4HR PRN for PAIN Objective Vitals and I/O Vital Sign - Last 24 Hours 09/22/19 09/22/19 09/22/19 09/22/19 11:44 11:44 13:07 13:17 Temp 97.0 Pulse 54 51 52 Resp 16 16 16 B/P (MAP) 155/99 (117) 125/84 (98) 140/67 (91) Pulse Ox 97 97 94 O2 Delivery Room Air Room Air Room Air Room Air 09/22/19 09/22/19 09/22/19 09/22/19 13:28 17:25 17:25 17:35 Temp 97.1 97.1 Pulse 55 76 69 Resp 16 16 16 B/P (MAP) 113/83 (93) 136/79 (98) 135/83 (100) Pulse Ox 98 97 96 O2 Delivery Room Air Non-Rebreather Non-Rebreather O2 Flow Rate 15 15 15 09/22/19 09/22/19 09/22/19 09/22/19 17:45 17:55 18:05 18:15 Temp 97.1 97.1 97.1 97.1 Pulse 65 67 70 70 Resp 16 16 16 16 B/P (MAP) 141/90 (107) 135/81 (99) 128/92 (104) 134/90 (105) Pulse Ox 97 97 94 96 O2 Delivery Non-Rebreather Nasal Canula Nasal Canula Nasal Canula O2 Flow Rate 15 3 3 3 09/22/19 09/22/19 09/22/19 09/22/19 18:25 20:00 20:38 21:00 Temp 97.1 97.7 97.7 Pulse 73 74 77 Resp 16 18 16 B/P (MAP) 148/78 (101) 137/68 (91) 126/70 (88) Pulse Ox 96 O2 Delivery Nasal Canula Nasal Canula Nasal Cannula Nasal Canula O2 Flow Rate 32 2.00 2.00 2.00 09/23/19 09/23/19 09/23/19 09/23/19 00:00 04:42 07:52 08:34 Temp 97.7 97.2 97.3 Pulse 68 66 69 69 Resp 16 18 18 18 B/P (MAP) 112/64 (80) 123/90 (101) 112/74 (87) Pulse Ox 92 96 O2 Delivery Nasal Canula Nasal Canula Nasal Canula Nasal Cannula O2 Flow Rate 2.00 2.00 2.00 1.50 FiO2 26 09/23/19 08:36 Resp 18 Pulse Ox 96 Intake and Output 09/22/19 09/22/19 09/23/19 15:00 23:00 07:00 Intake Total 200 ml 2400 ml 200 ml Output Total 190 ml 800 ml Balance 200 ml 2210 ml -600 ml General: Alert, Oriented X3, Cooperative, No acute distress HEENT: Atraumatic, PERRLA Neck: Supple Lungs: Clear to auscultation, Other (decreased) Heart: Regular rate Abdomen: Normal bowel sounds, Soft, No tenderness Extremities: No clubbing, No cyanosis, No edema Skin: No rashes, No breakdown Neuro: Normal gait, Normal speech Psych/Mental Status: Mental status NL, Mood NL All Results(Lab/Rad) Laboratory Tests Test 09/22/19 17:29 09/23/19 04:45 Bedside Glucose 164 White Blood Count 13.1 10^3/uL Red Blood Count 3.75 10^6/uL Hemoglobin 12.8 g/dL Hematocrit 38.4 % Mean Corpuscular Volume 102.4 fL Mean Corpuscular Hemoglobin 34.1 pg Mean Corpuscular Hemoglobin Concent 33.3 g/dL Red Cell Distribution Width 13.5 % Platelet Count 219 10^3/uL Mean Platelet Volume 10.3 fL Sodium Level 138 mmol/L Potassium Level 4.5 mmol/L Chloride Level 103.0 mmol/L Carbon Dioxide Level 26.5 mmol/L Glucose Level 209 mg/dL Blood Urea Nitrogen 17 mg/dL Creatinine 1.34 mg/dL Calcium Level 8.5 mg/dL Anion Gap 13.0 Estimated GFR () 62.5 BUN/Creatinine Ratio 12.0 Current Medications Medications (Trade) Dose Ordered Sig/Eli Route PRN Reason Start Time Stop Time Status Last Admin Dose Admin Mupirocin (Bactroban Ointment) 1 gm OT ONCE TP 09/22/19 06:00 09/22/19 12:35 DC 09/22/19 12:28 Sodium Chloride 100 ml @ ud STK-MED ONCE IV 09/22/19 05:30 09/22/19 05:32 DC Cefazolin Sodium (Ancef) 1 gm STK-MED ONCE .ROUTE 09/22/19 05:30 09/22/19 05:32 DC Neostigmine Methylsulfate (Neostigmine) 10 mg STK-MED ONCE .ROUTE 09/22/19 11:04 09/22/19 11:05 DC Ondansetron HCl (Zofran 4 Mg/2 ml Vial) 4 mg STK-MED ONCE .ROUTE 09/22/19 11:04 09/22/19 11:05 DC Rocuronium [place] (Zemuron) 100 mg STK-MED ONCE IV 09/22/19 11:04 09/22/19 11:06 DC Hydromorphone HCl (Dilaudid) 2 mg STK-MED ONCE .ROUTE 09/22/19 11:05 09/22/19 11:06 DC Fentanyl Citrate (Sublimaze) 100 mcg STK-MED ONCE .ROUTE 09/22/19 11:05 09/22/19 11:06 DC Propofol (Diprivan) 200 mg STK-MED ONCE IV 09/22/19 11:05 09/22/19 11:06 DC Bupivacaine HCl (Sensorcaine 0.5% Vial) 5 mg STK-MED ONCE .ROUTE 09/22/19 11:06 09/22/19 11:07 DC Lidocaine HCl (Lidocaine 2% Vial) 500 mg STK-MED ONCE .ROUTE 09/22/19 11:06 09/22/19 11:08 DC Rocuronium [place] (Zemuron) 100 mg STK-MED ONCE IV 09/22/19 11:22 09/22/19 11:23 DC Acetaminophen (Tylenol) 1,000 mg OT PO 09/22/19 11:30 09/22/19 12:38 DC 09/22/19 12:29 Gabapentin (Neurontin) 400 mg OT PO 09/22/19 11:30 09/22/19 12:36 DC 09/22/19 12:29 Acetaminophen (Tylenol) 1,000 mg Q6H PO 09/22/19 11:30 10/22/19 11:29 Gabapentin (Neurontin) 400 mg Q24HRS PO 09/23/19 11:30 09/23/19 11:31 Gabapentin (Neurontin) 300 mg BID PO 09/22/19 21:00 10/22/19 20:59 09/23/19 08:42 Levothyroxine Sodium (Synthroid) 50 mcg ACB PO 09/23/19 06:30 10/23/19 06:29 09/23/19 05:33 Pantoprazole Sodium (Protonix) 40 mg DAILY PO 09/23/19 09:00 10/23/19 08:59 09/23/19 08:42 Sotalol HCl (Betapace) 80 mg BID PO 09/22/19 21:00 10/22/19 20:59 09/23/19 08:42 Tamsulosin HCl (Flomax) 0.4 mg DAILY PO 09/23/19 09:00 10/23/19 08:59 09/23/19 08:42 Famotidine (Pepcid) 20 mg BID PO 09/22/19 21:00 10/22/19 20:59 09/23/19 08:42 Rivaroxaban (Xarelto) 20 mg HS PO 09/22/19 21:00 09/22/19 17:40 DC Atorvastatin Calcium (Lipitor) 20 mg HS PO 09/22/19 21:00 10/22/19 20:59 09/22/19 22:05 Tramadol HCl (Ultram) 50 mg Q6H PO 09/22/19 12:00 09/22/19 17:40 DC Tramadol HCl (Ultram) 100 mg Q6H PRN PO PAIN 7 - 10 09/22/19 12:00 09/22/19 17:40 DC Zolpidem Tartrate (Ambien) 5 mg HS PRN PO INSOMNIA 09/22/19 12:00 10/22/19 11:59 Docusate Sodium (Colace) 100 mg DAILY PO 09/23/19 09:00 10/23/19 08:59 09/23/19 08:42 Throat Lozenges (Cepacol Sore Throat Lozenge) 1 each PRN PRN MM SORE THROAT 09/22/19 12:00 10/22/19 11:59 Famotidine (Pepcid) 20 mg DAILY PO 09/23/19 09:00 09/22/19 20:47 DC Cefazolin Sodium/ Dextrose (Ancef 2 Gm/D5W 50ml) 2 gm Q8 IV 09/22/19 14:00 09/22/19 12:46 DC Tranexamic Acid (Tranexamic Acid) 1,000 mg STK-MED ONCE IV 09/22/19 12:16 09/22/19 12:17 DC Cefazolin Sodium 2 gm/Sodium Chloride 100 ml @ 100 mls/hr Q8 IV 09/22/19 14:00 09/23/19 06:59 DC 09/23/19 05:33 Hydromorphone HCl (Dilaudid) 0.2 mg Q5M PRN IV PAIN 1-3 09/22/19 14:00 09/22/19 20:46 DC Fentanyl Citrate (Sublimaze) 25 mcg Q5MIN PRN IV PAIN 09/22/19 14:00 09/22/19 20:48 DC Ondansetron HCl (Zofran 4 Mg/2 ml Vial) 4 mg OT ONCE IV 09/22/19 14:00 09/22/19 14:01 DC 09/22/19 17:56 Promethazine HCl (Phenergan) 6.25 mg PRN PRN IV NAUSEA / VOMITING 09/22/19 14:00 09/22/19 20:47 DC Labetalol HCl (Trandate) 5 mg Q5MIN PRN IV HYPERTENSION 09/22/19 14:00 09/22/19 20:47 DC Hydralazine HCl (Apresoline) 5 mg Q5MIN PRN IV HYPERTENSION 09/22/19 14:00 09/22/19 20:45 DC Sodium Chloride (Sodium Chloride) 1,000 ml STK-MED ONCE IR 09/22/19 13:52 09/22/19 13:53 DC Sterile Water (Water) 1,000 ml STK-MED ONCE .ROUTE 09/22/19 13:52 09/22/19 13:53 DC Sodium Chloride 100 ml @ ud STK-MED ONCE IV 09/22/19 13:52 09/22/19 13:53 DC Sodium Chloride 250 ml @ ud STK-MED ONCE IV 09/22/19 13:52 09/22/19 13:54 DC Sodium Chloride (NS 3000ml Irr) 3,000 ml STK-MED ONCE IR 09/22/19 13:52 09/22/19 13:54 DC Rivaroxaban (Xarelto) 20 mg HS PO 09/23/19 18:00 10/23/19 17:59 Tramadol HCl (Ultram) 50 mg Q4HR PO 09/22/19 18:00 10/22/19 11:59 09/22/19 22:04 Tramadol HCl (Ultram) 100 mg Q4HR PRN PO PAIN MODERATE 09/22/19 18:00 10/22/19 11:59 Hydromorphone HCl (Dilaudid) 2 mg Q4H PRN IV PAIN 7 - 10 09/22/19 18:00 10/22/19 17:59 Ephedrine Sulfate (Ephedrine Sulfate) 50 mg STK-MED ONCE .ROUTE 09/22/19 17:38 09/22/19 17:40 DC Ondansetron HCl (Zofran 4 Mg/2 ml Vial) 4 mg STK-MED ONCE .ROUTE 09/22/19 17:54 09/22/19 17:56 DC Famotidine (Pepcid) 20 mg STK-MED ONCE IV 09/22/19 18:01 09/22/19 18:03 DC Famotidine (Pepcid) 20 mg STAT STAT IV 09/22/19 18:03 09/22/19 20:44 DC 09/22/19 18:12 Metoclopramide HCl (Reglan) 10 mg STAT STAT IV 09/22/19 18:04 09/22/19 20:44 DC 09/22/19 18:12 Course Sepsis Screening Results: Posi: POSITIVE Sepsis Qualifier/Stage: SEPSIS RISK Vitals & review Data Vital Sign - Last 24 Hours 09/22/19 09/22/19 09/22/19 09/22/19 11:44 11:44 13:07 13:17 Temp 97.0 Pulse 54 51 52 Resp 16 16 16 B/P (MAP) 155/99 (117) 125/84 (98) 140/67 (91) Pulse Ox 97 97 94 O2 Delivery Room Air Room Air Room Air Room Air 09/22/19 09/22/19 09/22/19 09/22/19 13:28 17:25 17:25 17:35 Temp 97.1 97.1 Pulse 55 76 69 Resp 16 16 16 B/P (MAP) 113/83 (93) 136/79 (98) 135/83 (100) Pulse Ox 98 97 96 O2 Delivery Room Air Non-Rebreather Non-Rebreather O2 Flow Rate 15 15 15 09/22/19 09/22/19 09/22/19 09/22/19 17:45 17:55 18:05 18:15 Temp 97.1 97.1 97.1 97.1 Pulse 65 67 70 70 Resp 16 16 16 16 B/P (MAP) 141/90 (107) 135/81 (99) 128/92 (104) 134/90 (105) Pulse Ox 97 97 94 96 O2 Delivery Non-Rebreather Nasal Canula Nasal Canula Nasal Canula O2 Flow Rate 15 3 3 3 09/22/19 09/22/19 09/22/19 09/22/19 18:25 20:00 20:38 21:00 Temp 97.1 97.7 97.7 Pulse 73 74 77 Resp 16 18 16 B/P (MAP) 148/78 (101) 137/68 (91) 126/70 (88) Pulse Ox 96 O2 Delivery Nasal Canula Nasal Canula Nasal Cannula Nasal Canula O2 Flow Rate 32 2.00 2.00 2.00 09/23/19 09/23/19 09/23/19 09/23/19 00:00 04:42 07:52 08:34 Temp 97.7 97.2 97.3 Pulse 68 66 69 69 Resp 16 18 18 18 B/P (MAP) 112/64 (80) 123/90 (101) 112/74 (87) Pulse Ox 92 96 O2 Delivery Nasal Canula Nasal Canula Nasal Canula Nasal Cannula O2 Flow Rate 2.00 2.00 2.00 1.50 FiO2 26 09/23/19 08:36 Resp 18 Pulse Ox 96 Intake and Output 09/22/19 09/22/19 09/23/19 15:00 23:00 07:00 Intake Total 200 ml 2400 ml 200 ml Output Total 190 ml 800 ml Balance 200 ml 2210 ml -600 ml Laboratory Tests Test 09/22/19 17:29 09/23/19 04:45 Bedside Glucose 164 White Blood Count 13.1 10^3/uL Red Blood Count 3.75 10^6/uL Hemoglobin 12.8 g/dL Hematocrit 38.4 % Mean Corpuscular Volume 102.4 fL Mean Corpuscular Hemoglobin 34.1 pg Mean Corpuscular Hemoglobin Concent 33.3 g/dL Red Cell Distribution Width 13.5 % Platelet Count 219 10^3/uL Mean Platelet Volume 10.3 fL Sodium Level 138 mmol/L Potassium Level 4.5 mmol/L Chloride Level 103.0 mmol/L Carbon Dioxide Level 26.5 mmol/L Glucose Level 209 mg/dL Blood Urea Nitrogen 17 mg/dL Creatinine 1.34 mg/dL Calcium Level 8.5 mg/dL Anion Gap 13.0 Estimated GFR () 62.5 BUN/Creatinine Ratio 12.0 Current Medications Medications (Trade) Dose Ordered Sig/Eli PRN Reason Start Time Stop Time Status Last Admin Acetaminophen (Tylenol) 1,000 mg Q6H 09/22/19 11:30 10/22/19 11:29 Atorvastatin Calcium (Lipitor) 20 mg HS 09/22/19 21:00 10/22/19 20:59 09/22/19 22:05 Docusate Sodium (Colace) 100 mg DAILY 09/23/19 09:00 10/23/19 08:59 09/23/19 08:42 Famotidine (Pepcid) 20 mg BID 09/22/19 21:00 10/22/19 20:59 09/23/19 08:42 Gabapentin (Neurontin) 300 mg BID 09/22/19 21:00 10/22/19 20:59 09/23/19 08:42 Gabapentin (Neurontin) 400 mg Q24HRS 09/23/19 11:30 09/23/19 11:31 Hydromorphone HCl (Dilaudid) 2 mg Q4H PRN PAIN 7 - 10 09/22/19 18:00 10/22/19 17:59 Levothyroxine Sodium (Synthroid) 50 mcg ACB 09/23/19 06:30 10/23/19 06:29 09/23/19 05:33 Pantoprazole Sodium (Protonix) 40 mg DAILY 09/23/19 09:00 10/23/19 08:59 09/23/19 08:42 Rivaroxaban (Xarelto) 20 mg HS 09/23/19 18:00 10/23/19 17:59 Sotalol HCl (Betapace) 80 mg BID 09/22/19 21:00 10/22/19 20:59 09/23/19 08:42 Tamsulosin HCl (Flomax) 0.4 mg DAILY 09/23/19 09:00 10/23/19 08:59 09/23/19 08:42 Throat Lozenges (Cepacol Sore Throat Lozenge) 1 each PRN PRN SORE THROAT 09/22/19 12:00 10/22/19 11:59 Tramadol HCl (Ultram) 50 mg Q4HR 09/22/19 18:00 10/22/19 11:59 09/22/19 22:04 Tramadol HCl (Ultram) 100 mg Q4HR PRN PAIN MODERATE 09/22/19 18:00 10/22/19 11:59 Zolpidem Tartrate (Ambien) 5 mg HS PRN INSOMNIA 09/22/19 12:00 10/22/19 11:59 LEVEL 1 SEPSIS INFECTION CRITE: ABX Therapy LEVEL 2-SIRS (LIST ALL THAT AP: None/Not assessed Cardiovascular Evidence: Not Assessed or None Hematologic Evidence: None/Not assessed Hepatic Evidence: None/Not assessed Metabolic Evidence: None/Not assessed Neurological Evidence: None/Not assessed Respiratory Evidence: Need for O2 to keep>90% Renal Evidence: None/Not assessed O2 Sat by Pulse Oximetry: 92 Oxygen Flow Rate: 2.00 Assessment/Plan Assessment/Plan Assessment/Plan 1. 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 Likely d/c to home today. 2. Afib: no persistent RVR. Episodes less frequent and not sustained. Cleared from medical standpoint to d/c on Betapace and Xarelto. 3. BPH: cont Tamsulosin 4. Hypothyroidism: cont Synthroid 5. DM: f/u with PCP for further treatment recommendations. PCP had taken off medications. We will not restart. 6. PPx: Xarelto, Pepcid 7. Dizziness: resolved. 8. KRISTEN: resolved. 9. COPD/Hypoxia: d/c to home on Home O2. Prior to d/c today after O2 was delivered. Patient choked on liquid refreshment. Patient has hx of dysphagia in past. MATERIAL HANDLING TECHNICIAN consulted as well as Surgery. Patient will have speech eval/treat and surgical evaluation with likely EGD in AM. OMI BORJA MD Sep 26, 2019 07:38
--- NOTE | 2019-09-26 08:00 | NUR ---
DISCHARGE UPDATE CM FAXED 02 ORDER TO [facility] AND NOTIFIED LELA PACKER. CM ALSO FOLLOWED UP WITH PATIENT TO EDUCATED HIM AGAIN ON HH SERVICES. PATIENT CONTINUES TO REFUSE A NEED FOR HOME HEALTH. DISCHARGE GOAL IS FOR PATIENT TO D/C HOME WITH [facility] IN [place] FOR A COUPLE OF WEEKS AND CONTINUE ROUTINE CARE THERE.
[2019-09-26 09:45] VITALS: BP 129/71
[2019-09-26] MEDS: FLOMAX PO SCH (09:48)
[2019-09-26] MEDS: BETAPACE PO SCH ×2 (09:48→20:32)
[2019-09-26] MEDS: COLACE PO SCH ×3 (09:48→20:34)
[2019-09-26] MEDS: PEPCID PO SCH ×3 (09:48→20:48)
[2019-09-26] MEDS: NEURONTIN PO SCH ×3 (09:48→20:47)
[2019-09-26] MEDS: PROTONIX PO SCH (09:48)
[2019-09-26 10:24] VITALS: BP 151/86
--- NOTE | 2019-09-26 11:00 | NUR ---
SHORT OF BREATH PATIENT COMPLAIN OF BEING SHORT OF BREATH, AND STATES "FEELING LIKE SOMETHING IS STUCK IN MY THROAT, ITS HARD TO SWALLOW AND HARD TO TAKE A DEEP BREATH" O2 SAT 98% ON 2.[address] NOTIFIED. ORDERS RECEIVED. WILL CONTINUE TO MONITOR.
[2019-09-26 12:04] VITALS: BP 123/72
--- NOTE | 2019-09-26 12:18 | DIREP ---
PROCEDURE:CHEST 1 VIEW COMPARISON:[facility], CR, XRAY CHEST SINGLE VW, 09/25/2019, 07:40 AM. INDICATIONS:Shortness of breath FINDINGS: LUNGS/PLEURA:Elevated left hemidiaphragm with left basilar and retrocardiac atelectasis versus infiltrate. VASCULATURE:Normal. Unremarkable pulmonary vasculature. CARDIAC:Borderline to mild cardiomegaly. MEDIASTINUM:Normal. No visible mass or adenopathy. BONES:No acute pathology. OTHER:Negative. CONCLUSION:Elevated left hemidiaphragm with left basilar and retrocardiac atelectasis versus infiltrate. Dictated by: Desmond Ribera MD on 09/26/2019 at 12:16 PM
[2019-09-26] MEDS ORDERED: LANOLIN HYDROUS TP ONE (13:16)
[2019-09-26] MEDS ORDERED: DULCOLAX EC TABLET PO STA (16:45)
[2019-09-26] MEDS: LACTATED RINGERS 1,000 ML IV SCH ×2 (16:57)
[2019-09-26] MEDS: ZOSYN 3.375 GM 3.375 GM in NS 100ML 100 ML IV SCH ×2 (16:57→22:34)
[2019-09-26] MEDS ORDERED: BISAC-EVAC RC ONE (17:28)
[2019-09-26 17:46] VITALS: BP 117/74
[2019-09-26 20:04] VITALS: BP 107/64
[2019-09-26] MEDS: XARELTO PO SCH (20:32)
[2019-09-26] MEDS: LIPITOR PO SCH ×2 (20:32→20:47)
--- NOTE | 2019-09-26 20:34 | NUR ---
Nonadminestered 2100 Colace. Given on day shift @ 1730
--- NOTE | 2019-09-26 23:46 | NUR ---
Patient ambulated in hallway. Tolerated well
[2019-09-27] VITALS (8 sets, daily range): BP systolic 108–157; BP diastolic 56–86
[2019-09-27] MEDS: ULTRAM PO SCH ×6 (01:08→20:00)
[2019-09-27] MEDS: ZOSYN 3.375 GM 3.375 GM in NS 100ML 100 ML IV SCH ×4 (03:58→21:03)
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
[2019-09-27] MEDS: TYLENOL PO SCH ×3 (05:30→16:23)
[2019-09-27] MEDS: LACTATED RINGERS 1,000 ML IV SCH ×2 (06:27→15:17)
[2019-09-27] MEDS: SYNTHROID PO SCH (06:30)
[2019-09-27] MEDS ORDERED: SUBLIMAZE ONE (06:54)
[2019-09-27] MEDS ORDERED: DIPRIVAN IV ONE (06:54)
[2019-09-27] MEDS ORDERED: LIDOCAINE 2% VIAL ONE (06:54)
[2019-09-27] MEDS ORDERED: ZOFRAN 4 MG/2 ML VIAL ONE (06:55)
[2019-09-27] MEDS: HUMULIN R SQ SCH ×4 (07:30→21:00)
[2019-09-27] MEDS ORDERED: NS 100ML 100 ML IV ONE (08:06)
[2019-09-27] MEDS: PROTONIX PO SCH ×2 (09:00→09:53)
[2019-09-27] MEDS: COLACE PO SCH ×3 (09:00→20:36)
[2019-09-27] MEDS: PEPCID PO SCH ×3 (09:00→20:36)
[2019-09-27] MEDS ORDERED: ZOFRAN 4 MG/2 ML VIAL IV PRN (09:00)
[2019-09-27] MEDS: NEURONTIN PO SCH ×3 (09:00→20:36)
[2019-09-27] MEDS: FLOMAX PO SCH ×2 (09:00→09:53)
[2019-09-27] MEDS: MUCINEX PO SCH ×3 (09:00→20:37)
--- NOTE | 2019-09-27 09:22 | OPH ---
DATE OF SURGERY: PREOPERATIVE DIAGNOSIS: History of dysphagia. POSTOPERATIVE DIAGNOSES: 1. Mild gastritis with polyps. 2. Hiatal hernia. 3. Thickened mucus secretions associated with retroglottic folds. SURGEON: Rell Knight D.O. STRATEGIC MARKETING ASSOCIATE: OR staff. ANESTHESIA: Total intravenous anesthesia by Tylor Skinner CRNA. PROCEDURES PERFORMED: Esophagogastroduodenoscopy with biopsy. SPECIMENS: Gastric mucosa to path. ESTIMATED BLOOD LOSS: 3 mL. COUNTS: At the completion of the case, the counts were correct per OR staff. DESCRIPTION OF PROCEDURE: The patient is a 79-year-old male known from previous evaluation. Prior to procedure, informed consent was obtained. At time of procedure, he was taken to the operative suite and placed in supine position. After time-out was, he remained in supine position because of his recent hip surgery. After adequate sedation, esophagogastroduodenoscope was advanced transorally. There was noted to be thickened mucus associated with the upper airway and the camera was advanced to the right side and posteriorly to the esophagus and further distally to the second portion of duodenum. Once the duodenum was adequately visualized, camera was slowly withdrawn to facilitate visualization of duodenal bulb and the pylorus. The pylorus and distal stomach showed minimal gastritis. There was noted to be some polyps in the body of the stomach and biopsies were obtained. The retroflexed maneuver was performed. The cardia has a small hiatal hernia. Fundus is within normal limits. Camera was reduced. Hemostasis was noted to be good from biopsy site. Stomach was decompressed. Scope was slowly withdrawn. Distal, mid and proximal esophagus were essentially within normal limits aside from some mucus that was identified. At the level of the vocal cords, though they are clear, there is a large plug of mucus, which the patient appears to have not been able to clear. It was removed with suction using the scope. Once it was removed, the camera was readvanced to the level of cords and they appear to be cleared. Camera was removed, procedure was discontinued. The patient tolerated this procedure well. There were no acute complications noted. Rell Knight DO DR: JANIS/juana JOB# [id number] CC: Meek Vasquez M.D.
--- NOTE | 2019-09-27 09:30 | NUR ---
refusal Pt REFUSED HIS MORNING MEDS, COMPLAINING ABOUT NOT ABLE TO SWALLOW, NOTIFIED, IN [place]ENCE DR LI HE SWALLOWED SOTALOL SCHEDULED, AND STATES FEELING DIFFICULTY SWALLOWING, Pt AND DAUGHTER REQUESTED TO CRUSH MEDS AND GIVE WITH PUDDING,OFFERED CRUSHED MED WITH [facility], Pt STATES HE GONNA TAKE IT SLOWLY, BUT Pt KEEP COMPLAINING HE CAN NOT SWALLOW, NOTIFIED DR LI RECEIVED AN ORDER FOR SWALLOW EVAL, AND TO NPO UNTILL SWALLOW EVAL. THIS NURSE CALLED LEXI RAMAN, PER LEXI PAULSON SHE WILL BNE YOHAN TO COME IN THE EVENING TODAY OR TOMORROW FOR SWALLOW EVAL, IF Pt IS ABLE TO SWALLOW FLUIDS AND PUDDING ETC HE DOES NOT HAVE TO BE NPO UNTILL Pt GETS SWALLOW EVAL. THIS NURSE NOTIFIED DAUGHTER OF Pt SHE VERBALIZED UNDERSTANDING. CHARGE NURSE GALINA RN AWARE OF THE SITUATION.
--- NOTE | 2019-09-27 09:47 | PRM.PN ---
Subjective Subjective Date: Sep 27, 2019 Time: 09:30 Subjective Patient had choking episode yesterday and felt something stuck in throat. CXR reviewed, BATT MACHINE OPERATOR consulted and has evaluated. Surgery consulted and EGD performed this AM. Patient found to have mucous plug that was removed. Patient still having irritation. Diet has been started. No hypoxia, no chest pain, no further tachycardic episodes. Patient History: Cerebrovascular disorder G8 BROTHER, , Age:89 Congestive heart failure G8 BROTHER, , Age:59 Diabetes mellitus 33 FATHER, , Age:86 No known health problems G8 SISTER G8 SISTER V19 CHILD V19 CHILD V19 CHILD Parkinson's disease G8 BROTHER, , Age:81 No Family History of: Alzheimer's disease Asthma Chronic obstructive pulmonary disease Diabetes insipidus Hypertension VTE VTE Risk Total Score: 5 VTE Risk Score VTE Risk: Score 0-1 = Low Risk (Aggressive mobilization; early ambulation; no VTE prophylaxis required) Score 2: Moderate Risk (Intermittent/Pneumatic Compression Device OR Lovenox/Heparin/Coumadin) Score 3-4: High Risk (Intermittent/Pneumatic Compression Device AND Lovenox/Heparin/Coumadin) Score > or =5: Highest Risk (Intermittent/Pneumatic Compression Device AND Lovenox/Heparin/Coumadin) Review of Systems Allergies: Coded Allergies: No Known Allergies (Unverified , 09/17/19) Scheduled Gabapentin (Gabapentin), 1 CAP PO BID, (Reported) Levothyroxine Sodium (Levothyroxine Sodium), 1 TAB PO DAILY, (Reported) Pantoprazole Sodium (Pantoprazole Sodium), 1 TAB PO DAILY, (Reported) Ranitidine Hcl (Ranitidine Hcl), 1 TAB PO BID, (Reported) Rivaroxaban (Xarelto), 1 TAB PO HS, (Reported) Rosuvastatin 5MG (Crestor 5MG), 1 TAB PO DAILY, (Reported) Sotalol Hcl (Sotalol), 1 TAB PO BID, (Reported) Tamsulosin Hcl (Flomax), 1 CAP PO DAILY, (Reported) Scheduled PRN Levalbuterol Tartrate (Xopenex Hfa), 15 GM IH Q4 PRN for dyspnea Tramadol Hcl (Tramadol Hcl), 50 MG PO Q4HR PRN for PAIN Objective Vitals and I/O Vital Sign - Last 24 Hours 09/22/19 09/22/19 09/22/19 09/22/19 11:44 11:44 13:07 13:17 Temp 97.0 Pulse 54 51 52 Resp 16 16 16 B/P (MAP) 155/99 (117) 125/84 (98) 140/67 (91) Pulse Ox 97 97 94 O2 Delivery Room Air Room Air Room Air Room Air 09/22/19 09/22/19 09/22/19 09/22/19 13:28 17:25 17:25 17:35 Temp 97.1 97.1 Pulse 55 76 69 Resp 16 16 16 B/P (MAP) 113/83 (93) 136/79 (98) 135/83 (100) Pulse Ox 98 97 96 O2 Delivery Room Air Non-Rebreather Non-Rebreather O2 Flow Rate 15 15 15 09/22/19 09/22/19 09/22/19 09/22/19 17:45 17:55 18:05 18:15 Temp 97.1 97.1 97.1 97.1 Pulse 65 67 70 70 Resp 16 16 16 16 B/P (MAP) 141/90 (107) 135/81 (99) 128/92 (104) 134/90 (105) Pulse Ox 97 97 94 96 O2 Delivery Non-Rebreather Nasal Canula Nasal Canula Nasal Canula O2 Flow Rate 15 3 3 3 09/22/19 09/22/19 09/22/19 09/22/19 18:25 20:00 20:38 21:00 Temp 97.1 97.7 97.7 Pulse 73 74 77 Resp 16 18 16 B/P (MAP) 148/78 (101) 137/68 (91) 126/70 (88) Pulse Ox 96 O2 Delivery Nasal Canula Nasal Canula Nasal Cannula Nasal Canula O2 Flow Rate 32 2.00 2.00 2.00 09/23/19 09/23/19 09/23/19 09/23/19 00:00 04:42 07:52 08:34 Temp 97.7 97.2 97.3 Pulse 68 66 69 69 Resp 16 18 18 18 B/P (MAP) 112/64 (80) 123/90 (101) 112/74 (87) Pulse Ox 92 96 O2 Delivery Nasal Canula Nasal Canula Nasal Canula Nasal Cannula O2 Flow Rate 2.00 2.00 2.00 1.50 FiO2 26 09/23/19 08:36 Resp 18 Pulse Ox 96 Intake and Output 09/22/19 09/22/19 09/23/19 15:00 23:00 07:00 Intake Total 200 ml 2400 ml 200 ml Output Total 190 ml 800 ml Balance 200 ml 2210 ml -600 ml General: Alert, Oriented X3, Cooperative, No acute distress HEENT: Atraumatic, PERRLA Neck: Supple, No JVD Lungs: Clear to auscultation, Normal air movement Heart: Normal S1, Normal S2 Abdomen: Normal bowel sounds, Soft, No tenderness Extremities: No clubbing, No cyanosis, No edema Skin: No rashes, No breakdown Neuro: Normal gait, Normal speech, Strength at 5/5 X4 ext, Normal tone, Sensation intact, Cranial nerves 3-12 NL Psych/Mental Status: Mental status NL, Other (patient is anxious) All Results(Lab/Rad) Laboratory Tests Test 09/22/19 17:29 09/23/19 04:45 Bedside Glucose 164 White Blood Count 13.1 10^3/uL Red Blood Count 3.75 10^6/uL Hemoglobin 12.8 g/dL Hematocrit 38.4 % Mean Corpuscular Volume 102.4 fL Mean Corpuscular Hemoglobin 34.1 pg Mean Corpuscular Hemoglobin Concent 33.3 g/dL Red Cell Distribution Width 13.5 % Platelet Count 219 10^3/uL Mean Platelet Volume 10.3 fL Sodium Level 138 mmol/L Potassium Level 4.5 mmol/L Chloride Level 103.0 mmol/L Carbon Dioxide Level 26.5 mmol/L Glucose Level 209 mg/dL Blood Urea Nitrogen 17 mg/dL Creatinine 1.34 mg/dL Calcium Level 8.5 mg/dL Anion Gap 13.0 Estimated GFR () 62.5 BUN/Creatinine Ratio 12.0 Current Medications Medications (Trade) Dose Ordered Sig/Eli Route PRN Reason Start Time Stop Time Status Last Admin Dose Admin Mupirocin (Bactroban Ointment) 1 gm OT ONCE TP 09/22/19 06:00 09/22/19 12:35 DC 09/22/19 12:28 Sodium Chloride 100 ml @ ud STK-MED ONCE IV 09/22/19 05:30 09/22/19 05:32 DC Cefazolin Sodium (Ancef) 1 gm STK-MED ONCE .ROUTE 09/22/19 05:30 09/22/19 05:32 DC Neostigmine Methylsulfate (Neostigmine) 10 mg STK-MED ONCE .ROUTE 09/22/19 11:04 09/22/19 11:05 DC Ondansetron HCl (Zofran 4 Mg/2 ml Vial) 4 mg STK-MED ONCE .ROUTE 09/22/19 11:04 09/22/19 11:05 DC Rocuronium [place] (Zemuron) 100 mg STK-MED ONCE IV 09/22/19 11:04 09/22/19 11:06 DC Hydromorphone HCl (Dilaudid) 2 mg STK-MED ONCE .ROUTE 09/22/19 11:05 09/22/19 11:06 DC Fentanyl Citrate (Sublimaze) 100 mcg STK-MED ONCE .ROUTE 09/22/19 11:05 09/22/19 11:06 DC Propofol (Diprivan) 200 mg STK-MED ONCE IV 09/22/19 11:05 09/22/19 11:06 DC Bupivacaine HCl (Sensorcaine 0.5% Vial) 5 mg STK-MED ONCE .ROUTE 09/22/19 11:06 09/22/19 11:07 DC Lidocaine HCl (Lidocaine 2% Vial) 500 mg STK-MED ONCE .ROUTE 09/22/19 11:06 09/22/19 11:08 DC Rocuronium [place] (Zemuron) 100 mg STK-MED ONCE IV 09/22/19 11:22 09/22/19 11:23 DC Acetaminophen (Tylenol) 1,000 mg OT PO 09/22/19 11:30 09/22/19 12:38 DC 09/22/19 12:29 Gabapentin (Neurontin) 400 mg OT PO 09/22/19 11:30 09/22/19 12:36 DC 09/22/19 12:29 Acetaminophen (Tylenol) 1,000 mg Q6H PO 09/22/19 11:30 10/22/19 11:29 Gabapentin (Neurontin) 400 mg Q24HRS PO 09/23/19 11:30 09/23/19 11:31 Gabapentin (Neurontin) 300 mg BID PO 09/22/19 21:00 10/22/19 20:59 09/23/19 08:42 Levothyroxine Sodium (Synthroid) 50 mcg ACB PO 09/23/19 06:30 10/23/19 06:29 09/23/19 05:33 Pantoprazole Sodium (Protonix) 40 mg DAILY PO 09/23/19 09:00 10/23/19 08:59 09/23/19 08:42 Sotalol HCl (Betapace) 80 mg BID PO 09/22/19 21:00 10/22/19 20:59 09/23/19 08:42 Tamsulosin HCl (Flomax) 0.4 mg DAILY PO 09/23/19 09:00 10/23/19 08:59 09/23/19 08:42 Famotidine (Pepcid) 20 mg BID PO 09/22/19 21:00 10/22/19 20:59 09/23/19 08:42 Rivaroxaban (Xarelto) 20 mg HS PO 09/22/19 21:00 09/22/19 17:40 DC Atorvastatin Calcium (Lipitor) 20 mg HS PO 09/22/19 21:00 10/22/19 20:59 09/22/19 22:05 Tramadol HCl (Ultram) 50 mg Q6H PO 09/22/19 12:00 09/22/19 17:40 DC Tramadol HCl (Ultram) 100 mg Q6H PRN PO PAIN 7 - 10 09/22/19 12:00 09/22/19 17:40 DC Zolpidem Tartrate (Ambien) 5 mg HS PRN PO INSOMNIA 09/22/19 12:00 10/22/19 11:59 Docusate Sodium (Colace) 100 mg DAILY PO 09/23/19 09:00 10/23/19 08:59 09/23/19 08:42 Throat Lozenges (Cepacol Sore Throat Lozenge) 1 each PRN PRN MM SORE THROAT 09/22/19 12:00 10/22/19 11:59 Famotidine (Pepcid) 20 mg DAILY PO 09/23/19 09:00 09/22/19 20:47 DC Cefazolin Sodium/ Dextrose (Ancef 2 Gm/D5W 50ml) 2 gm Q8 IV 09/22/19 14:00 09/22/19 12:46 DC Tranexamic Acid (Tranexamic Acid) 1,000 mg STK-MED ONCE IV 09/22/19 12:16 09/22/19 12:17 DC Cefazolin Sodium 2 gm/Sodium Chloride 100 ml @ 100 mls/hr Q8 IV 09/22/19 14:00 09/23/19 06:59 DC 09/23/19 05:33 Hydromorphone HCl (Dilaudid) 0.2 mg Q5M PRN IV PAIN 1-3 09/22/19 14:00 09/22/19 20:46 DC Fentanyl Citrate (Sublimaze) 25 mcg Q5MIN PRN IV PAIN 09/22/19 14:00 09/22/19 20:48 DC Ondansetron HCl (Zofran 4 Mg/2 ml Vial) 4 mg OT ONCE IV 09/22/19 14:00 09/22/19 14:01 DC 09/22/19 17:56 Promethazine HCl (Phenergan) 6.25 mg PRN PRN IV NAUSEA / VOMITING 09/22/19 14:00 09/22/19 20:47 DC Labetalol HCl (Trandate) 5 mg Q5MIN PRN IV HYPERTENSION 09/22/19 14:00 09/22/19 20:47 DC Hydralazine HCl (Apresoline) 5 mg Q5MIN PRN IV HYPERTENSION 09/22/19 14:00 09/22/19 20:45 DC Sodium Chloride (Sodium Chloride) 1,000 ml STK-MED ONCE IR 09/22/19 13:52 09/22/19 13:53 DC Sterile Water (Water) 1,000 ml STK-MED ONCE .ROUTE 09/22/19 13:52 09/22/19 13:53 DC Sodium Chloride 100 ml @ ud STK-MED ONCE IV 09/22/19 13:52 09/22/19 13:53 DC Sodium Chloride 250 ml @ ud STK-MED ONCE IV 09/22/19 13:52 09/22/19 13:54 DC Sodium Chloride (NS 3000ml Irr) 3,000 ml STK-MED ONCE IR 09/22/19 13:52 09/22/19 13:54 DC Rivaroxaban (Xarelto) 20 mg HS PO 09/23/19 18:00 1/9/20 17:59 Tramadol HCl (Ultram) 50 mg Q4HR PO 09/22/19 18:00 10/22/19 11:59 09/22/19 22:04 Tramadol HCl (Ultram) 100 mg Q4HR PRN PO PAIN MODERATE 09/22/19 18:00 10/22/19 11:59 Hydromorphone HCl (Dilaudid) 2 mg Q4H PRN IV PAIN 7 - 10 09/22/19 18:00 10/22/19 17:59 Ephedrine Sulfate (Ephedrine Sulfate) 50 mg STK-MED ONCE .ROUTE 09/22/19 17:38 09/22/19 17:40 DC Ondansetron HCl (Zofran 4 Mg/2 ml Vial) 4 mg STK-MED ONCE .ROUTE 09/22/19 17:54 09/22/19 17:56 DC Famotidine (Pepcid) 20 mg STK-MED ONCE IV 09/22/19 18:01 09/22/19 18:03 DC Famotidine (Pepcid) 20 mg STAT STAT IV 09/22/19 18:03 09/22/19 20:44 DC 09/22/19 18:12 Metoclopramide HCl (Reglan) 10 mg STAT STAT IV 09/22/19 18:04 09/22/19 20:44 DC 09/22/19 18:12 Course Sepsis Screening Results: Posi: POSITIVE Sepsis Qualifier/Stage: SEPSIS RISK Vitals & review Data Vital Sign - Last 24 Hours 09/22/19 09/22/19 09/22/19 09/22/19 11:44 11:44 13:07 13:17 Temp 97.0 Pulse 54 51 52 Resp 16 16 16 B/P (MAP) 155/99 (117) 125/84 (98) 140/67 (91) Pulse Ox 97 97 94 O2 Delivery Room Air Room Air Room Air Room Air 09/22/19 09/22/19 09/22/19 09/22/19 13:28 17:25 17:25 17:35 Temp 97.1 97.1 Pulse 55 76 69 Resp 16 16 16 B/P (MAP) 113/83 (93) 136/79 (98) 135/83 (100) Pulse Ox 98 97 96 O2 Delivery Room Air Non-Rebreather Non-Rebreather O2 Flow Rate 15 15 15 09/22/19 09/22/19 09/22/19 09/22/19 17:45 17:55 18:05 18:15 Temp 97.1 97.1 97.1 97.1 Pulse 65 67 70 70 Resp 16 16 16 16 B/P (MAP) 141/90 (107) 135/81 (99) 128/92 (104) 134/90 (105) Pulse Ox 97 97 94 96 O2 Delivery Non-Rebreather Nasal Canula Nasal Canula Nasal Canula O2 Flow Rate 15 3 3 3 09/22/19 09/22/19 09/22/19 09/22/19 18:25 20:00 20:38 21:00 Temp 97.1 97.7 97.7 Pulse 73 74 77 Resp 16 18 16 B/P (MAP) 148/78 (101) 137/68 (91) 126/70 (88) Pulse Ox 96 O2 Delivery Nasal Canula Nasal Canula Nasal Cannula Nasal Canula O2 Flow Rate 32 2.00 2.00 2.00 09/23/19 09/23/19 09/23/19 09/23/19 00:00 04:42 07:52 08:34 Temp 97.7 97.2 97.3 Pulse 68 66 69 69 Resp 16 18 18 18 B/P (MAP) 112/64 (80) 123/90 (101) 112/74 (87) Pulse Ox 92 96 O2 Delivery Nasal Canula Nasal Canula Nasal Canula Nasal Cannula O2 Flow Rate 2.00 2.00 2.00 1.50 FiO2 26 09/23/19 08:36 Resp 18 Pulse Ox 96 Intake and Output 09/22/19 09/22/19 09/23/19 15:00 23:00 07:00 Intake Total 200 ml 2400 ml 200 ml Output Total 190 ml 800 ml Balance 200 ml 2210 ml -600 ml Laboratory Tests Test 09/22/19 17:29 09/23/19 04:45 Bedside Glucose 164 White Blood Count 13.1 10^3/uL Red Blood Count 3.75 10^6/uL Hemoglobin 12.8 g/dL Hematocrit 38.4 % Mean Corpuscular Volume 102.4 fL Mean Corpuscular Hemoglobin 34.1 pg Mean Corpuscular Hemoglobin Concent 33.3 g/dL Red Cell Distribution Width 13.5 % Platelet Count 219 10^3/uL Mean Platelet Volume 10.3 fL Sodium Level 138 mmol/L Potassium Level 4.5 mmol/L Chloride Level 103.0 mmol/L Carbon Dioxide Level 26.5 mmol/L Glucose Level 209 mg/dL Blood Urea Nitrogen 17 mg/dL Creatinine 1.34 mg/dL Calcium Level 8.5 mg/dL Anion Gap 13.0 Estimated GFR () 62.5 BUN/Creatinine Ratio 12.0 Current Medications Medications (Trade) Dose Ordered Sig/Eli PRN Reason Start Time Stop Time Status Last Admin Acetaminophen (Tylenol) 1,000 mg Q6H 09/22/19 11:30 10/22/19 11:29 Atorvastatin Calcium (Lipitor) 20 mg HS 09/22/19 21:00 10/22/19 20:59 09/22/19 22:05 Docusate Sodium (Colace) 100 mg DAILY 09/23/19 09:00 10/23/19 08:59 09/23/19 08:42 Famotidine (Pepcid) 20 mg BID 09/22/19 21:00 10/22/19 20:59 09/23/19 08:42 Gabapentin (Neurontin) 300 mg BID 09/22/19 21:00 10/22/19 20:59 09/23/19 08:42 Gabapentin (Neurontin) 400 mg Q24HRS 09/23/19 11:30 09/23/19 11:31 Hydromorphone HCl (Dilaudid) 2 mg Q4H PRN PAIN 7 - 10 09/22/19 18:00 10/22/19 17:59 Levothyroxine Sodium (Synthroid) 50 mcg ACB 09/23/19 06:30 10/23/19 06:29 09/23/19 05:33 Pantoprazole Sodium (Protonix) 40 mg DAILY 09/23/19 09:00 10/23/19 08:59 09/23/19 08:42 Rivaroxaban (Xarelto) 20 mg HS 09/23/19 18:00 10/23/19 17:59 Sotalol HCl (Betapace) 80 mg BID 09/22/19 21:00 10/22/19 20:59 09/23/19 08:42 Tamsulosin HCl (Flomax) 0.4 mg DAILY 09/23/19 09:00 10/23/19 08:59 09/23/19 08:42 Throat Lozenges (Cepacol Sore Throat Lozenge) 1 each PRN PRN SORE THROAT 09/22/19 12:00 10/22/19 11:59 Tramadol HCl (Ultram) 50 mg Q4HR 09/22/19 18:00 10/22/19 11:59 09/22/19 22:04 Tramadol HCl (Ultram) 100 mg Q4HR PRN PAIN MODERATE 09/22/19 18:00 10/22/19 11:59 Zolpidem Tartrate (Ambien) 5 mg HS PRN INSOMNIA 09/22/19 12:00 10/22/19 11:59 LEVEL 1 SEPSIS INFECTION CRITE: ABX Therapy LEVEL 2-SIRS (LIST ALL THAT AP: None/Not assessed Cardiovascular Evidence: Not Assessed or None Hematologic Evidence: None/Not assessed Hepatic Evidence: None/Not assessed Metabolic Evidence: None/Not assessed Neurological Evidence: None/Not assessed Respiratory Evidence: Need for O2 to keep>90% Renal Evidence: None/Not assessed O2 Sat by Pulse Oximetry: 97 Oxygen Flow Rate: 2 Assessment/Plan Assessment/Plan Assessment/Plan 1. OA of Left Hip: s/p Left Hip Arthroplasty POD#6. Cont pain control, PT. Cleared by Ortho for d/c. 2. Afib: stable, cont Betapace/Xarelto. 3. BPH: cont Tamsulosin 4. Hypothyroidism: cont Synthroid 5. DM: f/u with PCP for further treatment recommendations. PCP had taken off medications. We will not restart. 6. PPx: Xarelto, Pepcid 7. Dizziness: resolved. 8. KRISTEN: resolved. 9. COPD/Hypoxia: d/c to home on Home O2. 10. Dysphagia: BATT MACHINE OPERATOR has evaluated and offered recs. Surgery consulted and EGD performed this AM. Mucous plug removed. Increase diet as tolerated. 11. Atelectasis v. Infiltrate: CXR reviewed. Will repeat in AM. Cont IV abx currently. Concern for possible aspiration. OMI BORJA MD Sep 27, 2019 09:47
[2019-09-27] MEDS: BETAPACE PO SCH ×2 (09:53→20:37)
[2019-09-27] MEDS ORDERED: TRANSDERM-SCOP TD STA (13:17)
[2019-09-27] MEDS ORDERED: HALDOL IM ONE (20:30)
[2019-09-27] MEDS: XARELTO PO SCH (20:36)
[2019-09-27] MEDS: LIPITOR PO SCH (20:37)
[2019-09-27] MEDS ORDERED: BISAC-EVAC RC ONE (23:30)
[2019-09-27] MEDS ORDERED: MIRALAX PO ONE (23:30)
[2019-09-28] MEDS: TYLENOL PO SCH ×3 (00:01→11:30)
[2019-09-28] MEDS: ULTRAM PO SCH ×5 (00:02→12:00)
[2019-09-28] MEDS: ZOSYN 3.375 GM 3.375 GM in NS 100ML 100 ML IV SCH ×2 (02:36→08:17)
[2019-09-28 04:00] VITALS: BP 141/83
[2019-09-28 05:25] LABS: BASOPHIL % 0.1 % (0.0-0.2); EOSINOPHIL # 0.1 10^3/uL (0.0-0.2); EOSINOPHIL % 0.9 % (0.0-5.0); HEMOGLOBIN 10.4 g/dL (13.9-16.3); LYMPHOCYTES # 0.9 10^3/uL (1.0-4.8); LYMPHOCYTES % 13.4 % (24.0-44.0); MEAN CELL HGB 33.7 pg (26-34); MEAN CELL HGB CONCENTRATION 32.8 g/dL (33-37); MEAN CORP VOLUME 102.6 fL (78-100); MONOCYTES # 0.9 10^3/uL (0.3-0.8); MONOCYTES % 12.1 % (5.0-12.0); NEUTROPHIL # 5.1 10^3/uL (1.8-7.7); NEUTROPHILS % 72.9 % (41.0-85.0); RED CELL DISTRIBUTION WIDTH 13.6 % (11.5-14.5)
[2019-09-28 05:40] LABS: CALCIUM 8.6 mg/dL (8.4-10.5); CARBON DIOXIDE 27.3 mmol/L (20.0-32)
[2019-09-28] MEDS: SYNTHROID PO SCH (06:14)
[2019-09-28] MEDS: HUMULIN R SQ SCH ×2 (07:15→11:30)
[2019-09-28 07:16] VITALS: BP 141/80
--- NOTE | 2019-09-28 07:25 | DIREP ---
PROCEDURE:CHEST 1 VIEW COMPARISON:[facility], CR, XRAY CHEST SINGLE VW, 09/26/2019, 11:39 AM. INDICATIONS:atelectasis v. infiltrate FINDINGS: LUNGS/PLEURA:Stable retrocardiac left basilar airspace disease, suggestive of infiltrate. No large effusion. VASCULATURE:Normal. Unremarkable pulmonary vasculature. CARDIAC:Borderline to mild cardiomegaly. MEDIASTINUM:Normal. No visible mass or adenopathy. BONES:Degenerative changes bilateral acromioclavicular joints and glenohumeral joints. OTHER:Negative. CONCLUSION:Stable left retrocardiac airspace disease, suspicious for infiltrate. Dictated by: Bobby Cesar DO on 09/28/2019 at 07:23 AM
[2019-09-28] MEDS: LACTATED RINGERS 1,000 ML IV SCH (08:16)
[2019-09-28] MEDS: BETAPACE PO SCH (08:56)
[2019-09-28] MEDS: PEPCID PO SCH (08:56)
[2019-09-28] MEDS: PROTONIX PO SCH (08:56)
[2019-09-28] MEDS: FLOMAX PO SCH (08:56)
[2019-09-28] MEDS: COLACE PO SCH (08:56)
[2019-09-28] MEDS: MUCINEX PO SCH (08:57)
[2019-09-28] MEDS: NEURONTIN PO SCH (08:57)
[2019-09-28] MEDS ORDERED: DULCOLAX EC TABLET PO STA (09:18)
--- NOTE | 2019-09-28 10:01 | NUR ---
Swallow eval: Patient able to tolerate PO and medications with minimal anxiety reported by patient, no overt s/s of aspiration or dysphagia. Patient demo's frequent belching with PO intake. Recommend patient to have follow up for imaging/assessment of esophageal and pharyngeal function due to his hx of esophageal motility and spasms with recent worsening s/s. Patient and family educated re: s/s of aspiration, concerns for esophageal function, compensatory strategies to allow for adequate nutrition and hydration after discharge. Patient and family verbalized understanding of recommendations. Signed: 09/28/19 at 1013 by Tracy Robbins MS,[facility]
--- NOTE | 2019-09-28 11:34 | DIREP ---
PROCEDURE:XR ABDOMEN 2 VIEWS COMPARISON:None. INDICATIONS:Fecal Stasis TECHNIQUE:Flat and upright views of the abdomen are provided. FINDINGS: BOWEL GAS PATTERN:Paucity of gas. No evidence of obstruction CALCIFICATIONS:None significant. LUNG BASES:Clear. BONES:Left femoral acetabular arthroplasty. Lower lumbar spine degenerative changes. OTHER:No additional findings. CONCLUSION:Paucity of bowel gas. No evidence of bowel obstruction. Dictated by: Bobby Cesar DO on 09/28/2019 at 11:32 AM
--- NOTE | 2019-09-28 13:38 | PRM.PN ---
Subjective Subjective Date: Sep 28, 2019 Time: 13:37 Subjective Hip pain ok Fully ambulatory Afebrile Dressing intact OK to dc when ok with Dr Vasquez Patient History: Cerebrovascular disorder G8 BROTHER, , Age:91 Congestive heart failure G8 BROTHER, , Age:59 Diabetes mellitus 33 FATHER, , Age:86 No known health problems G8 SISTER G8 SISTER V19 CHILD V19 CHILD V19 CHILD Parkinson's disease G8 BROTHER, , Age:81 No Family History of: Alzheimer's disease Asthma Chronic obstructive pulmonary disease Diabetes insipidus Hypertension VTE VTE Risk Total Score: 5 VTE Risk Score VTE Risk: Score 0-1 = Low Risk (Aggressive mobilization; early ambulation; no VTE prophylaxis required) Score 2: Moderate Risk (Intermittent/Pneumatic Compression Device OR Lovenox/Heparin/Coumadin) Score 3-4: High Risk (Intermittent/Pneumatic Compression Device AND Lovenox/Heparin/Coumadin) Score > or =5: Highest Risk (Intermittent/Pneumatic Compression Device AND Lovenox/Heparin/Coumadin) Review of Systems Allergies: Coded Allergies: No Known Allergies (Unverified , 09/17/19) Scheduled Gabapentin (Gabapentin), 1 CAP PO BID, (Reported) Levothyroxine Sodium (Levothyroxine Sodium), 1 TAB PO DAILY, (Reported) Pantoprazole Sodium (Pantoprazole Sodium), 1 TAB PO DAILY, (Reported) Ranitidine Hcl (Ranitidine Hcl), 1 TAB PO BID, (Reported) Rivaroxaban (Xarelto), 1 TAB PO HS, (Reported) Rosuvastatin 5MG (Crestor 5MG), 1 TAB PO DAILY, (Reported) Sotalol Hcl (Sotalol), 1 TAB PO BID, (Reported) Tamsulosin Hcl (Flomax), 1 CAP PO DAILY, (Reported) Scheduled PRN Levalbuterol Tartrate (Xopenex Hfa), 15 GM IH Q4 PRN for dyspnea Tramadol Hcl (Tramadol Hcl), 50 MG PO Q4HR PRN for PAIN Objective Vitals and I/O Vital Sign - Last 24 Hours 09/22/19 09/22/19 09/22/19 09/22/19 11:44 11:44 13:07 13:17 Temp 97.0 Pulse 54 51 52 Resp 16 16 16 B/P (MAP) 155/99 (117) 125/84 (98) 140/67 (91) Pulse Ox 97 97 94 O2 Delivery Room Air Room Air Room Air Room Air 09/22/19 09/22/19 09/22/19 09/22/19 13:28 17:25 17:25 17:35 Temp 97.1 97.1 Pulse 55 76 69 Resp 16 16 16 B/P (MAP) 113/83 (93) 136/79 (98) 135/83 (100) Pulse Ox 98 97 96 O2 Delivery Room Air Non-Rebreather Non-Rebreather O2 Flow Rate 15 15 15 09/22/19 09/22/19 09/22/19 09/22/19 17:45 17:55 18:05 18:15 Temp 97.1 97.1 97.1 97.1 Pulse 65 67 70 70 Resp 16 16 16 16 B/P (MAP) 141/90 (107) 135/81 (99) 128/92 (104) 134/90 (105) Pulse Ox 97 97 94 96 O2 Delivery Non-Rebreather Nasal Canula Nasal Canula Nasal Canula O2 Flow Rate 15 3 3 3 09/22/19 09/22/19 09/22/19 09/22/19 18:25 20:00 20:38 21:00 Temp 97.1 97.7 97.7 Pulse 73 74 77 Resp 16 18 16 B/P (MAP) 148/78 (101) 137/68 (91) 126/70 (88) Pulse Ox 96 O2 Delivery Nasal Canula Nasal Canula Nasal Cannula Nasal Canula O2 Flow Rate 32 2.00 2.00 2.00 09/23/19 09/23/19 09/23/19 09/23/19 00:00 04:42 07:52 08:34 Temp 97.7 97.2 97.3 Pulse 68 66 69 69 Resp 16 18 18 18 B/P (MAP) 112/64 (80) 123/90 (101) 112/74 (87) Pulse Ox 92 96 O2 Delivery Nasal Canula Nasal Canula Nasal Canula Nasal Cannula O2 Flow Rate 2.00 2.00 2.00 1.50 FiO2 26 09/23/19 08:36 Resp 18 Pulse Ox 96 Intake and Output 0 09/22/19 09/22/19 09/23/19 15:00 23:00 07:00 Intake Total 200 ml 2400 ml 200 ml Output Total 190 ml 800 ml Balance 200 ml 2210 ml -600 ml General: Alert, Oriented X3, Cooperative, No acute distress HEENT: Atraumatic, PERRLA Neck: Supple, No JVD Lungs: Clear to auscultation, Normal air movement Heart: Normal S1, Normal S2 Abdomen: Normal bowel sounds, Soft, No tenderness Extremities: No clubbing, No cyanosis, No edema Skin: No rashes, No breakdown Neuro: Normal gait, Normal speech, Strength at 5/5 X4 ext, Normal tone, Sensation intact, Cranial nerves 3-12 NL Psych/Mental Status: Mental status NL, Other (patient is anxious) All Results(Lab/Rad) Laboratory Tests Test 09/22/19 17:29 09/23/19 04:45 Bedside Glucose 164 White Blood Count 13.1 10^3/uL Red Blood Count 3.75 10^6/uL Hemoglobin 12.8 g/dL Hematocrit 38.4 % Mean Corpuscular Volume 102.4 fL Mean Corpuscular Hemoglobin 34.1 pg Mean Corpuscular Hemoglobin Concent 33.3 g/dL Red Cell Distribution Width 13.5 % Platelet Count 219 10^3/uL Mean Platelet Volume 10.3 fL Sodium Level 138 mmol/L Potassium Level 4.5 mmol/L Chloride Level 103.0 mmol/L Carbon Dioxide Level 26.5 mmol/L Glucose Level 209 mg/dL Blood Urea Nitrogen 17 mg/dL Creatinine 1.34 mg/dL Calcium Level 8.5 mg/dL Anion Gap 13.0 Estimated GFR () 62.5 BUN/Creatinine Ratio 12.0 Current Medications Medications (Trade) Dose Ordered Sig/Eli Route PRN Reason Start Time Stop Time Status Last Admin Dose Admin Mupirocin (Bactroban Ointment) 1 gm OT ONCE TP 09/22/19 06:00 09/22/19 12:35 DC 09/22/19 12:28 Sodium Chloride 100 ml @ ud STK-MED ONCE IV 09/22/19 05:30 09/22/19 05:32 DC Cefazolin Sodium (Ancef) 1 gm STK-MED ONCE .ROUTE 09/22/19 05:30 09/22/19 05:32 DC Neostigmine Methylsulfate (Neostigmine) 10 mg STK-MED ONCE .ROUTE 09/22/19 11:04 09/22/19 11:05 DC Ondansetron HCl (Zofran 4 Mg/2 ml Vial) 4 mg STK-MED ONCE .ROUTE 09/22/19 11:04 09/22/19 11:05 DC Rocuronium Paxton (Zemuron) 100 mg STK-MED ONCE IV 09/22/19 11:04 09/22/19 11:06 DC Hydromorphone HCl (Dilaudid) 2 mg STK-MED ONCE .ROUTE 09/22/19 11:05 09/22/19 11:06 DC Fentanyl Citrate (Sublimaze) 100 mcg STK-MED ONCE .ROUTE 09/22/19 11:05 09/22/19 11:06 DC Propofol (Diprivan) 200 mg STK-MED ONCE IV 09/22/19 11:05 09/22/19 11:06 DC Bupivacaine HCl (Sensorcaine 0.5% Vial) 5 mg STK-MED ONCE .ROUTE 09/22/19 11:06 09/22/19 11:07 DC Lidocaine HCl (Lidocaine 2% Vial) 500 mg STK-MED ONCE .ROUTE 09/22/19 11:06 09/22/19 11:08 DC Rocuronium Paxton (Zemuron) 100 mg STK-MED ONCE IV 09/22/19 11:22 09/22/19 11:23 DC Acetaminophen (Tylenol) 1,000 mg OT PO 09/22/19 11:30 09/22/19 12:38 DC 09/22/19 12:29 Gabapentin (Neurontin) 400 mg OT PO 09/22/19 11:30 09/22/19 12:36 DC 09/22/19 12:29 Acetaminophen (Tylenol) 1,000 mg Q6H PO 09/22/19 11:30 10/22/19 11:29 Gabapentin (Neurontin) 400 mg Q24HRS PO 09/23/19 11:30 09/23/19 11:31 Gabapentin (Neurontin) 300 mg BID PO 09/22/19 21:00 10/22/19 20:59 09/23/19 08:42 Levothyroxine Sodium (Synthroid) 50 mcg ACB PO 09/23/19 06:30 10/23/19 06:29 09/23/19 05:33 Pantoprazole Sodium (Protonix) 40 mg DAILY PO 09/23/19 09:00 10/23/19 08:59 09/23/19 08:42 Sotalol HCl (Betapace) 80 mg BID PO 09/22/19 21:00 10/22/19 20:59 09/23/19 08:42 Tamsulosin HCl (Flomax) 0.4 mg DAILY PO 09/23/19 09:00 10/23/19 08:59 09/23/19 08:42 Famotidine (Pepcid) 20 mg BID PO 09/22/19 21:00 10/22/19 20:59 09/23/19 08:42 Rivaroxaban (Xarelto) 20 mg HS PO 09/22/19 21:00 09/22/19 17:40 DC Atorvastatin Calcium (Lipitor) 20 mg HS PO 09/22/19 21:00 10/22/19 20:59 09/22/19 22:05 Tramadol HCl (Ultram) 50 mg Q6H PO 09/22/19 12:00 09/22/19 17:40 DC Tramadol HCl (Ultram) 100 mg Q6H PRN PO PAIN 7 - 10 09/22/19 12:00 09/22/19 17:40 DC Zolpidem Tartrate (Ambien) 5 mg HS PRN PO INSOMNIA 09/22/19 12:00 10/22/19 11:59 Docusate Sodium (Colace) 100 mg DAILY PO 09/23/19 09:00 10/23/19 08:59 09/23/19 08:42 Throat Lozenges (Cepacol Sore Throat Lozenge) 1 each PRN PRN MM SORE THROAT 09/22/19 12:00 10/22/19 11:59 Famotidine (Pepcid) 20 mg DAILY PO 09/23/19 09:00 09/22/19 20:47 DC Cefazolin Sodium/ Dextrose (Ancef 2 Gm/D5W 50ml) 2 gm Q8 IV 09/22/19 14:00 09/22/19 12:46 DC Tranexamic Acid (Tranexamic Acid) 1,000 mg STK-MED ONCE IV 09/22/19 12:16 09/22/19 12:17 DC Cefazolin Sodium 2 gm/Sodium Chloride 100 ml @ 100 mls/hr Q8 IV 09/22/19 14:00 09/23/19 06:59 DC 09/23/19 05:33 Hydromorphone HCl (Dilaudid) 0.2 mg Q5M PRN IV PAIN 1-3 09/22/19 14:00 09/22/19 20:46 DC Fentanyl Citrate (Sublimaze) 25 mcg Q5MIN PRN IV PAIN 09/22/19 14:00 09/22/19 20:48 DC Ondansetron HCl (Zofran 4 Mg/2 ml Vial) 4 mg OT ONCE IV 09/22/19 14:00 09/22/19 14:01 DC 09/22/19 17:56 Promethazine HCl (Phenergan) 6.25 mg PRN PRN IV NAUSEA / VOMITING 09/22/19 14:00 09/22/19 20:47 DC Labetalol HCl (Trandate) 5 mg Q5MIN PRN IV HYPERTENSION 09/22/19 14:00 09/22/19 20:47 DC Hydralazine HCl (Apresoline) 5 mg Q5MIN PRN IV HYPERTENSION 09/22/19 14:00 09/22/19 20:45 DC Sodium Chloride (Sodium Chloride) 1,000 ml STK-MED ONCE IR 09/22/19 13:52 09/22/19 13:53 DC Sterile Water (Water) 1,000 ml STK-MED ONCE .ROUTE 09/22/19 13:52 09/22/19 13:53 DC Sodium Chloride 100 ml @ ud STK-MED ONCE IV 09/22/19 13:52 09/22/19 13:53 DC Sodium Chloride 250 ml @ ud STK-MED ONCE IV 09/22/19 13:52 09/22/19 13:54 DC Sodium Chloride (NS 3000ml Irr) 3,000 ml STK-MED ONCE IR 09/22/19 13:52 09/22/19 13:54 DC Rivaroxaban (Xarelto) 20 mg HS PO 09/23/19 18:00 10/23/19 17:59 Tramadol HCl (Ultram) 50 mg Q4HR PO 09/22/19 18:00 10/22/19 11:59 09/22/19 22:04 Tramadol HCl (Ultram) 100 mg Q4HR PRN PO PAIN MODERATE 09/22/19 18:00 10/22/19 11:59 Hydromorphone HCl (Dilaudid) 2 mg Q4H PRN IV PAIN 7 - 10 09/22/19 18:00 10/22/19 17:59 Ephedrine Sulfate (Ephedrine Sulfate) 50 mg STK-MED ONCE .ROUTE 09/22/19 17:38 09/22/19 17:40 DC Ondansetron HCl (Zofran 4 Mg/2 ml Vial) 4 mg STK-MED ONCE .ROUTE 09/22/19 17:54 09/22/19 17:56 DC Famotidine (Pepcid) 20 mg STK-MED ONCE IV 09/22/19 18:01 09/22/19 18:03 DC Famotidine (Pepcid) 20 mg STAT STAT IV 09/22/19 18:03 09/22/19 20:44 DC 09/22/19 18:12 Metoclopramide HCl (Reglan) 10 mg STAT STAT IV 09/22/19 18:04 09/22/19 20:44 DC 09/22/19 18:12 Course Sepsis Screening Results: Posi: POSITIVE Sepsis Qualifier/Stage: SEPSIS RISK Vitals & review Data Vital Sign - Last 24 Hours 09/22/19 09/22/19 09/22/19 09/22/19 11:44 11:44 13:07 13:17 Temp 97.0 Pulse 54 51 52 Resp 16 16 16 B/P (MAP) 155/99 (117) 125/84 (98) 140/67 (91) Pulse Ox 97 97 94 O2 Delivery Room Air Room Air Room Air Room Air 09/22/19 09/22/19 09/22/19 09/22/19 13:28 17:25 17:25 17:35 Temp 97.1 97.1 Pulse 55 76 69 Resp 16 16 16 B/P (MAP) 113/83 (93) 136/79 (98) 135/83 (100) Pulse Ox 98 97 96 O2 Delivery Room Air Non-Rebreather Non-Rebreather O2 Flow Rate 15 15 15 09/22/19 09/22/19 09/22/19 09/22/19 17:45 17:55 18:05 18:15 Temp 97.1 97.1 97.1 97.1 Pulse 65 67 70 70 Resp 16 16 16 16 B/P (MAP) 141/90 (107) 135/81 (99) 128/92 (104) 134/90 (105) Pulse Ox 97 97 94 96 O2 Delivery Non-Rebreather Nasal Canula Nasal Canula Nasal Canula O2 Flow Rate 15 3 3 3 09/22/19 09/22/19 09/22/19 09/22/19 18:25 20:00 20:38 21:00 Temp 97.1 97.7 97.7 Pulse 73 74 77 Resp 16 18 16 B/P (MAP) 148/78 (101) 137/68 (91) 126/70 (88) Pulse Ox 96 O2 Delivery Nasal Canula Nasal Canula Nasal Cannula Nasal Canula O2 Flow Rate 32 2.00 2.00 2.00 09/23/19 09/23/19 09/23/19 09/23/19 00:00 04:42 07:52 08:34 Temp 97.7 97.2 97.3 Pulse 68 66 69 69 Resp 16 18 18 18 B/P (MAP) 112/64 (80) 123/90 (101) 112/74 (87) Pulse Ox 92 96 O2 Delivery Nasal Canula Nasal Canula Nasal Canula Nasal Cannula O2 Flow Rate 2.00 2.00 2.00 1.50 FiO2 26 09/23/19 08:36 Resp 18 Pulse Ox 96 Intake and Output 09/22/19 09/22/19 09/23/19 15:00 23:00 07:00 Intake Total 200 ml 2400 ml 200 ml Output Total 190 ml 800 ml Balance 200 ml 2210 ml -600 ml Laboratory Tests Test 09/22/19 17:29 09/23/19 04:45 Bedside Glucose 164 White Blood Count 13.1 10^3/uL Red Blood Count 3.75 10^6/uL Hemoglobin 12.8 g/dL Hematocrit 38.4 % Mean Corpuscular Volume 102.4 fL Mean Corpuscular Hemoglobin 34.1 pg Mean Corpuscular Hemoglobin Concent 33.3 g/dL Red Cell Distribution Width 13.5 % Platelet Count 219 10^3/uL Mean Platelet Volume 10.3 fL Sodium Level 138 mmol/L Potassium Level 4.5 mmol/L Chloride Level 103.0 mmol/L Carbon Dioxide Level 26.5 mmol/L Glucose Level 209 mg/dL Blood Urea Nitrogen 17 mg/dL Creatinine 1.34 mg/dL Calcium Level 8.5 mg/dL Anion Gap 13.0 Estimated GFR () 62.5 BUN/Creatinine Ratio 12.0 Current Medications Medications (Trade) Dose Ordered Sig/Eli PRN Reason Start Time Stop Time Status Last Admin Acetaminophen (Tylenol) 1,000 mg Q6H 09/22/19 11:30 10/22/19 11:29 Atorvastatin Calcium (Lipitor) 20 mg HS 09/22/19 21:00 10/22/19 20:59 09/22/19 22:05 Docusate Sodium (Colace) 100 mg DAILY 09/23/19 09:00 10/23/19 08:59 09/23/19 08:42 Famotidine (Pepcid) 20 mg BID 09/22/19 21:00 10/22/19 20:59 09/23/19 08:42 Gabapentin (Neurontin) 300 mg BID 09/22/19 21:00 10/22/19 20:59 09/23/19 08:42 Gabapentin (Neurontin) 400 mg Q24HRS 09/23/19 11:30 09/23/19 11:31 Hydromorphone HCl (Dilaudid) 2 mg Q4H PRN PAIN 7 - 10 09/22/19 18:00 10/22/19 17:59 Levothyroxine Sodium (Synthroid) 50 mcg ACB 09/23/19 06:30 10/23/19 06:29 09/23/19 05:33 Pantoprazole Sodium (Protonix) 40 mg DAILY 09/23/19 09:00 10/23/19 08:59 09/23/19 08:42 Rivaroxaban (Xarelto) 20 mg HS 09/23/19 18:00 10/23/19 17:59 Sotalol HCl (Betapace) 80 mg BID 09/22/19 21:00 10/22/19 20:59 09/23/19 08:42 Tamsulosin HCl (Flomax) 0.4 mg DAILY 09/23/19 09:00 10/23/19 08:59 09/23/19 08:42 Throat Lozenges (Cepacol Sore Throat Lozenge) 1 each PRN PRN SORE THROAT 09/22/19 12:00 10/22/19 11:59 Tramadol HCl (Ultram) 50 mg Q4HR 09/22/19 18:00 10/22/19 11:59 09/22/19 22:04 Tramadol HCl (Ultram) 100 mg Q4HR PRN PAIN MODERATE 09/22/19 18:00 10/22/19 11:59 Zolpidem Tartrate (Ambien) 5 mg HS PRN INSOMNIA 09/22/19 12:00 10/22/19 11:59 LEVEL 1 SEPSIS INFECTION CRITE: ABX Therapy, Flu-Pneumonia, Recent Invasive Procedure LEVEL 2-SIRS (LIST ALL THAT AP: None/Not assessed Cardiovascular Evidence: Not Assessed or None Hematologic Evidence: None/Not assessed Hepatic Evidence: None/Not assessed Metabolic Evidence: None/Not assessed Neurological Evidence: None/Not assessed Respiratory Evidence: Need for O2 to keep>90% Renal Evidence: None/Not assessed O2 Sat by Pulse Oximetry: 93 Oxygen Flow Rate: 2.00 ZIGGY AGEE MD Sep 28, 2019 13:38
[2019-09-28] MEDS ORDERED: GUAI600T31 PO (14:15)
[2019-09-28] MEDS ORDERED: CEPH-350 PO (14:15)
--- NOTE | 2019-09-28 14:24 | PRM.DC ---
Discharge Summary Date of Discharge: Sep 25, 2019 Time of Request to Discharge: 14:10 Reason for Visit: S/P Left Hip Replacement Hospital Course Patient admitted following Hip replacement surgery. Hospital course complicated and d/c held 2/2 Hypoxia. Patient has chronic lung disease with hypoxia that was never diagnosed. During periods of hypoxia patient would have transient episodes of RVR. Patient was qualified for home O2. Patient previously d/c on 09/25 but prior to d/c, patient choked/aspirated on drink. BULK FOLDER consulted and ev aluated and placed patient on dysphagia diet, please see report for details. Patient did not want to leave after because he felt something was stuck in his throat. Surgery consulted and patient underwent EGD. Mucous plug removed by surgery and there were no other abnormalities. See operative report for further details. BULK FOLDER came back in to further evaluate patient to offer reassurance. Patient was kept on specific dysphagia diet and patient tolerated. Patient was evaluated with CXR and developed Pneumonia. He was started on IV abx and will be d/c on course of PO abx. Further education was given. Patient had delirium as well. That improved with resolution of Constipation. Patient had significant stool burden that resolved with suppository and PO contrast. Patient is medically cleared for d/c. He can f/u outpatient with Surgery as needed and BULK FOLDER as needed. He will f/u with PCP/Cardiology within 1-2 weeks. F/U with Orthopedic Surgery tomorrow. Strict return precautions given. Patient will d/c on course of PO abx. Patient History: Cerebrovascular disorder G8 BROTHER, , Age:91 Congestive heart failure G8 BROTHER, , Age:59 Diabetes mellitus 33 FATHER, , Age:86 No known health problems G8 SISTER G8 SISTER V19 CHILD V19 CHILD V19 CHILD Parkinson's disease G8 BROTHER, , Age:81 No Family History of: Alzheimer's disease Asthma Chronic obstructive pulmonary disease Diabetes insipidus Hypertension General: Alert, Oriented X3, Cooperative, No acute distress HEENT: Atraumatic, PERRLA, EOMI Neck: Supple, No JVD Lungs: Clear to auscultation, Normal air movement Heart: Normal S1, Normal S2, No murmurs Abdomen: Normal bowel sounds, Soft, No tenderness Extremities: No edema, Normal pulses, No tenderness/swelling Skin: No rashes, No breakdown, No significant lesion Neuro: Normal gait, Normal speech, Strength at 5/5 X4 ext, Normal tone, Sensation intact, Cranial nerves 3-12 NL Psych/Mental Status: Mental status NL, Mood NL Scheduled Cephalexin (Keflex), 500 MG PO TID Gabapentin (Gabapentin), 1 CAP PO BID, (Reported) Guaifenesin (Mucinex), 600 MG PO BID Levothyroxine Sodium (Levothyroxine Sodium), 1 TAB PO DAILY, (Reported) Pantoprazole Sodium (Pantoprazole Sodium), 1 TAB PO DAILY, (Reported) Ranitidine Hcl (Ranitidine Hcl), 1 TAB PO BID, (Reported) Rivaroxaban (Xarelto), 1 TAB PO HS, (Reported) Rosuvastatin 5MG (Crestor 5MG), 1 TAB PO DAILY, (Reported) Sotalol Hcl (Sotalol), 1 TAB PO BID, (Reported) Tamsulosin Hcl (Flomax), 1 CAP PO DAILY, (Reported) Scheduled PRN Levalbuterol Tartrate (Xopenex Hfa), 15 GM IH Q4 PRN for dyspnea Tramadol Hcl (Tramadol Hcl), 50 MG PO Q4HR PRN for PAIN Sepsis Evaluation @ Discharge Vital Sign - Last 24 Hours 09/22/19 09/22/19 09/22/19 09/22/19 11:44 11:44 13:07 13:17 Temp 97.0 Pulse 54 51 52 Resp 16 16 16 B/P (MAP) 155/99 (117) 125/84 (98) 140/67 (91) Pulse Ox 97 97 94 O2 Delivery Room Air Room Air Room Air Room Air 09/22/19 09/22/19 09/22/19 09/22/19 13:28 17:25 17:25 17:35 Temp 97.1 97.1 Pulse 55 76 69 Resp 16 16 16 B/P (MAP) 113/83 (93) 136/79 (98) 135/83 (100) Pulse Ox 98 97 96 O2 Delivery Room Air Non-Rebreather Non-Rebreather O2 Flow Rate 15 15 15 09/22/19 09/22/19 09/22/19 09/22/19 17:45 17:55 18:05 18:15 Temp 97.1 97.1 97.1 97.1 Pulse 65 67 70 70 Resp 16 16 16 16 B/P (MAP) 141/90 (107) 135/81 (99) 128/92 (104) 134/90 (105) Pulse Ox 97 97 94 96 O2 Delivery Non-Rebreather Nasal Canula Nasal Canula Nasal Canula O2 Flow Rate 15 3 3 3 09/22/19 09/22/19 09/22/19 09/22/19 18:25 20:00 20:38 21:00 Temp 97.1 97.7 97.7 Pulse 73 74 77 Resp 16 18 16 B/P (MAP) 148/78 (101) 137/68 (91) 126/70 (88) Pulse Ox 96 O2 Delivery Nasal Canula Nasal Canula Nasal Cannula Nasal Canula O2 Flow Rate 32 2.00 2.00 2.00 09/23/19 09/23/19 09/23/19 09/23/19 00:00 04:42 07:52 08:34 Temp 97.7 97.2 97.3 Pulse 68 66 69 69 Resp 16 18 18 18 B/P (MAP) 112/64 (80) 123/90 (101) 112/74 (87) Pulse Ox 92 96 O2 Delivery Nasal Canula Nasal Canula Nasal Canula Nasal Cannula O2 Flow Rate 2.00 2.00 2.00 1.50 FiO2 26 09/23/19 08:36 Resp 18 Pulse Ox 96 Intake and Output 09/22/19 09/22/19 09/23/19 15:00 23:00 07:00 Intake Total 200 ml 2400 ml 200 ml Output Total 190 ml 800 ml Balance 200 ml 2210 ml -600 ml Laboratory Tests Test 09/22/19 17:29 09/23/19 04:45 Bedside Glucose 164 White Blood Count 13.1 10^3/uL Red Blood Count 3.75 10^6/uL Hemoglobin 12.8 g/dL Hematocrit 38.4 % Mean Corpuscular Volume 102.4 fL Mean Corpuscular Hemoglobin 34.1 pg Mean Corpuscular Hemoglobin Concent 33.3 g/dL Red Cell Distribution Width 13.5 % Platelet Count 219 10^3/uL Mean Platelet Volume 10.3 fL Sodium Level 138 mmol/L Potassium Level 4.5 mmol/L Chloride Level 103.0 mmol/L Carbon Dioxide Level 26.5 mmol/L Glucose Level 209 mg/dL Blood Urea Nitrogen 17 mg/dL Creatinine 1.34 mg/dL Calcium Level 8.5 mg/dL Anion Gap 13.0 Estimated GFR () 62.5 BUN/Creatinine Ratio 12.0 Current Medications Medications (Trade) Dose Ordered Sig/Eli PRN Reason Start Time Stop Time Status Last Admin Acetaminophen (Tylenol) 1,000 mg Q6H 09/22/19 11:30 10/22/19 11:29 Atorvastatin Calcium (Lipitor) 20 mg HS 09/22/19 21:00 10/22/19 20:59 09/22/19 22:05 Docusate Sodium (Colace) 100 mg DAILY 09/23/19 09:00 10/23/19 08:59 09/23/19 08:42 Famotidine (Pepcid) 20 mg BID 09/22/19 21:00 10/22/19 20:59 09/23/19 08:42 Gabapentin (Neurontin) 300 mg BID 09/22/19 21:00 10/22/19 20:59 09/23/19 08:42 Gabapentin (Neurontin) 400 mg Q24HRS 09/23/19 11:30 09/23/19 11:31 Hydromorphone HCl (Dilaudid) 2 mg Q4H PRN PAIN 7 - 10 09/22/19 18:00 10/22/19 17:59 Levothyroxine Sodium (Synthroid) 50 mcg ACB 09/23/19 06:30 10/23/19 06:29 09/23/19 05:33 Pantoprazole Sodium (Protonix) 40 mg DAILY 09/23/19 09:00 10/23/19 08:59 09/23/19 08:42 Rivaroxaban (Xarelto) 20 mg HS 09/23/19 18:00 10/23/19 17:59 Sotalol HCl (Betapace) 80 mg BID 09/22/19 21:00 10/22/19 20:59 09/23/19 08:42 Tamsulosin HCl (Flomax) 0.4 mg DAILY 09/23/19 09:00 10/23/19 08:59 09/23/19 08:42 Throat Lozenges (Cepacol Sore Throat Lozenge) 1 each PRN PRN SORE THROAT 09/22/19 12:00 10/22/19 11:59 Tramadol HCl (Ultram) 50 mg Q4HR 09/22/19 18:00 10/22/19 11:59 09/22/19 22:04 Tramadol HCl (Ultram) 100 mg Q4HR PRN PAIN MODERATE 09/22/19 18:00 10/22/19 11:59 Zolpidem Tartrate (Ambien) 5 mg HS PRN INSOMNIA 09/22/19 12:00 10/22/19 11:59 Course Sepsis Screening Results: Posi: POSITIVE Sepsis Qualifier/Stage: SEPSIS RISK Vitals & review Data Vital Sign - Last 24 Hours 09/22/19 09/22/19 09/22/19 09/22/19 11:44 11:44 13:07 13:17 Temp 97.0 Pulse 54 51 52 Resp 16 16 16 B/P (MAP) 155/99 (117) 125/84 (98) 140/67 (91) Pulse Ox 97 97 94 O2 Delivery Room Air Room Air Room Air Room Air 09/22/19 09/22/19 09/22/19 09/22/19 13:28 17:25 17:25 17:35 Temp 97.1 97.1 Pulse 55 76 69 Resp 16 16 16 B/P (MAP) 113/83 (93) 136/79 (98) 135/83 (100) Pulse Ox 98 97 96 O2 Delivery Room Air Non-Rebreather Non-Rebreather O2 Flow Rate 15 15 15 09/22/19 09/22/19 09/22/19 09/22/19 17:45 17:55 18:05 18:15 Temp 97.1 97.1 97.1 97.1 Pulse 65 67 70 70 Resp 16 16 16 16 B/P (MAP) 141/90 (107) 135/81 (99) 128/92 (104) 134/90 (105) Pulse Ox 97 97 94 96 O2 Delivery Non-Rebreather Nasal Canula Nasal Canula Nasal Canula O2 Flow Rate 15 3 3 3 09/22/19 09/22/19 09/22/19 09/22/19 18:25 20:00 20:38 21:00 Temp 97.1 97.7 97.7 Pulse 73 74 77 Resp 16 18 16 B/P (MAP) 148/78 (101) 137/68 (91) 126/70 (88) Pulse Ox 96 O2 Delivery Nasal Canula Nasal Canula Nasal Cannula Nasal Canula O2 Flow Rate 32 2.00 2.00 2.00 09/23/19 09/23/19 09/23/19 09/23/19 00:00 04:42 07:52 08:34 Temp 97.7 97.2 97.3 Pulse 68 66 69 69 Resp 16 18 18 18 B/P (MAP) 112/64 (80) 123/90 (101) 112/74 (87) Pulse Ox 92 96 O2 Delivery Nasal Canula Nasal Canula Nasal Canula Nasal Cannula O2 Flow Rate 2.00 2.00 2.00 1.50 FiO2 26 09/23/19 08:36 Resp 18 Pulse Ox 96 Intake and Output 09/22/19 09/22/19 09/23/19 15:00 23:00 07:00 Intake Total 200 ml 2400 ml 200 ml Output Total 190 ml 800 ml Balance 200 ml 2210 ml -600 ml Laboratory Tests Test 09/22/19 17:29 09/23/19 04:45 Bedside Glucose 164 White Blood Count 13.1 10^3/uL Red Blood Count 3.75 10^6/uL Hemoglobin 12.8 g/dL Hematocrit 38.4 % Mean Corpuscular Volume 102.4 fL Mean Corpuscular Hemoglobin 34.1 pg Mean Corpuscular Hemoglobin Concent 33.3 g/dL Red Cell Distribution Width 13.5 % Platelet Count 219 10^3/uL Mean Platelet Volume 10.3 fL Sodium Level 138 mmol/L Potassium Level 4.5 mmol/L Chloride Level 103.0 mmol/L Carbon Dioxide Level 26.5 mmol/L Glucose Level 209 mg/dL Blood Urea Nitrogen 17 mg/dL Creatinine 1.34 mg/dL Calcium Level 8.5 mg/dL Anion Gap 13.0 Estimated GFR () 62.5 BUN/Creatinine Ratio 12.0 Current Medications Medications (Trade) Dose Ordered Sig/Eli PRN Reason Start Time Stop Time Status Last Admin Acetaminophen (Tylenol) 1,000 mg Q6H 09/22/19 11:30 10/22/19 11:29 Atorvastatin Calcium (Lipitor) 20 mg HS 09/22/19 21:00 10/22/19 20:59 09/22/19 22:05 Docusate Sodium (Colace) 100 mg DAILY 09/23/19 09:00 10/23/19 08:59 09/23/19 08:42 Famotidine (Pepcid) 20 mg BID 09/22/19 21:00 10/22/19 20:59 09/23/19 08:42 Gabapentin (Neurontin) 300 mg BID 09/22/19 21:00 10/22/19 20:59 09/23/19 08:42 Gabapentin (Neurontin) 400 mg Q24HRS 09/23/19 11:30 09/23/19 11:31 Hydromorphone HCl (Dilaudid) 2 mg Q4H PRN PAIN 7 - 10 09/22/19 18:00 10/22/19 17:59 Levothyroxine Sodium (Synthroid) 50 mcg ACB 09/23/19 06:30 10/23/19 06:29 09/23/19 05:33 Pantoprazole Sodium (Protonix) 40 mg DAILY 09/23/19 09:00 10/23/19 08:59 09/23/19 08:42 Rivaroxaban (Xarelto) 20 mg HS 09/23/19 18:00 10/23/19 17:59 Sotalol HCl (Betapace) 80 mg BID 09/22/19 21:00 10/22/19 20:59 09/23/19 08:42 Tamsulosin HCl (Flomax) 0.4 mg DAILY 09/23/19 09:00 10/23/19 08:59 09/23/19 08:42 Throat Lozenges (Cepacol Sore Throat Lozenge) 1 each PRN PRN SORE THROAT 09/22/19 12:00 10/22/19 11:59 Tramadol HCl (Ultram) 50 mg Q4HR 09/22/19 18:00 10/22/19 11:59 09/22/19 22:04 Tramadol HCl (Ultram) 100 mg Q4HR PRN PAIN MODERATE 09/22/19 18:00 10/22/19 11:59 Zolpidem Tartrate (Ambien) 5 mg HS PRN INSOMNIA 09/22/19 12:00 10/22/19 11:59 LEVEL 1 SEPSIS INFECTION CRITE: ABX Therapy, Flu-Pneumonia, Recent Invasive Procedure LEVEL 2-SIRS (LIST ALL THAT AP: None/Not assessed Cardiovascular Evidence: Not Assessed or None Hematologic Evidence: None/Not assessed Hepatic Evidence: None/Not assessed Metabolic Evidence: None/Not assessed Neurological Evidence: None/Not assessed Respiratory Evidence: Need for O2 to keep>90% Renal Evidence: None/Not assessed O2 Sat by Pulse Oximetry: 93 Oxygen Flow Rate: 2.00 Plan Discharge Date: Sep 28, 2019 Dicharge DX: Hip Arthroplasty, COPD, Hypoxic Respiratory failure, Pneumonia, KRISTEN, Deliri Discharge Disposition: Stable Plan ok to d/c to home self care medications: per med rec list Diet: Dysphagia per BULK FOLDER recs Activity: per Ortho instruction F/U with Orthopedic Surgery 09/29. F/U with PCP/Cardiology within 1-2 weeks. F/U with BULK FOLDER as needed. Return to care for worsening/concerning symptoms OMI BORJA MD Sep 28, 2019 14:24
--- NOTE | 2019-09-28 15:07 | NUR ---
DISCHARGE PATIENT DISCHARGED HOME AT THIS TIME, PROVIDED DISCHARGE INSTRUCTIONS REGARDING FOLLOWUP WITH DR. AGEE, NEW MEDICATIONS, AND POST OP CARE. PATIENT DENIES ANY QUESTIONS OR NEEDS AT THIS TIME, PATIENT WHEELED OF THE UNIT VIA WHEEL CHAIR TO PRIVATE AUTO, NO S/S OF DISTRESS, RELINQUISHED CARE OF PATIENT AT THIS TIME
[2019-09-28 15:17] VITALS: BP 141/80
--- NOTE | 2019-09-29 09:59 | PNH ---
DATE: 09/28/2019 SUBJECTIVE: This is a 79-year-old male in no acute distress. He is seen in his room. He is up to chair, apparently tolerating some breakfast, but he has concerns for aspiration. OBJECTIVE: VITAL SIGNS: Last temperature is 98.4, pulse 75, respiratory rate 18, blood pressure 141/80. ABDOMEN: The bowel sounds are positive and soft. He has no significant tenderness on exam. He is slightly distended. LABORATORY STUDIES: Today show white count 7.0, hemoglobin 10.4, platelet count 227. Chemistry today shows BUN of 13, creatinine of 1.24. Total bilirubin is slightly up today at 1.4 with AST of 43. ASSESSMENT: 1. History of dysphagia. 2. Status post left hip surgery. 3. History of hypertension. PLAN: 1. The patient is seen and examined. Chart was reviewed. He is tolerating some diet, although he has had some small bowel movements. I have ordered an x-ray to help evaluate his bowel status. 2. As he does have an elevated bilirubin, if this does not improve, he should have an ultrasound in the future. 3. Continue the excellent medical management by the hospitalist service. Rell Knight DO DR: JANIS/juana JOB# [id number] CC: Richard Vasquez M.D.
== END 2019-09-28 15:10 | disposition home or self-care (01) | DRG 469 ==
LOC: SDC 11:44 → MS 12:22 → EDPENDDISDT 09-28 15:07 → EDPENDDISTM 09-28 15:07
PROVIDERS: ADMIT Orthopaedic Surgery; ATTEND Orthopaedic Surgery
PROC: 0SRB019 Replacement of Left Hip Joint with Metal Synthetic Substitute, Cemented, Open Approach (ICD-10-PCS; principal; 2019-09-22 14:35)
PROC: 0DB68ZX Excision of Stomach, Via Natural or Artificial Opening Endoscopic, Diagnostic (ICD-10-PCS; 2019-09-27)
DX: M16.12 Unilateral primary osteoarthritis, left hip (principal); J18.9 Pneumonia, unspecified organism; J96.91 Respiratory failure, unspecified with hypoxia; N17.9 Acute kidney failure, unspecified; J44.0 Chronic obstructive pulmonary disease with (acute) lower respiratory infection; E03.9 Hypothyroidism, unspecified; E11.9 Type 2 diabetes mellitus without complications; E78.5 Hyperlipidemia, unspecified; I10 Essential (primary) hypertension; I48.91 Unspecified atrial fibrillation; K29.70 Gastritis, unspecified, without bleeding; K31.7 Polyp of stomach and duodenum; K21.9 Gastro-esophageal reflux disease without esophagitis; E66.9 Obesity, unspecified; K44.9 Diaphragmatic hernia without obstruction or gangrene; N40.0 Benign prostatic hyperplasia without lower urinary tract symptoms; Z79.01 Long term (current) use of anticoagulants; Z83.3 Family history of diabetes mellitus; Z87.891 Personal history of nicotine dependence; Z99.81 Dependence on supplemental oxygen; Z79.899 Other long term (current) drug therapy; Z82.3 Family history of stroke; Z81.8 Family history of other mental and behavioral disorders; Z82.49 Family history of ischemic heart disease and other diseases of the circulatory system; Z68.28 Body mass index [BMI] 28.0-28.9, adult; T17.398A Other foreign object in larynx causing other injury, initial encounter
CPT/HCPCS: 36415; 71045; 73502; 74019; 76000; 80048; 80053; 82948; 83036; 85025; 85027; 87070; 92526; 92610; 93005; 97163; 97165; A4217; C1713; G0378; J0690; J1100; J1170; J2001; J2250; J2405; J2543; J2710; J3010; J3490; J7050; J7120; 88305; 97116-GP; 97535-GO; A9270; C1776; J1630

== ENCOUNTER → 2021-04-26 | Outpatient (CLI) | payer MEDICARE ==
[~2021-04-26] MED LIST changes: -ANCEF ONE; -BACTROBAN OINTMENT TP ONE; -BRIDION IV ONE; +CEPH-350 PO; -DECADRON ONE; -DILAUDID ONE; -DIPRIVAN IV ONE; -EXPAREL 133 MG/10 ML VIAL IJ ONE; +GUAI600T31 PO; +LEVA15HF4 IH; -LIDOCAINE 2% VIAL ONE; -NEOSTIGMINE ONE; -NEURONTIN PO SCH; -NS 100ML 100 ML IV ONE; -PANT40TA5 PO; +PANT40TA6 PO; -SENSORCAINE 0.5% VIAL ONE; -SUBLIMAZE ONE; +TRAM50TA PO; -TYLENOL PO SCH; -VERSED ONE; -ZEMURON IV ONE; -ZOFRAN 4 MG/2 ML VIAL ONE
[2021-04-26 16:03] LABS: MEAN CORP HGB 30.7 pg (26-34); RED CELL DISTRIBUTION WIDTH 14.5 % (11.5-14.5)
== END | disposition home or self-care (01) ==
LOC: LAB 15:43
PROVIDERS: ATTEND Orthopaedic Surgery
DX: M25.552 Pain in left hip (principal)
CPT/HCPCS: 36415; 85027; 85651; 86140

== ENCOUNTER → 2021-05-12 | Outpatient (CLI) | payer MEDICARE ==
[~2021-05-12] MED LIST changes: +LIDOCAINE 1% VIAL IJ ONE
--- NOTE | 2021-05-12 13:03 | DIREP ---
PROCEDURE:FLUOROSCOPIC GUIDANCE left hip aspiration COMPARISON:None. INDICATIONS:M25.552 PAIN IN LEFT HIP TECHNIQUE:After explaining the risks, benefits, and alternatives, both oral and written informed consent was obtained from the patient for fluoroscopically-guided left hip aspiration. The patient's left hip area was sterilely prepped and draped. The proposed needle tract was anesthetized with 1% lidocaine solution. Under fluoroscopic guidance, a 22 gauge spinal needle was advanced into the left hip arthroplasty. A small amount of contrast was injected confirm positioning. Approximately 1 cc of aspiration was obtained. This was submitted to lab for Gram stain, culture, sensitivity. The patient experienced no postprocedural complication. Total fluoroscopy time 1.6 minutes minutes CONCLUSION:Successful fluoroscopic guided left hip arthroplasty aspiration Dictated by: Sherita Gardner M.D. on 05/12/2021 at 12:58 PM
== END | disposition home or self-care (01) ==
LOC: RAD 09:01
PROVIDERS: ATTEND Orthopaedic Surgery
DX: M25.552 Pain in left hip (principal)
CPT/HCPCS: 20610; 77002; 87070; 87075; 87077; 87186; J2001; Q9966

== ENCOUNTER 2024-11-05 12:41 | Emergency (ER) | payer MEDICARE ==
[~2024-11-05] VITALS: Ht 182.9 cm; Wt 79.8 kg
[2024-11-05 12:41] VITALS: BP 141/83; PULSE 57; RESP 18; TEMP 97.6; O2SAT 97
[~2024-11-05 12:41] MED LIST changes: +LEVA15HF IH; -LEVA15HF4 IH; -LIDOCAINE 1% VIAL IJ ONE
[2024-11-05 13:15] LABS: BASOPHIL % 0.5 % (0.2-1.2); EOSINOPHIL # 0.2 10^3/uL (0.0-0.2); EOSINOPHIL % 2.3 % (0.0-5.0); HEMATOCRIT(ML) 39.7 % (37.0-53.0); IG % 0.1 % (0.00-0.50); LYMPHOCYTES # 1.66 10^3/uL1 (1.0-4.8); LYMPHOCYTES % 18.9 % (24.0-44.0); MEAN CORP HGB 32.7 pg (26-34); MEAN CORP HGB CONCENTRATION 32.7 g/dL (33-36.5); MEAN CORP VOLUME 99.7 fL (78-100); MONOCYTES % 11.8 % (5.0-12.0); NEUTROPHIL # 5.9 10^3/uL (1.8-7.7); NEUTROPHILS % 66.4 % (41.0-85.0); RED BLOOD CELL 3.98 10^6/uL (4.50-5.90); WHITE BLOOD CELL 8.8 10^3/uL (4.5-11.0)
[2024-11-05] MEDS ORDERED: MARCAINE 0.5% ID STA (13:33)
[2024-11-05] MEDS ORDERED: DECADRON ONE (13:39)
[2024-11-05] MEDS ORDERED: MARCAINE 0.5% ONE (13:39)
[2024-11-05] MEDS ORDERED: DECADRON IJ ONE (14:00)
[2024-11-05 14:39] VITALS: BP 117/57; PULSE 55; RESP 18; TEMP 97.6; O2SAT 97
== END 2024-11-05 14:41 | disposition home or self-care (01) ==
LOC: ER 12:41
DX: M17.11 Unilateral primary osteoarthritis, right knee (principal); E11.9 Type 2 diabetes mellitus without complications; I10 Essential (primary) hypertension; Z90.49 Acquired absence of other specified parts of digestive tract
CPT/HCPCS: 99283; 73562; 85025; 36415; 84550; 86140; J1100; J3490